=== PATIENT | female | born 1945 | race Caucasian/White ===

== ENCOUNTER 2016-09-13 20:28 | Emergency (ER) | payer MEDICARE, MEDICAID ==
--- NOTE | 2016-09-13 21:03 | ER Document Report ---
ED Medical Screen (RME) - General Chief Complaint: Laceration Stated Complaint: LEFT LEG INJURY Time seen by provider: 20:55 Mode of Arrival: Wheelchair Information source: Patient Notes: This 71-year-old female presents to ED for small scratch to the left lower leg puppy scratched her last night. Pitting edema to bilateral lower extremities much worse on the left. The small scratch is draining serous fluid. Right leg calf measurement 48 cm left calf measurement is 54. Brother in law states that she is always short of breath and usually on oxygen liters nasal cannula. Denies COPD. O2 sat 85 I have greeted and performed a rapid initial assessment of this patient. A comprehensive ED assessment and evaluation of the patient, analysis of test results and completion of medical decision making process will be conducted by an additional ED providers. TRAVEL OUTSIDE OF THE [place] IN LAST 30 DAYS: No - Related Data Allergies/Adverse Reactions: codeine [Codeine] Allergy (Verified 11/18/15 23:21) demeclocycline HCl [From Declomycin] Allergy (Verified 12/23/15 09:58) oxaprozin [From Daypro] Allergy (Verified 12/23/15 09:58) Past Medical History - Past Medical History Cardiac Medical History: Reports: Hx Hypercholesterolemia, Hx Hypertension Denies: Hx Coronary Artery Disease, Hx Heart Attack Pulmonary Medical History: Reports: Hx Asthma, Hx COPD, Hx Pneumonia Denies: Hx Bronchitis Neurological Medical History: Denies: Hx Cerebrovascular Accident, Hx Seizures Musculoskeltal Medical History: Reports Hx Arthritis - Immunizations Hx Diphtheria, Pertussis, Tetanus Vaccination: Yes
--- NOTE | 2016-09-13 21:37 | ER Document Report ---
ED Wound - General Mode of Arrival: Wheelchair Information source: Patient TRAVEL OUTSIDE OF THE [place] IN LAST 30 DAYS: No - HPI Patient complains to provider of: Laceration Capillary refill: < 3 seconds Sensations intact: Yes Distal pulses present: Yes <PEYTON MCNAIR - Last Filed: 09/13/16 21:42> <JIN MADSEN - Last Filed: 09/14/16 02:03> <SHARON ELLIS - Last Filed: 09/14/16 06:12> - General Chief Complaint: Edema Stated Complaint: LEFT LEG INJURY Notes: Patient is a 71-year-old female that presents to the emergency department today with complaints of a wound to her left carpenter. Patient states her dog scratched her left carpenter yesterday. Patient complains of this wound draining a large amount of clear fluid since yesterday. Patient has extensive bilateral edema to her lower extremities. Patient is not on any fluid pills. Family at bedside states this extensive edema has been an issue for several years (PEYTON MCNAIR) This 71-year-old female patient comes emergency room for a deep scratch to her left lower leg which is weeping fluid all day. She got a new puppy which scratched her left lower leg yesterday. She has been oozing clear fluid from the scratch since then. She has chronic edema to her lower extremities. Today there is some erythema to the lateral aspect of the left leg near the deep scratch. Family reports the patient can't take Lasix because it makes her urinate too much. They're quite resistant to her getting diuretics unless she is admitted to the hospital. (JIN MADSEN) - Related Data Allergies/Adverse Reactions: codeine [Codeine] Allergy (Verified 11/18/15 23:21) demeclocycline HCl [From Declomycin] Allergy (Verified 12/23/15 09:58) oxaprozin [From Daypro] Allergy (Verified 12/23/15 09:58) Past Medical History - General Information source: Patient - Social History Smoking Status: Former Smoker Cigarette use (# per day): No Frequency of alcohol use: None Drug Abuse: None Lives with: Family Family History: Reviewed & Not Pertinent Patient has suicidal ideation: No Patient has homicidal ideation: No - Past Medical History Cardiac Medical History: Reports: Hx Hypercholesterolemia, Hx Hypertension Pulmonary Medical History: Reports: Hx Asthma, Hx COPD, Hx Pneumonia Musculoskeltal Medical History: Reports Hx Arthritis Surgical Hx: Negative - Immunizations Hx Diphtheria, Pertussis, Tetanus Vaccination: Yes Hx Pneumococcal Vaccination: 08/22/14 <PEYTON MCNAIR - Last Filed: 09/13/16 21:42> Review of Systems - Review of Systems Skin: See HPI, Other - wound to left carpenter draining clear fluid -: Yes All other systems reviewed and negative <PEYTON MCNAIR - Last Filed: 09/13/16 21:42> Physical Exam - General General appearance: Appears well, Alert In distress: None - HEENT Head: Normocephalic, Atraumatic Eyes: Normal - Respiratory Respiratory status: No respiratory distress Chest status: Nontender Breath sounds: Normal - Cardiovascular Rhythm: Regular Heart sounds: Normal auscultation Murmur: No - Abdominal Inspection: Obese - morbidly Tenderness: Nontender - Extremities General upper extremity: Normal inspection, Nontender. No: Edema, Normal ROM General lower extremity: Edema - Extensive edema bilaterally, L>R - Neurological Neuro grossly intact: Yes Cognition: Normal Orientation: AAOx4 Speech: Normal - Psychological Associated symptoms: Normal affect, Normal mood <PEYTON MCNAIR - Last Filed: 09/13/16 21:42> <JIN MADSEN - Last Filed: 09/14/16 02:03> <SHARON ELLIS - Last Filed: 09/14/16 06:12> - Vital signs Vitals: Resp Pulse Ox 24 H 98 09/13/16 22:34 09/13/16 22:34 (SHARON ELLIS) - Skin Notes: 1.5 cm laceration into subcutaneous tissue on left carpenter draining clear fluid, skin lateral to this is shiny and erythematous (PEYTON MCNAIR) Course <PEYTON MCNAIR - Last Filed: 09/13/16 21:42> - Laboratory Result Diagrams: 09/13/16 22:32 09/13/16 22:32 - EKG Interpretation by Co EKG shows normal: Sinus rhythm, [place], Intervals, QRS Complexes, ST-T Waves Rate: Normal - 70 Rhythm: NSR Voltage: Consistant with LVH - Transfer of Care Care transferred to following provider: Dr. Ellis <JIN MADSEN - Last Filed: 09/14/16 02:03> - Laboratory Result Diagrams: 09/13/16 22:32 09/13/16 22:32 <SHARON ELLIS - Last Filed: 09/14/16 06:12> - Re-evaluation Re-evalutation: 09/13/16 23:51 The family and patient are agreeable to receiving Lasix and a Calderon catheter and staying the night in the emergency room to diurese prior to going home. This is being done because I believe the amount of edema and skin tension puts her at risk of the wound infection getting worse. (JIN MADSEN) 09/14/16 06:10 Dr. Madsen signed out the patient to me because I'm the nighttime your doctor. The plan was the patient said the Calderon catheter removed in the morning and to be discharged home with Lasix that should start taking every morning as well as antibiotic. Patient says she does feel much improved since receiving the Lasix. She is urinated 2 L overnight. She looks well. She has no difficulty breathing on exam. Her oxygen saturation is 96% on 2 liters. Her left lower extremity just has very faint redness. I did have a nurse come in and she says that the leg looks improved to her as well. I feel the patient is safe to continue with the plan to be discharged home. We will remove the calderon catheter and discharge her home as previous planned by Dr. Madsen. Patient encouraged return to ER immediately if she has any redness or increased swelling to the leg, or she feels unwell in anyway. Patient agrees and will be discharged home. Dictation of this chart was performed using voice recognition software; therefore, there may be some unintended grammatical errors. (SHARON ELLIS) - Vital Signs Vital signs: Temp Pulse Resp BP Pulse Ox 24 H 91 L 09/14/16 01:00 09/14/16 01:00 (SHARON ELLIS) - Laboratory Laboratory results interpreted by me: 09/13/16 09/13/16 09/13/16 22:32 22:32 22:32 RBC 3.54 L Hgb 10.4 L Hct 33.3 L MCHC 31.4 L RDW 15.3 H Seg Neutrophils % 82.7 H Lymphocytes % 6.3 L Absolute Lymphocytes 0.4 L BUN 24 H Est GFR ( Amer) 59 L Est GFR (Non-Af Amer) 49 L Glucose 128 H Alkaline Phosphatase 143 H Creatine Kinase 161 H NT-Pro-B Natriuret Pep 1260 H Albumin 3.4 L Urine Nitrite 09/13/16 23:20 RBC Hgb Hct MCHC RDW Seg Neutrophils % Lymphocytes % Absolute Lymphocytes BUN Est GFR ( Amer) Est GFR (Non-Af Amer) Glucose Alkaline Phosphatase Creatine Kinase NT-Pro-B Natriuret Pep Albumin Urine Nitrite POSITIVE H (JIN MADSEN) (SHARON ELLIS) - Transfer of Care Notes: 09/14/16 02:03 Patient will be allowed to remain here until the morning. Family should be called to pick her up first thing in the morning. The Calderon catheter should be removed. She has prescriptions for Lasix to take in the morning and antibiotics to take twice daily. Instructions and management should be modified if anything untoward or unexpected develops between now and when it is time for her family to pick her up in the morning. (JIN MADSEN) Discharge <PEYTON MCNAIR - Last Filed: 09/13/16 21:42> <IJN MADSEN - Last Filed: 09/14/16 02:03> <SHARON ELLIS - Last Filed: 09/14/16 06:12> - Discharge Clinical Impression: Peripheral edema Lower leg laceration with complication Qualifiers: Encounter type: initial encounter Laterality: left Qualified Code(s): S81.812A - Laceration without foreign body, left lower leg, initial encounter Condition: Stable Disposition: HOME, SELF-CARE Additional Instructions: Elevate your legs all the time. Keep the wound clean and dressed with absorbent gauze pads. Take the Lasix in the morning after you get up. The diuretic effect should last up to 6 hours. Take the antibiotics as prescribed. Follow-up with your doctor this week for recheck and further management of your edema and skin wound. RETURN TO THE EMERGENCY ROOM IF ANY NEW OR WORSENING SYMPTOMS. Prescriptions: Lasix 10mg 1 tab PO QAM #5 Amox Tr/Potassium Clavulanate [Augmentin 875-125 mg Tablet] 1 tab PO BID #20 tablet Referrals: [Primary Care Provider] - Follow up in 3-5 days Therese Attestation: 09/14/16 02:05 I personally performed the services described in the documentation, reviewed and edited the documentation which was dictated to the scribe in my presence, and it accurately records my words and actions. (JIN MADSEN) Scribe Documentation - Scribe Written by Therese:: Therese Sanches, 09/13/16 2151 acting as scribe for :: Yuri <PEYTON MCNAIR - Last Filed: 09/13/16 21:42>
[2016-09-13] MEDS ORDERED: AMOXICILLIN TR/POT CLAVULANATE 500-125 MG TAB PO ONE (22:01)
[2016-09-13] MEDS ORDERED: AMOXICILLIN TRIHYDRATE 500 MG CAPSULE PO ONE (22:01)
[2016-09-13 22:41] LABS: ABSOLUTE BASOPHILS # (AUTO) 0.1 10^3/uL (0.0-0.2); ABSOLUTE EOSINOPHILS # (AUTO) 0.1 10^3/uL (0.0-0.6); ABSOLUTE LYMPHOCYTES (AUTO) 0.4 10^3/uL (0.5-4.7); ABSOLUTE MONOCYTES (AUTO) 0.5 10^3/uL (0.1-1.4); ABSOLUTE NEUT (AUTO) 5.3 10^3/uL (1.7-8.2); BASOPHILS % (AUTO) 1.1 % (0-2); EOSINOPHILS % (AUTO) 2.2 % (0-6); HEMATOCRIT 33.3 % (36.0-47.0); HEMOGLOBIN 10.4 g/dL (12.0-15.5); HGB HCT DIFFERENCE -2.1; LYMPHOCYTES % (AUTO) 6.3 % (13-45); MEAN CORPUSCULAR HEMOGLOBIN 29.5 pg (27.0-33.4); MEAN CORPUSCULAR HGB CONC 31.4 g/dL (32.0-36.0); MEAN CORPUSCULAR VOLUME 94 fl (80-97); MONOCYTES % (AUTO) 7.7 % (3-13); RED BLOOD COUNT 3.54 10^6/uL (3.72-5.28); RED CELL DISTRIBUTION WIDTH 15.3 % (11.5-14.0); SEGMENTED NEUTROPHILS % (AUTO) 82.7 % (42-78); WHITE BLOOD COUNT 6.4 10^3/uL (4.0-10.5)
[2016-09-13 23:02] LABS: ALANINE AMINOTRANSFERASE 20 U/L (9-52); ALBUMIN 3.4 g/dL (3.5-5.0); ALKALINE PHOSPHATASE 143 U/L (38-126); ANION GAP 8 (5-19); ASPARTATE AMINO TRANSFERASE 21 U/L (14-36); BILIRUBIN,TOTAL 0.6 mg/dL (0.2-1.3); BLOOD UREA NITROGEN 24 mg/dL (7-20); CALCIUM 9.1 mg/dL (8.4-10.2); CARBON DIOXIDE 30 mmol/L (22-30); CHLORIDE 104 mmol/L (98-107); CREATINE KINASE 161 U/L (30-135); GLUCOSE 128 mg/dL (75-110); LIPASE 87.4 U/L (23-300); POTASSIUM 4.7 mmol/L (3.6-5.0); TOTAL PROTEIN 6.6 g/dL (6.3-8.2)
[2016-09-13 23:18] LABS: CREATINE KINASE MB 0.84 ng/mL (<4.55); TROPONIN I 0.032 ng/mL
[2016-09-13 23:38] LABS: APPEARANCE,URINE SLIGHTLY-CLOUDY; BILIRUBIN,URINE NEGATIVE (NEGATIVE); GLUCOSE, URINE NEGATIVE (NEGATIVE); KETONES,URINE NEGATIVE (NEGATIVE); LEUKOCYTE ESTERASE,URINE NEGATIVE (NEGATIVE); NITRITE,URINE POSITIVE (NEGATIVE); PROTEIN,URINE NEGATIVE (NEGATIVE); URINE SPECIFIC GRAVITY 1.015; UROBILINOGEN,URINE NEGATIVE mg/dL (<2.0)
[2016-09-13] MEDS ORDERED: FUROSEMIDE INJ/PF 20 MG/2 ML SDV IV ONE (23:50)
--- NOTE | 2016-09-13 23:56 | EKG REPORT ---
SEVERITY:- ABNORMAL ECG - SINUS RHYTHM PROBABLE LEFT VENTRICULAR HYPERTROPHY : Confirmed by: Tasneem Martinez 13-Sep-2016 23:55:04
[2016-09-14 06:15] VITALS: BP 101/54
== END 2016-09-14 06:30 | disposition home or self-care (01) ==
LOC: ER 20:28
DX: S81.812A Laceration without foreign body, left lower leg, initial encounter (principal); R60.9 Edema, unspecified; E66.01 Morbid (severe) obesity due to excess calories; W54.1XXA Struck by dog, initial encounter; Y92.009 Unspecified place in unspecified non-institutional (private) residence as the place of occurrence of the external cause; E78.00 Pure hypercholesterolemia, unspecified; I10 Essential (primary) hypertension; J44.9 Chronic obstructive pulmonary disease, unspecified; J45.909 Unspecified asthma, uncomplicated; Z87.891 Personal history of nicotine dependence; Z88.6 Allergy status to analgesic agent
CPT/HCPCS: 93005; 99284; 51702; 96374; 36415; 82553; 82550; 83690; 85025; 80053; 81001; 84484; 83880; 71020; 93010; A9270 ×2; J1940

== ENCOUNTER → 2016-10-29 | Outpatient (CLI) | payer MEDICARE, MEDICAID ==
--- NOTE | 2016-10-29 19:18 | XCELERA REPORT ---
[address] [address] Transthoracic Echocardiogram Report Name: ASHLEY COTTRELL Age: 71 yrs Gender: Female : 1945 Patient Status: Outpatient Patient Location: Study Date: 10/29/2016 01:06 PM Height: 60 in Weight: 296 lb BSA: 2.2 m2 Procedure: A complete two-dimensional transthoracic echocardiogram was performed (2D, M-mode, spectral and color flow Doppler). The study was technically difficult with many images being suboptimal in quality. Reason For Study: EDEMA Ordering Physician: KATERYNA CHAWLA Performed By: Ariel Cazares Interpretation Summary Left ventricular systolic function is low normal. There is borderline concentric left ventricular hypertrophy. Doppler measurements suggest pseudonormalized left ventricular relaxation, which is associated with grade II/IV or mild to moderate diastolic dysfunction The left ventricle is grossly normal size. Not all wall segments were well visualized. Wall motion cannot be accurately commented on, but no definite regional wall motion abnormalities noted. The right ventricle appears to be hypertrophied The right ventricle is moderately dilated. The right ventricular systolic function is moderately reduced. The left atrium is mildly dilated. The right atrium is mild to moderately dilated. There is no mitral valve stenosis. There is a trace to mild amount of mitral regurgitation There is no aortic valve stenosis No aortic regurgitation is present. There is a trace to mild amount of tricuspid regurgitation There is servere pulmonary hypertension by echo Best estimated right ventricular systolic pressure is elevated at >60mmHg (80-90mmHg). The aortic root is not well visualized. The inferior vena cava appeared dilated and decreased < 50% with respiration (RAP 15-20 mmHg) There is no pericardial effusion. MMode/2D Measurements \T\ Calculations RVDd: 2.5 cm LVIDd: 5.7 cm FS: 26.9 % Ao root diam: 2.9 cm IVSd: 1.0 cm LVIDs: 4.2 cm EDV(Teich): 162.2 ml LVPWd: 0.96 cm ESV(Teich): 78.1 ml Ao root area: 6.5 cm2 EF(Teich): 51.9 % LA dimension: 4.1 cm Doppler Measurements \T\ Calculations MV E max mariajose: MV P1/2t max mariajose: Ao V2 max: LV V1 max P.9 cm/sec 89.3 cm/sec 171.3 cm/sec 3.8 mmHg MV A max mariajose: MV P1/2t: 60.5 msec Ao max PG: LV V1 max: 94.8 cm/sec 11.7 mmHg 97.1 cm/sec MV E/A: 0.91 MVA(P1/2t): 3.6 cm2 MV dec slope: 432.6 cm/sec2 MV dec time: 0.20 sec PA V2 max: PI end-d mariajose: TR max mariajose: RAP systole: 111.8 cm/sec 154.7 cm/sec 443.6 cm/sec 10.0 mmHg PA max PG: TR max P.0 mmHg 78.7 mmHg RVSP(TR): 88.7 mmHg Left Ventricle The left ventricle is grossly normal size. There is borderline concentric left ventricular hypertrophy. Left ventricular systolic function is low normal. Doppler measurements suggest pseudonormalized left ventricular relaxation, which is associated with grade II/IV or mild to moderate diastolic dysfunction. Not all wall segments were well visualized. Wall motion cannot be accurately commented on, but no definite regional wall motion abnormalities noted. Right Ventricle The right ventricle is moderately dilated. The right ventricle appears to be hypertrophied. The right ventricular systolic function is moderately reduced. Atria The right atrium is mild to moderately dilated. The left atrium is mildly dilated. Interarterial septum not well visualized and not well dopplered. Cannot comment on ASD/PFO presence. Mitral Valve The mitral valve is grossly normal. There is no mitral valve stenosis. There is a trace to mild amount of mitral regurgitation. Aortic Valve The aortic valve is grossly normal. There is no aortic valve stenosis. No aortic regurgitation is present. Tricuspid Valve The tricuspid valve is not well visualized secondary to technical limitations. There is no tricuspid stenosis. There is a trace to mild amount of tricuspid regurgitation. There is servere pulmonary hypertension by echo. Best estimated right ventricular systolic pressure is elevated at >60mmHg. Pulmonic Valve The pulmonic valve is not well visualized. Great Vessels The aortic root is not well visualized. The inferior vena cava appeared dilated and decreased < 50% with respiration (RAP 15-20 mmHg). Effusions There is no pericardial effusion. : KATERYNA CHAWLA > Tasneem Martinez
== END ==
LOC: SP 12:26
PROVIDERS: ATTEND Physician Assistant
DX: R60.9 Edema, unspecified (principal)
CPT/HCPCS: 93306

== ENCOUNTER 2016-12-08 15:53 | Inpatient (IN) | payer MEDICARE, MEDICAID ==
[2016-12-08] MEDS ORDERED: HYDRALAZINE HCL INJ/PF 20 MG/1 ML SDV IV PRN (17:54)
[2016-12-08] MEDS ORDERED: ONDANSETRON HCL INJ/PF 4 MG/2 ML SDV IV PRN (17:55)
[2016-12-08] MEDS ORDERED: ALBUTEROL SULFATE 0.083% NEB 2.5 MG/3 ML AMPUL NEB PRN (17:59)
--- NOTE | 2016-12-08 18:11 | PDOC H&P ---
History of Present Illness Admission Date/PCP: 12/08/16 15:53 YARELIS MARTINEZ Patient complains of: Shortness of breath History of Present Illness: ASHLEY COTTRELL is a 71 year old female with past medical history of diastolic heart failure, severe pulmonary hypertension, morbid obesity, oxygen dependent COPD, systemic hypertension is sent to the hospital for direct admission from cardiology (Dr. Martinez) office where she was noted to have shortness of breath, hypoxia with O2 sat in the mid 80s on supplemental oxygen and peripheral edema. She denies chest pain. He states that her symptoms have been worsening over the past several weeks as she is noted increasing swelling in her legs and increasing shortness of breath. She has also started to notice discomfort and redness in left leg in particular. Medications listed below have not been verified at time of this documentation. Past Medical History Cardiac Medical History: Reports: Congestive Heart Failure - 2/4 LVDD, normal EF , Hyperlipidema, Hypertension, Other - Severe pulmonary hypertension Denies: Coronary Artery Disease, Myocardial Infarction Pulmonary Medical History: Reports: Asthma, Chronic Obstructive Pulmonary Disease (COPD) - Home oxygen dependent 3.5 L nasal cannula, Pneumonia Denies: Bronchitis Neurological Medical History: Denies: Seizures Endocrine Medical History: Denies: Diabetes Mellitus Type 1, Diabetes Mellitus Type 2 Musculoskeltal Medical History: Reports: Arthritis Hematology: Denies: Anemia Past Surgical History Past Surgical History: Reports: Cholecystectomy, Gastric Bypass Surgery, Hysterectomy, Other - Reduction mammoplasty Social History Information Source: Patient Lives with: Family Smoking Status: Former Smoker Frequency of Alcohol Use: None Hx Recreational Drug Use: No Hx Prescription Drug Abuse: No - Advance Directive Resuscitation Status: Full Code Surrogate healthcare decision maker:: Sister-Yessenia Condon, secondary brother- Paulo Condon Family History Family History: CAD, DM Parental Family History Reviewed: Yes Children Family History Reviewed: Yes Sibling(s) Family History Reviewed.: Yes Medication/Allergy Home Medications: Docusate Sodium [Colace 100 mg Capsule] 100 mg PO BID PRN #60 capsule 12/23/15 Oxycodone HCl/Acetaminophen [Percocet 5-325 mg Tablet] 1 tab PO QID #20 tablet 12/23/15 Albuterol Sulfate [Ventolin Hfa] 1 - 2 puff IH Q4 PRN 01/15/16 Tiotropium [place] [Spiriva Handihaler 18 mcg/dose (30 Dose)] 1 cap IH DAILY Amox Tr/Potassium Clavulanate [Augmentin 875-125 mg Tablet] 1 tab PO BID #20 tablet 09/14/16 Lasix 10mg 1 tab PO QAM #5 09/14/16 Allergies/Adverse Reactions: codeine [Codeine] Allergy (Verified 11/18/15 23:21) demeclocycline HCl [From Declomycin] Allergy (Verified 12/23/15 09:58) oxaprozin [From Daypro] Allergy (Verified 12/23/15 09:58) Review of Systems Constitutional: ABSENT: chills, fever(s), headache(s), weight gain, weight loss Eyes: ABSENT: visual disturbances Ears: ABSENT: hearing changes Cardiovascular: PRESENT: dyspnea on exertion, edema. ABSENT: chest pain, orthropnea, palpitations Respiratory: PRESENT: dyspnea. ABSENT: cough, hemoptysis Gastrointestinal: ABSENT: abdominal pain, constipation, diarrhea, hematemesis, hematochezia, nausea, vomiting Genitourinary: ABSENT: dysuria, hematuria Musculoskeletal: ABSENT: joint swelling Integumentary: PRESENT: erythema - Left leg. ABSENT: rash, wounds Neurological: ABSENT: abnormal gait, abnormal speech, confusion, dizziness, focal weakness, syncope Psychiatric: ABSENT: anxiety, depression, homidical ideation, suicidal ideation Endocrine: ABSENT: cold intolerance, heat intolerance, polydipsia, polyuria Hematologic/Lymphatic: ABSENT: easy bleeding, easy bruising Physical Exam Vital Signs: PHYSICAL EXAM: GENERAL: Appears well, no acute distress, morbidly obese HEENT: Normocephalic, no scleral icterus, conjunctiva clear, EOEM intact, PERRLA , moist mucous membranes NECK: trachea midline, no thyromegally RESPIRATORY: Clear to auscultation, no wheezes/rhonchi CARDIAC: Regular rate and rhythm, no murmur/flory/rub ABDOMEN: Soft, no distension, no tenderness, no guarding, normal bowel sounds, negative Tristan sign RECTAL: deferred : deferred EXTREMITIES: Pitting edema in bilateral lower extremities MUSCULOSKELETAL: No joint swelling or deformity VASCULAR: normal peripheral pulses NEUROLOGIC: Alert, oriented to person/place/time, normal speech, cranial nerves grossly intact, 5/5 strength in all extremities, tactile sensation intact in all extremities SKIN: Erythema and left lower extremity distal to the knee with several small blistering areas PSYCHIATRIC: Normal mood, normal affect Assessment & Plan - Diagnosis (1) Acute on chronic respiratory failure with hypoxemia Is this a current diagnosis for this admission?: YesPlan: Continue oxygen supplementation to maintain O2 sat greater than 95%. Patient is home oxygen dependent at baseline. Baseline oxygen requirement 3.5 L nasal cannula. (2) Acute diastolic CHF (congestive heart failure) Is this a current diagnosis for this admission?: YesPlan: Admit to [facility] bed. Telemetry monitoring. Check chest x-ray, proBNP, basic metabolic panel, TSH. Start Lasix 40 mg IV every 12 hours. Monitor intake and output. 1500 mL fluid restriction cardiac diet. Patient education for CHF. Consult Dr. Martinez of cardiology. Verify home medications and start patient on evidence-based beta jamaal if she has not already taking this medication. (3) Moderate to severe pulmonary hypertension Is this a current diagnosis for this admission?: YesPlan: Continue oxygen supplementation. Verify home medications. Treat acutely decompensated CHF. (4) COPD (chronic obstructive pulmonary disease) Is this a current diagnosis for this admission?: YesPlan: Albuterol nebulizer treatments. Verify home medications and resume. (5) Hypertension Is this a current diagnosis for this admission?: YesPlan: Verify home medications and resume. When necessary IV hydralazine for now. (6) Morbid obesity Is this a current diagnosis for this admission?: Yes (7) Ambulatory dysfunction Is this a current diagnosis for this admission?: YesPlan: Physical therapy evaluation. (8) Left leg cellulitis Is this a current diagnosis for this admission?: YesPlan: Start IV Ancef. Check blood cultures. Check left lower extremity Doppler. - Time Time Spent: Greater than 70 Minutes - Inpatient Certification Based on my medical assessment, after consideration of the patient's comorbidities, presenting symptoms, or acuity I expect that the services needed warrant INPATIENT care.: Yes I certify that my determination is in accordance with my understanding of Medicare's requirements for reasonable and necessary INPATIENT services [42 CFR 412.3e].: Yes Medical Necessity: Need Close Monitoring Due to Risk of Patient Decompensation, Need for IV Antibiotics
[2016-12-08 18:55] LABS: ABSOLUTE EOSINOPHILS # (AUTO) 0.2 10^3/uL (0.0-0.6); ABSOLUTE LYMPHOCYTES (AUTO) 0.9 10^3/uL (0.5-4.7); ABSOLUTE MONOCYTES (AUTO) 0.4 10^3/uL (0.1-1.4); ABSOLUTE NEUT (AUTO) 3.2 10^3/uL (1.7-8.2); EOSINOPHILS % (AUTO) 4.4 % (0-6); HEMATOCRIT 30.4 % (36.0-47.0); HEMOGLOBIN 9.4 g/dL (12.0-15.5); HGB HCT DIFFERENCE -2.2; LYMPHOCYTES % (AUTO) 18.3 % (13-45); MEAN CORPUSCULAR HEMOGLOBIN 27.5 pg (27.0-33.4); MEAN CORPUSCULAR VOLUME 89 fl (80-97); MONOCYTES % (AUTO) 7.6 % (3-13); RED BLOOD COUNT 3.43 10^6/uL (3.72-5.28); RED CELL DISTRIBUTION WIDTH 17.2 % (11.5-14.0); SEGMENTED NEUTROPHILS % (AUTO) 68.7 % (42-78); WHITE BLOOD COUNT 4.7 10^3/uL (4.0-10.5)
[2016-12-08] MEDS ORDERED: CEFAZOLIN 1 GM/D5W RTU 1 GM/50 ML RTUPB IV ONE (19:00)
[2016-12-08 19:13] LABS: ANION GAP 11 (5-19); BLOOD UREA NITROGEN 29 mg/dL (7-20); CALCIUM 9.1 mg/dL (8.4-10.2); CARBON DIOXIDE 33 mmol/L (22-30); CHLORIDE 106 mmol/L (98-107); CREATININE RESULT 0.97 mg/dL (0.52-1.25); GLUCOSE 96 mg/dL (75-110); POTASSIUM 4.5 mmol/L (3.6-5.0); SODIUM 149.7 mmol/L (137-145)
[2016-12-08] MEDS: FUROSEMIDE INJ/PF 40 MG/4 ML SDV IV SCH (19:44)
[2016-12-08 21:41] LABS: ALANINE AMINOTRANSFERASE 21 U/L (9-52); ALBUMIN 3.1 g/dL (3.5-5.0); ALKALINE PHOSPHATASE 140 U/L (38-126); ANION GAP 12 (5-19); ASPARTATE AMINO TRANSFERASE 17 U/L (14-36); BILIRUBIN,DIRECT 0.4 mg/dL (0.0-0.4); BILIRUBIN,TOTAL 0.7 mg/dL (0.2-1.3); BLOOD UREA NITROGEN 28 mg/dL (7-20); CALCIUM 8.7 mg/dL (8.4-10.2); CARBON DIOXIDE 31 mmol/L (22-30); CHLORIDE 105 mmol/L (98-107); CHOLESTEROL 126.98 mg/dL (0-200); Direct HDL 50 mg/dL (>40); GLUCOSE 129 mg/dL (75-110); POTASSIUM 4.2 mmol/L (3.6-5.0); SODIUM 148.1 mmol/L (137-145); TRIGLYCERIDES 48 mg/dL (<150)
[2016-12-08 21:52] LABS: DIRECT LDL 65 mg/dL (<100)
[2016-12-08] MEDS: HEPARIN SOD (PORCINE) 5,000 UNIT/ML 1 ML SYRINGE SUBCUT SCH (21:56)
[2016-12-08] MEDS: CEFAZOLIN 1 GM/D5W RTU 1 GM/50 ML RTUPB IV SCH (23:36)
[2016-12-09 05:08] LABS: ABSOLUTE BASOPHILS # (AUTO) 0.1 10^3/uL (0.0-0.2); ABSOLUTE EOSINOPHILS # (AUTO) 0.3 10^3/uL (0.0-0.6); ABSOLUTE LYMPHOCYTES (AUTO) 0.6 10^3/uL (0.5-4.7); ABSOLUTE MONOCYTES (AUTO) 0.5 10^3/uL (0.1-1.4); ABSOLUTE NEUT (AUTO) 3.5 10^3/uL (1.7-8.2); BASOPHILS % (AUTO) 1.3 % (0-2); EOSINOPHILS % (AUTO) 6.1 % (0-6); HEMATOCRIT 27.7 % (36.0-47.0); HEMOGLOBIN 8.8 g/dL (12.0-15.5); HGB HCT DIFFERENCE -1.3; LYMPHOCYTES % (AUTO) 12.8 % (13-45); MEAN CORPUSCULAR HEMOGLOBIN 27.9 pg (27.0-33.4); MEAN CORPUSCULAR HGB CONC 31.7 g/dL (32.0-36.0); MEAN CORPUSCULAR VOLUME 88 fl (80-97); MONOCYTES % (AUTO) 9.3 % (3-13); RED BLOOD COUNT 3.15 10^6/uL (3.72-5.28); SEGMENTED NEUTROPHILS % (AUTO) 70.5 % (42-78)
[2016-12-09] MEDS: CEFAZOLIN 1 GM/D5W RTU 1 GM/50 ML RTUPB IV SCH ×4 (05:15→23:56)
[2016-12-09] MEDS: HEPARIN SOD (PORCINE) 5,000 UNIT/ML 1 ML SYRINGE SUBCUT SCH ×3 (05:15→21:40)
[2016-12-09] MEDS: FUROSEMIDE INJ/PF 40 MG/4 ML SDV IV SCH ×2 (05:15→17:30)
[2016-12-09 05:20] LABS: ANION GAP 10 (5-19); BLOOD UREA NITROGEN 30 mg/dL (7-20); CALCIUM 8.7 mg/dL (8.4-10.2); CARBON DIOXIDE 31 mmol/L (22-30); CHLORIDE 106 mmol/L (98-107); CREATININE RESULT 0.99 mg/dL (0.52-1.25); GLUCOSE 132 mg/dL (75-110); MAGNESIUM 1.9 mg/dL (1.6-2.3); POTASSIUM 4.3 mmol/L (3.6-5.0); SODIUM 146.9 mmol/L (137-145)
[2016-12-09 05:39] LABS: FREE T3 2.63 pg/mL (2.77-5.27)
[2016-12-09 05:48] LABS: THYROID STIMULATING HORMONE 1.63 uIU/mL (0.47-4.68)
--- NOTE | 2016-12-09 07:37 | EKG REPORT ---
SEVERITY:- ABNORMAL ECG - SINUS RHYTHM PROBABLE LEFT VENTRICULAR HYPERTROPHY : Confirmed by: Leana Napoles MD 09-Dec-2016 07:37:14
[2016-12-09] MEDS: ASPIRIN 81 MG TABLET, ENT COATED PO SCH (07:57)
[2016-12-09] MEDS: OXYBUTYNIN CHLORIDE 5 MG TABLET PO SCH ×2 (09:13→21:41)
[2016-12-09] MEDS: CITALOPRAM HYDROBROMIDE 20 MG TABLET PO SCH (09:13)
[2016-12-09] MEDS: CARVEDILOL 3.125 MG TABLET PO SCH ×2 (09:14→21:41)
[2016-12-09] MEDS: BENAZEPRIL HCL 10 MG TABLET PO SCH (09:14)
--- NOTE | 2016-12-09 09:15 | PDOC PROGRESS REPORT ---
Physical Exam Vital Signs: Temp Pulse Resp BP Pulse Ox 97.8 F 76 22 H 126/69 H 92 12/09/16 07:29 12/09/16 07:29 12/09/16 07:29 12/09/16 07:29 12/09/16 07:29 Intake & Output 12/08/16 12/09/16 12/10/16 06:59 06:59 06:59 Intake Total 368 Balance 368 Weight 139.2 kg Results Laboratory Results: 12/09/16 04:50 12/09/16 04:50 12/08/16 12/08/16 12/08/16 18:45 18:45 18:45 WBC 4.7 RBC 3.43 L Hgb 9.4 L Hct 30.4 L MCV 89 MCH 27.5 MCHC 31.0 L RDW 17.2 H Plt Count 215 Seg Neutrophils % 68.7 Lymphocytes % 18.3 Monocytes % 7.6 Eosinophils % 4.4 Basophils % 1.0 Absolute Neutrophils 3.2 Absolute Lymphocytes 0.9 Absolute Monocytes 0.4 Absolute Eosinophils 0.2 Absolute Basophils 0.0 Sodium 149.7 H Potassium 4.5 Chloride 106 Carbon Dioxide 33 H Anion Gap 11 BUN 29 H Creatinine 0.97 Est GFR ( Amer) > 60 Est GFR (Non-Af Amer) 56 L Glucose 96 Calcium 9.1 Magnesium Total Bilirubin AST ALT Alkaline Phosphatase Total Protein Albumin Triglycerides Cholesterol LDL Cholesterol Direct VLDL Cholesterol HDL Cholesterol TSH 2.26 Free T4 Free T3 pg/mL 12/08/16 12/09/16 12/09/16 21:10 04:50 04:50 WBC 5.0 RBC 3.15 L Hgb 8.8 L Hct 27.7 L MCV 88 MCH 27.9 MCHC 31.7 L RDW 17.0 H Plt Count 229 Seg Neutrophils % 70.5 Lymphocytes % 12.8 L Monocytes % 9.3 Eosinophils % 6.1 H Basophils % 1.3 Absolute Neutrophils 3.5 Absolute Lymphocytes 0.6 Absolute Monocytes 0.5 Absolute Eosinophils 0.3 Absolute Basophils 0.1 Sodium 148.1 H 146.9 H Potassium 4.2 4.3 Chloride 105 106 Carbon Dioxide 31 H 31 H Anion Gap 12 10 BUN 28 H 30 H Creatinine 1.00 0.99 Est GFR ( Amer) > 60 > 60 Est GFR (Non-Af Amer) 55 L 55 L Glucose 129 H 132 H Calcium 8.7 8.7 Magnesium 1.9 Total Bilirubin 0.7 AST 17 ALT 21 Alkaline Phosphatase 140 H Total Protein 6.0 L Albumin 3.1 L Triglycerides 48 Cholesterol 126.98 LDL Cholesterol Direct 65 VLDL Cholesterol 10.0 HDL Cholesterol 50 TSH Free T4 Free T3 pg/mL 12/09/16 04:50 WBC RBC Hgb Hct MCV MCH MCHC RDW Plt Count Seg Neutrophils % Lymphocytes % Monocytes % Eosinophils % Basophils % Absolute Neutrophils Absolute Lymphocytes Absolute Monocytes Absolute Eosinophils Absolute Basophils Sodium Potassium Chloride Carbon Dioxide Anion Gap BUN Creatinine Est GFR ( Amer) Est GFR (Non-Af Amer) Glucose Calcium Magnesium Total Bilirubin AST ALT Alkaline Phosphatase Total Protein Albumin Triglycerides Cholesterol LDL Cholesterol Direct VLDL Cholesterol HDL Cholesterol TSH 1.63 Free T4 1.12 Free T3 pg/mL 2.63 L 12/08/16 18:45 NT-Pro-B Natriuret Pep 1830 H Impressions: Chest X-Ray 12/08/16 17:58 IMPRESSION: Cardiomegaly. Linear atelectasis. Mild vascular prominence. Assessment & Plan - Diagnosis (1) Acute on chronic respiratory failure with hypoxemia Is this a current diagnosis for this admission?: YesPlan: Continue oxygen supplementation to maintain O2 sat greater than 95%. Patient is home oxygen dependent at baseline. Baseline oxygen requirement 3.5 L nasal cannula. (2) Acute diastolic CHF (congestive heart failure) Is this a current diagnosis for this admission?: YesPlan: Continue Lasix 40 mg IV every 12 hours. Monitor intake and output. 1500 mL fluid restriction cardiac diet. Patient education for CHF. Consulted Dr. Martinez of cardiology. Continue benazepril. Add Coreg 3.125 mg twice daily. (3) Moderate to severe pulmonary hypertension Is this a current diagnosis for this admission?: YesPlan: Continue oxygen supplementation. Treat acutely decompensated CHF. CHF, COPD, morbid obesity all contributing. (4) COPD (chronic obstructive pulmonary disease) Is this a current diagnosis for this admission?: YesPlan: Albuterol nebulizer treatments when necessary. Resume outpatient Singulair and Advair. (5) Hypertension Is this a current diagnosis for this admission?: YesPlan: Resume benazepril. Start Coreg. When necessary IV hydralazine for now. (6) Morbid obesity Is this a current diagnosis for this admission?: Yes (7) Ambulatory dysfunction Is this a current diagnosis for this admission?: YesPlan: Physical therapy evaluation. (8) Left leg cellulitis Is this a current diagnosis for this admission?: YesPlan: Continue IV Ancef. Check blood cultures. Check left lower extremity Doppler. (9) Anemia Is this a current diagnosis for this admission?: YesPlan: Check iron, B-12, folic acid level. Monitor H&H for stability. - Time Time Spent with patient: 35 or more minutes
[2016-12-09] MEDS ORDERED: LANSOPRAZOLE 15 MG TAB.RAP.DR PO ONE (10:00)
--- NOTE | 2016-12-09 11:08 | XCELERA REPORT ---
[address] [address] Lower Extremity Venous Evaluation Name: ASHLEY COTTRELL Age: 71 yrs Gender: Female : 1945 Patient Status: Inpatient Patient Location: [id number] Study Date: 12/09/2016 09:11 AM Procedure: Color flow and duplex imaging bilaterally of the veins of the lower extremities as well as the Common Femoral veins. Reason For Study: edema, left lower extremity redness/pain Ordering Physician: MARIS PICKARD Performed By: Ariel Cazares Right Sided Venous Evaluation Normal vessel filling wall to wall, compression and augmentation as well as Colour flow down to the infrageniculate veins. Left Sided Venous Evaluation Normal vessel filling wall to wall, compression and augmentation as well as Colour flow down to the infrageniculate veins. Interpretation Summary No duplex evidence of DVT or obstruction in the bilateral lower extremities. : MARIS PICKARD [place]
--- NOTE | 2016-12-09 11:54 | PDOC PROGRESS REPORT ---
Subjective Progress Note for:: 12/09/16 Subjective:: Patient was admitted directly from my office yesterday. She was noted to be in CHF, severely hypoxemic with O2 sat at around 85%, with increasing pedal edema and shortness of breath. Today, Patient seems to be doing better with gradual improvement. Pt is denying any chest arm or neck discomfort. Patient denying any PND, orthopnea. Patient denied any sustained palpitations, dizziness, syncope, near syncope. Patient denying any fever chills. Patient denying any other significant discomfort. Patient has noted improvement in her pedal edema and also shortness of breath. She is currently has a Santiago catheter. Patient is maintaining sinus rhythm. Review of systems: Rest review of systems negative. Medications: Medications have been reviewed. Physical Exam Vital Signs: Temp Pulse Resp BP Pulse Ox 97.8 F 76 22 H 126/69 H 92 12/09/16 07:29 12/09/16 07:29 12/09/16 07:29 12/09/16 07:29 12/09/16 07:29 Intake & Output 12/08/16 12/09/16 12/10/16 06:59 06:59 06:59 Intake Total 368 Balance 368 Weight 139.2 kg Exam: GENERAL: well-nourished and in no acute distress. Alert and oriented x3 HEAD: Atraumatic, normocephalic. EYES: Pupils equal round and reactive to light, extraocular movements intact, sclera anicteric, conjunctiva are normal. ENT: TMs normal, nares patent, oropharynx clear without exudates. Moist mucous membranes. No oral ulcerations or bleeding gums noted NECK: supple without lymphadenopathy. Trachea is central. No cervical or axillary lymphadenopathy noted. Carotids are 2+, JVD 10 CENTIMETERS LUNGS: Respiration seems nonlabored, no significant accessory muscle action noted. Breath sounds clear to auscultation bilaterally and equal noted. No wheezes rales or rhonchi noted. No significant dullness noted on percussion. CHEST: Palpation of the chest wall shows no significant chest wall tenderness. No other significant abnormalities noted. HEART: [place] [employer], No PSH, 1/6 SONDRA aortic area, 1/6 mccray systolic murmur mitral area, no rubs, no gallops. ABDOMEN: Soft, no significant tenderness appreciated, normoactive bowel sounds. No guarding, no rebound. No rigidity noted . No masses appreciated. EXTREMITIES: Pedal pulses are 1-2+, no calf tenderness noted. No clubbing or cyanosis.2-3 + pedal edema noted NEUROLOGICAL: Focused neurological exam showed no significant neurologic deficit. Normal speech, no focal weakness appreciated. PSYCH: Normal mood, normal affect. Judgment and insight within normal limits. SKIN: No significant ecchymosis, rash, minor ulceration noted left foot dorsum aspect. MUSCULOSKELETAL EXAM: No significant joint swelling noted. Results Laboratory Results: 12/09/16 04:50 12/09/16 04:50 12/08/16 12/08/16 12/08/16 18:45 18:45 18:45 WBC 4.7 RBC 3.43 L Hgb 9.4 L Hct 30.4 L MCV 89 MCH 27.5 MCHC 31.0 L RDW 17.2 H Plt Count 215 Seg Neutrophils % 68.7 Lymphocytes % 18.3 Monocytes % 7.6 Eosinophils % 4.4 Basophils % 1.0 Absolute Neutrophils 3.2 Absolute Lymphocytes 0.9 Absolute Monocytes 0.4 Absolute Eosinophils 0.2 Absolute Basophils 0.0 Retic Count (auto) Absolute Retic Sodium 149.7 H Potassium 4.5 Chloride 106 Carbon Dioxide 33 H Anion Gap 11 BUN 29 H Creatinine 0.97 Est GFR ( Amer) > 60 Est GFR (Non-Af Amer) 56 L Glucose 96 Calcium 9.1 Magnesium Total Bilirubin AST ALT Alkaline Phosphatase Total Protein Albumin Triglycerides Cholesterol LDL Cholesterol Direct VLDL Cholesterol HDL Cholesterol TSH 2.26 Free T4 Free T3 pg/mL 12/08/16 12/09/16 12/09/16 21:10 04:50 04:50 WBC 5.0 RBC 3.15 L Hgb 8.8 L Hct 27.7 L MCV 88 MCH 27.9 MCHC 31.7 L RDW 17.0 H Plt Count 229 Seg Neutrophils % 70.5 Lymphocytes % 12.8 L Monocytes % 9.3 Eosinophils % 6.1 H Basophils % 1.3 Absolute Neutrophils 3.5 Absolute Lymphocytes 0.6 Absolute Monocytes 0.5 Absolute Eosinophils 0.3 Absolute Basophils 0.1 Retic Count (auto) Absolute Retic Sodium 148.1 H 146.9 H Potassium 4.2 4.3 Chloride 105 106 Carbon Dioxide 31 H 31 H Anion Gap 12 10 BUN 28 H 30 H Creatinine 1.00 0.99 Est GFR ( Amer) > 60 > 60 Est GFR (Non-Af Amer) 55 L 55 L Glucose 129 H 132 H Calcium 8.7 8.7 Magnesium 1.9 Total Bilirubin 0.7 AST 17 ALT 21 Alkaline Phosphatase 140 H Total Protein 6.0 L Albumin 3.1 L Triglycerides 48 Cholesterol 126.98 LDL Cholesterol Direct 65 VLDL Cholesterol 10.0 HDL Cholesterol 50 TSH Free T4 Free T3 pg/mL 12/09/16 12/09/16 04:50 04:50 WBC RBC Hgb Hct MCV MCH MCHC RDW Plt Count Seg Neutrophils % Lymphocytes % Monocytes % Eosinophils % Basophils % Absolute Neutrophils Absolute Lymphocytes Absolute Monocytes Absolute Eosinophils Absolute Basophils Retic Count (auto) 2.12 Absolute Retic 0.068 Sodium Potassium Chloride Carbon Dioxide Anion Gap BUN Creatinine Est GFR ( Amer) Est GFR (Non-Af Amer) Glucose Calcium Magnesium Total Bilirubin AST ALT Alkaline Phosphatase Total Protein Albumin Triglycerides Cholesterol LDL Cholesterol Direct VLDL Cholesterol HDL Cholesterol TSH 1.63 Free T4 1.12 Free T3 pg/mL 2.63 L 12/08/16 18:45 NT-Pro-B Natriuret Pep 1830 H EKG Comments: Sinus rhythm, possible LVH, no acute ST-T wave changes noted. Impressions: Chest X-Ray 12/08/16 17:58 IMPRESSION: Cardiomegaly. Linear atelectasis. Mild vascular prominence. Assessment & Plan - Diagnosis (1) Acute diastolic CHF (congestive heart failure) Is this a current diagnosis for this admission?: Yes (2) Acute on chronic respiratory failure with hypoxemia Is this a current diagnosis for this admission?: Yes (3) Ambulatory dysfunction Is this a current diagnosis for this admission?: Yes (4) Anemia Qualifiers: Anemia type: iron deficiency Iron deficiency anemia type: inadequate dietary iron intake Qualified Code(s): D50.8 - Other iron deficiency anemias Is this a current diagnosis for this admission?: Yes (5) COPD (chronic obstructive pulmonary disease) Qualifiers: Emphysema type: unspecified Is this a current diagnosis for this admission?: Yes (6) Hypertension Qualifiers: Hypertension type: essential hypertension Qualified Code(s): I10 - Essential (primary) hypertension Is this a current diagnosis for this admission?: Yes (7) Morbid obesity Qualifiers: Obesity type: unspecified obesity type Qualified Code(s): E66.01 - Morbid (severe) obesity due to excess calories Is this a current diagnosis for this admission?: Yes - Notes Notes: CHF: Most likely acute on chronic. Continue IV diuretics and other supportive care. Patient to have nutritional consult for low sodium diet and salt and fluid restriction. Acute on chronic respiratory failure with hypoxemia: Patient was noted to have low O2 sat yesterday at 85%. Will obtain a arterial blood gas. Ambulatory dysfunction: Patient will benefit from physical therapy. Anemia: Lab work has been obtained to evaluate this. COPD: Continue bronchodilator and other supportive care. Hypertension: Blood pressure under reasonable control. Morbid obesity: Patient has been advised to lose weight. Sleep apnea syndrome: Patient claims to have been tested for sleep apnea and is awaiting CPAP machine. - Time Time with patient: Greater than 35 minutes - CODE STATUS was discussed, patient remains full code. Surrogate decision-maker patient's sister. Multiple medical problems were addressed.More than 50% of the time spent coordinating care, discussing management plans with involved caregivers. Management plans discussed with involved personnels. Medical decision making was of moderate to high complexity, patient's has multiple severe comorbidities. Medications reviewed and adjusted accordingly: Yes
[2016-12-09] MEDS ORDERED: SPIRONOLACTONE 25 MG TABLET PO ONE (12:15)
[2016-12-09] MEDS: FLUTICASONE/SALMETEROL DISKUS 250-50 MCG/DOSE IH SCH ×2 (13:56→21:43)
[2016-12-09 15:02] LABS: ARTERIAL BLOOD BASE EXCESS 5.4 mmol/L; ARTERIAL BLOOD O2 SATURATION 91.4 % (94-98)
[2016-12-09] MEDS: MONTELUKAST SODIUM 10 MG TABLET PO SCH (21:40)
[2016-12-10] MEDS: CEFAZOLIN 1 GM/D5W RTU 1 GM/50 ML RTUPB IV SCH ×3 (05:50→18:00)
[2016-12-10] MEDS: LANSOPRAZOLE 15 MG TAB.RAP.DR PO SCH (05:51)
[2016-12-10] MEDS: FUROSEMIDE INJ/PF 40 MG/4 ML SDV IV SCH ×2 (05:52→17:45)
[2016-12-10] MEDS: HEPARIN SOD (PORCINE) 5,000 UNIT/ML 1 ML SYRINGE SUBCUT SCH ×3 (06:35→22:15)
[2016-12-10 07:29] LABS: ABSOLUTE EOSINOPHILS # (AUTO) 0.3 10^3/uL (0.0-0.6); ABSOLUTE LYMPHOCYTES (AUTO) 0.9 10^3/uL (0.5-4.7); ABSOLUTE MONOCYTES (AUTO) 0.4 10^3/uL (0.1-1.4); EOSINOPHILS % (AUTO) 5.8 % (0-6); HEMATOCRIT 28.6 % (36.0-47.0); HEMOGLOBIN 9.1 g/dL (12.0-15.5); HGB HCT DIFFERENCE -1.3; LYMPHOCYTES % (AUTO) 18.9 % (13-45); MEAN CORPUSCULAR HEMOGLOBIN 27.6 pg (27.0-33.4); MEAN CORPUSCULAR HGB CONC 31.8 g/dL (32.0-36.0); MEAN CORPUSCULAR VOLUME 87 fl (80-97); MONOCYTES % (AUTO) 8.7 % (3-13); RED CELL DISTRIBUTION WIDTH 16.6 % (11.5-14.0); SEGMENTED NEUTROPHILS % (AUTO) 65.6 % (42-78); WHITE BLOOD COUNT 4.6 10^3/uL (4.0-10.5)
[2016-12-10 07:51] LABS: ANION GAP 8 (5-19); BLOOD UREA NITROGEN 29 mg/dL (7-20); CALCIUM 7.9 mg/dL (8.4-10.2); CARBON DIOXIDE 37 mmol/L (22-30); CHLORIDE 99 mmol/L (98-107); CREATININE RESULT 1.07 mg/dL (0.52-1.25); GLUCOSE 100 mg/dL (75-110); POTASSIUM 4.2 mmol/L (3.6-5.0); SODIUM 144.1 mmol/L (137-145)
[2016-12-10] MEDS: CARVEDILOL 3.125 MG TABLET PO SCH ×2 (08:55→22:15)
[2016-12-10] MEDS: CITALOPRAM HYDROBROMIDE 20 MG TABLET PO SCH (08:55)
[2016-12-10] MEDS: ASPIRIN 81 MG TABLET, ENT COATED PO SCH (08:55)
[2016-12-10] MEDS: IRON POLYSACCHARIDES COMPLEX 150 MG CAPSULE PO SCH (08:57)
[2016-12-10] MEDS: OXYBUTYNIN CHLORIDE 5 MG TABLET PO SCH ×2 (08:57→22:15)
[2016-12-10] MEDS: FLUTICASONE/SALMETEROL DISKUS 250-50 MCG/DOSE IH SCH ×2 (08:59→22:16)
[2016-12-10] MEDS: BENAZEPRIL HCL 10 MG TABLET PO SCH (09:01)
[2016-12-10] MEDS: SPIRONOLACTONE 25 MG TABLET PO SCH (09:07)
--- NOTE | 2016-12-10 15:34 | PDOC PROGRESS REPORT ---
Subjective Progress Note for:: 12/10/16 Subjective:: Patient seen on morning rounds. She is presently resting comfortably in bed. She denies any chest pain, shortness of breath, or dyspnea. She denies any nausea, vomiting, abdominal pain. She states her breathing does feel improved from that she came in. She has been diuresing well. She states she did walk with physical therapy yesterday. She denies any arthralgias or significant myalgias at present time. I discussed physical therapy's recommendation for her to go to rehabilitation. She is agreeable for short-term. Physical Exam Vital Signs: Temp Pulse Resp BP Pulse Ox 98.6 F 66 16 115/33 L 94 12/10/16 12:10 12/10/16 15:17 12/10/16 15:17 12/10/16 12:10 12/10/16 15:17 Intake & Output 12/09/16 12/10/16 12/11/16 06:59 06:59 06:59 Intake Total 368 1450 240 Output Total 4050 2400 Balance 368 -2600 -2160 Weight 139.2 kg 136.5 kg General appearance: PRESENT: no acute distress, morbidly obese, well-developed, well-nourished Head exam: PRESENT: atraumatic, normocephalic Eye exam: PRESENT: conjunctiva pink, EOMI, PERRLA. ABSENT: scleral icterus Ear exam: PRESENT: normal external ear exam Mouth exam: PRESENT: moist, tongue midline Neck exam: ABSENT: carotid bruit, JVD, lymphadenopathy, thyromegaly Respiratory exam: PRESENT: clear to auscultation dena. ABSENT: rales, rhonchi, wheezes Cardiovascular exam: PRESENT: RRR. ABSENT: diastolic murmur, rubs, systolic murmur Pulses: PRESENT: normal dorsalis pedis pul Vascular exam: PRESENT: normal capillary refill GI/Abdominal exam: PRESENT: normal bowel sounds, soft. ABSENT: distended, guarding, mass, organolmegaly, rebound, tenderness Rectal exam: PRESENT: deferred Extremities exam: PRESENT: full ROM. ABSENT: calf tenderness, clubbing, pedal edema Neurological exam: PRESENT: alert, awake, oriented to person, oriented to place , oriented to time, oriented to situation, CN II-XII grossly intact. ABSENT: motor sensory deficit Psychiatric exam: PRESENT: appropriate affect, normal mood. ABSENT: homicidal ideation, suicidal ideation Skin exam: PRESENT: dry, intact, warm. ABSENT: cyanosis, rash Results Laboratory Results: 12/10/16 06:20 12/10/16 06:20 12/09/16 12/10/16 12/10/16 04:50 06:20 06:20 WBC 4.6 RBC 3.30 L Hgb 9.1 L Hct 28.6 L MCV 87 MCH 27.6 MCHC 31.8 L RDW 16.6 H Plt Count 180 Seg Neutrophils % 65.6 Lymphocytes % 18.9 Monocytes % 8.7 Eosinophils % 5.8 Basophils % 1.0 Absolute Neutrophils 3.0 Absolute Lymphocytes 0.9 Absolute Monocytes 0.4 Absolute Eosinophils 0.3 Absolute Basophils 0.0 Sodium 144.1 Potassium 4.2 Chloride 99 Carbon Dioxide 37 H Anion Gap 8 BUN 29 H Creatinine 1.07 Est GFR ( Amer) > 60 Est GFR (Non-Af Amer) 50 L Glucose 100 Calcium 7.9 L Transferrin 214 12/08/16 18:45 NT-Pro-B Natriuret Pep 1830 H Impressions: Chest X-Ray 12/08/16 17:58 IMPRESSION: Cardiomegaly. Linear atelectasis. Mild vascular prominence. Assessment & Plan - Diagnosis (1) Acute on chronic respiratory failure with hypoxemia Is this a current diagnosis for this admission?: YesPlan: Improving with diuresis. (2) Acute diastolic CHF (congestive heart failure) Is this a current diagnosis for this admission?: YesPlan: Continue diuresis, blood pressure is improved. (3) COPD (chronic obstructive pulmonary disease) Qualifiers: Emphysema type: unspecified Is this a current diagnosis for this admission?: YesPlan: Continue nebulizers and inhalers. (4) Left leg cellulitis Is this a current diagnosis for this admission?: YesPlan: Erythema is almost resolved, leukocytosis improved with antibiotics. (5) Hypertension Qualifiers: Hypertension type: essential hypertension Qualified Code(s): I10 - Essential (primary) hypertension Is this a current diagnosis for this admission?: YesPlan: Presently normotensive on current medications. (6) Moderate to severe pulmonary hypertension Is this a current diagnosis for this admission?: YesPlan: Cardiology is following most likely partially due to obstructive sleep apnea (7) Ambulatory dysfunction Is this a current diagnosis for this admission?: YesPlan: Physical therapy has been consulted. Discussed patient's need to increase activity with her and nurse (8) Anemia Qualifiers: Anemia type: iron deficiency Is this a current diagnosis for this admission?: YesPlan: Presently stable. - Time Time Spent with patient: 25-34 minutes Critical Time spent with patient: 15-24 minutes Medications reviewed and adjusted accordingly: Yes Anticipated discharge: Acute Rehab
--- NOTE | 2016-12-10 20:17 | PDOC PROGRESS REPORT ---
Subjective Progress Note for:: 12/10/16 Subjective:: Patient was admitted directly from my office. She was noted to be in CHF, severely hypoxemic with O2 sat at around 85%, with increasing pedal edema and shortness of breath. Today, Patient seems to be doing better with gradual improvement. Pt is denying any chest arm or neck discomfort. Patient denying any PND, orthopnea. Patient denied any sustained palpitations, dizziness, syncope, near syncope. Patient denying any fever chills. Patient denying any other significant discomfort. Today she is feeling significantly better. She has a Santiago catheter with good urine output. Her pedal edema and dyspnea has improved. Patient is maintaining sinus rhythm. Review of systems: Rest review of systems negative. Medications: Medications have been reviewed. Physical Exam Vital Signs: Temp Pulse Resp BP Pulse Ox 98.3 F 63 23 H 123/58 L 95 12/10/16 16:42 12/10/16 16:42 12/10/16 16:42 12/10/16 16:42 12/10/16 16:42 Intake & Output 12/09/16 12/10/16 12/11/16 06:59 06:59 06:59 Intake Total 368 1450 810 Output Total 4050 3200 Balance 368 -2600 -2390 Weight 139.2 kg 136.5 kg Exam: GENERAL: well-nourished and in no acute distress. Alert and oriented x3 HEAD: Atraumatic, normocephalic. EYES: Pupils equal round and reactive to light, extraocular movements intact, sclera anicteric, conjunctiva are normal. ENT: TMs normal, nares patent, oropharynx clear without exudates. Moist mucous membranes. No oral ulcerations or bleeding gums noted NECK: supple without lymphadenopathy. Trachea is central. No cervical or axillary lymphadenopathy noted. Carotids are 2+, JVD 10 CM LUNGS: Respiration seems nonlabored, no significant accessory muscle action noted. Breath sounds clear to auscultation bilaterally and equal noted. No wheezes rales or rhonchi noted. No significant dullness noted on percussion. CHEST: Palpation of the chest wall shows no significant chest wall tenderness. No other significant abnormalities noted. 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 ABDOMEN: Soft, no significant tenderness appreciated, normoactive bowel sounds. No guarding, no rebound. No rigidity noted . No masses appreciated. EXTREMITIES: Pedal pulses are 1-2+, no calf tenderness noted. No clubbing or cyanosis.2-3+ + pedal edema noted NEUROLOGICAL: Focused neurological exam showed no significant neurologic deficit. Normal speech, no focal weakness appreciated. PSYCH: Normal mood, normal affect. Judgment and insight within normal limits. SKIN: No significant ecchymosis, rash, a very superficial open wound is noted on the left foot dorsum. MUSCULOSKELETAL EXAM: No significant joint swelling noted. Results Laboratory Results: 12/10/16 06:20 12/10/16 06:20 12/09/16 12/10/16 12/10/16 04:50 06:20 06:20 WBC 4.6 RBC 3.30 L Hgb 9.1 L Hct 28.6 L MCV 87 MCH 27.6 MCHC 31.8 L RDW 16.6 H Plt Count 180 Seg Neutrophils % 65.6 Lymphocytes % 18.9 Monocytes % 8.7 Eosinophils % 5.8 Basophils % 1.0 Absolute Neutrophils 3.0 Absolute Lymphocytes 0.9 Absolute Monocytes 0.4 Absolute Eosinophils 0.3 Absolute Basophils 0.0 Sodium 144.1 Potassium 4.2 Chloride 99 Carbon Dioxide 37 H Anion Gap 8 BUN 29 H Creatinine 1.07 Est GFR ( Amer) > 60 Est GFR (Non-Af Amer) 50 L Glucose 100 Calcium 7.9 L Transferrin 214 12/08/16 18:45 NT-Pro-B Natriuret Pep 1830 H Impressions: Chest X-Ray 12/08/16 17:58 IMPRESSION: Cardiomegaly. Linear atelectasis. Mild vascular prominence. Assessment & Plan - Diagnosis (1) Acute diastolic CHF (congestive heart failure) Is this a current diagnosis for this admission?: Yes (2) Acute on chronic respiratory failure with hypoxemia Is this a current diagnosis for this admission?: Yes (3) Ambulatory dysfunction Is this a current diagnosis for this admission?: Yes (4) Anemia Qualifiers: Anemia type: iron deficiency Iron deficiency anemia type: inadequate dietary iron intake Qualified Code(s): D50.8 - Other iron deficiency anemias Is this a current diagnosis for this admission?: Yes (5) COPD (chronic obstructive pulmonary disease) Qualifiers: Emphysema type: unspecified Is this a current diagnosis for this admission?: Yes (6) Hypertension Qualifiers: Hypertension type: essential hypertension Qualified Code(s): I10 - Essential (primary) hypertension Is this a current diagnosis for this admission?: Yes (7) Morbid obesity Qualifiers: Obesity type: unspecified obesity type Qualified Code(s): E66.01 - Morbid (severe) obesity due to excess calories Is this a current diagnosis for this admission?: Yes - Notes Notes: CHF: Most likely acute on chronic. Continue IV diuretics and other supportive care. Patient to have nutritional consult for low sodium diet and salt and fluid restriction. Patient was placed on intermittent pneumatic compression which she claims she tolerated well. Acute on chronic respiratory failure with hypoxemia: Patient was noted to have low O2 sat yesterday at 85%. Arterial blood gases shows hypoxemic and hypercarbic chronic respiratory failure with acute exacerbation. Ambulatory dysfunction: Patient will benefit from physical therapy. This is being arranged. Patient been considered for short-term rehabilitation. Anemia: Lab work has been obtained to evaluate this. Serum iron has come back low. Patient has gastric bypass surgery therefore will need intravenous or parenteral iron therapy. Will consult hematology. COPD: Continue bronchodilator and other supportive care. Hypertension: Blood pressure under reasonable control. Morbid obesity: Patient has been advised to lose weight. Sleep apnea syndrome: Patient claims to have been tested for sleep apnea and is awaiting CPAP machine. Will start bilevel therapy while she is at the hospital. - Time Time with patient: Greater than 35 minutes - CODE STATUS was discussed, patient remains full code. Surrogate decision-maker unchanged. Multiple medical problems were addressed.More than 50% of the time spent coordinating care, discussing management plans with involved caregivers. Management plans discussed with involved personnels. Medical decision making was of moderate to high complexity, patient's has multiple severe comorbidities. Medications reviewed and adjusted accordingly: Yes
[2016-12-10] MEDS: MONTELUKAST SODIUM 10 MG TABLET PO SCH (22:15)
[2016-12-11] MEDS: CEFAZOLIN 1 GM/D5W RTU 1 GM/50 ML RTUPB IV SCH ×5 (00:40→23:21)
[2016-12-11] MEDS: LANSOPRAZOLE 15 MG TAB.RAP.DR PO SCH (05:12)
[2016-12-11] MEDS: FUROSEMIDE INJ/PF 40 MG/4 ML SDV IV SCH (05:16)
[2016-12-11] MEDS: HEPARIN SOD (PORCINE) 5,000 UNIT/ML 1 ML SYRINGE SUBCUT SCH ×3 (05:16→22:23)
[2016-12-11 08:37] LABS: BLOOD UREA NITROGEN 27 mg/dL (7-20); CALCIUM 8.1 mg/dL (8.4-10.2); CHLORIDE 92 mmol/L (98-107); CREATININE RESULT 0.97 mg/dL (0.52-1.25); GLUCOSE 125 mg/dL (75-110); MAGNESIUM 1.7 mg/dL (1.6-2.3); POTASSIUM 4.1 mmol/L (3.6-5.0); SODIUM 143.1 mmol/L (137-145)
[2016-12-11] MEDS ORDERED: HYDROXYZINE HCL 10 MG TABLET PO PRN (08:48)
[2016-12-11 08:52] LABS: ANION GAP 8 (5-19)
[2016-12-11 08:53] LABS: CARBON DIOXIDE 43 mmol/L (22-30)
--- NOTE | 2016-12-11 09:03 | PDOC PROGRESS REPORT ---
Subjective Progress Note for:: 12/11/16 Subjective:: Patient seen on morning rounds. She is presently resting comfortably in bed. She denies any chest pain, shortness of breath, or dyspnea. She denies any nausea, vomiting, abdominal pain. She states her breathing does feel improved from that she came in. She has been diuresing well. She states she did not get out of bed yesterday. She states her back is itchy from sweat She denies any arthralgias or significant myalgias at present time. I discussed physical therapy's recommendation for her to go to rehabilitation. She is agreeable for short-term rehab. Physical Exam Vital Signs: Temp Pulse Resp BP Pulse Ox 98.0 F 58 L 16 126/59 H 94 12/11/16 08:14 12/11/16 08:14 12/11/16 08:14 12/11/16 08:14 12/11/16 08:14 Intake & Output 12/10/16 12/11/16 12/12/16 06:59 06:59 06:59 Intake Total 1450 970 Output Total 4050 7600 Balance -2600 -6630 Weight 136.5 kg 136.6 kg General appearance: PRESENT: no acute distress, morbidly obese, well-developed, well-nourished Head exam: PRESENT: atraumatic, normocephalic Eye exam: PRESENT: conjunctiva pink, EOMI, PERRLA. ABSENT: scleral icterus Ear exam: PRESENT: normal external ear exam Mouth exam: PRESENT: moist, tongue midline Neck exam: ABSENT: carotid bruit, JVD, lymphadenopathy, thyromegaly Respiratory exam: PRESENT: crackles, symmetrical, unlabored. ABSENT: rales, rhonchi, wheezes Cardiovascular exam: PRESENT: RRR. ABSENT: diastolic murmur, rubs, systolic murmur Pulses: PRESENT: normal dorsalis pedis pul Vascular exam: PRESENT: normal capillary refill GI/Abdominal exam: PRESENT: normal bowel sounds, soft Rectal exam: PRESENT: deferred Gentrourinary exam: PRESENT: other - 2 cm area if erthyema on dorsum of left foot, left lower extremity redness improved Extremities exam: PRESENT: full ROM Musculoskeletal exam: PRESENT: ambulatory, full ROM, tenderness Neurological exam: PRESENT: alert, awake, oriented to person, oriented to place , oriented to time, oriented to situation, CN II-XII grossly intact. ABSENT: motor sensory deficit Psychiatric exam: PRESENT: appropriate affect, normal mood. ABSENT: homicidal ideation, suicidal ideation Skin exam: PRESENT: erythema - dorsum of left foot, resolving on anterior left lower leg Results Laboratory Results: 12/10/16 06:20 12/11/16 08:08 12/09/16 12/11/16 12/11/16 04:50 04:24 08:08 Sodium Cancelled 143.1 Potassium Cancelled 4.1 Chloride Cancelled 92 L Carbon Dioxide Cancelled 43 H* Anion Gap Cancelled 8 BUN Cancelled 27 H Creatinine Cancelled 0.97 Est GFR ( Amer) Cancelled > 60 Est GFR (Non-Af Amer) Cancelled 56 L Glucose Cancelled 125 H Calcium Cancelled 8.1 L Magnesium Cancelled 1.7 Transferrin 214 12/08/16 18:45 NT-Pro-B Natriuret Pep 1830 H Impressions: Chest X-Ray 12/08/16 17:58 IMPRESSION: Cardiomegaly. Linear atelectasis. Mild vascular prominence. Assessment & Plan - Diagnosis (1) Acute on chronic respiratory failure with hypoxemia Is this a current diagnosis for this admission?: YesPlan: Improving with diuresis.. Will decrease lasix to daily. (2) Acute diastolic CHF (congestive heart failure) Is this a current diagnosis for this admission?: YesPlan: Continue diuresis, blood pressure is improved. (3) COPD (chronic obstructive pulmonary disease) Qualifiers: Emphysema type: unspecified Is this a current diagnosis for this admission?: YesPlan: Continue nebulizers and inhalers. (4) Left leg cellulitis Is this a current diagnosis for this admission?: YesPlan: Erythema is almost resolved, leukocytosis improved with antibiotics. (5) Hypertension Qualifiers: Hypertension type: essential hypertension Qualified Code(s): I10 - Essential (primary) hypertension Is this a current diagnosis for this admission?: YesPlan: Presently normotensive on current medications. (6) Moderate to severe pulmonary hypertension Is this a current diagnosis for this admission?: YesPlan: Cardiology is following most likely partially due to obstructive sleep apnea (7) Ambulatory dysfunction Is this a current diagnosis for this admission?: YesPlan: Physical therapy has been consulted. Discussed patient's need to increase activity with her and nurse (8) Anemia Qualifiers: Anemia type: iron deficiency Is this a current diagnosis for this admission?: YesPlan: Presently stable. (9) Morbid (severe) obesity due to excess calories Is this a current diagnosis for this admission?: YesPlan: Increase activity, calorie reduction - Time Time Spent with patient: 25-34 minutes Critical Time spent with patient: 15-24 minutes Medications reviewed and adjusted accordingly: Yes Anticipated discharge: Acute Rehab
[2016-12-11] MEDS: IRON POLYSACCHARIDES COMPLEX 150 MG CAPSULE PO SCH (09:50)
[2016-12-11] MEDS: OXYBUTYNIN CHLORIDE 5 MG TABLET PO SCH ×2 (09:50→22:23)
[2016-12-11] MEDS: BENAZEPRIL HCL 10 MG TABLET PO SCH (09:50)
[2016-12-11] MEDS: CITALOPRAM HYDROBROMIDE 20 MG TABLET PO SCH (09:51)
[2016-12-11] MEDS: ASPIRIN 81 MG TABLET, ENT COATED PO SCH (09:51)
[2016-12-11] MEDS: SPIRONOLACTONE 25 MG TABLET PO SCH (09:51)
[2016-12-11] MEDS: CARVEDILOL 3.125 MG TABLET PO SCH ×2 (09:51→22:23)
[2016-12-11] MEDS ORDERED: FUROSEMIDE INJ/PF 40 MG/4 ML SDV IV SCH (10:00)
[2016-12-11] MEDS: FLUTICASONE/SALMETEROL DISKUS 250-50 MCG/DOSE IH SCH ×2 (10:48→22:23)
[2016-12-11] MEDS: MUPIROCIN CALCIUM 2% CREAM 15 GM TP SCH ×2 (10:48→17:11)
--- NOTE | 2016-12-11 11:22 | PDOC CONSULTATION ---
Consultation Consult Date: 12/11/16 Attending physician:: BUCK MURGUIA Consult reason:: Asked by cardiology to see patient with gastric bypass with iron deficiency anemia and B12 deficiency anemia History of Present Illness Admission Date/PCP: 12/08/16 17:56 YARELIS MARTINEZ Patient complains of: Fatigue, shortness of breath History of Present Illness: 71-year-old female with multiple medical problems, who is here with CHF exacerbation, also with known history of gastric bypass with hemoglobin in the 8 -9 range recently. She recently had iron studies, this indicated iron saturation unable to be calculated, and ferritin of 24, B12 was in the low 200 range. She is here with shortness of breath, fatigue, weakness is on and off BiPAP recently, and is being diuresed aggressively by cardiology. Past Medical History Cardiac Medical History: Reports: Congestive Heart Failure - 2/4 LVDD, normal EF , Hyperlipidema, Hypertension, Other - Severe pulmonary hypertension Denies: Coronary Artery Disease, Myocardial Infarction Pulmonary Medical History: Reports: Asthma, Chronic Obstructive Pulmonary Disease (COPD) - Home oxygen dependent 3.5 L nasal cannula, Pneumonia Denies: Bronchitis Neurological Medical History: Denies: Seizures Endocrine Medical History: Denies: Diabetes Mellitus Type 1, Diabetes Mellitus Type 2 Musculoskeltal Medical History: Reports: Arthritis Hematology: Reports: Anemia - 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 Past Surgical History Past Surgical History: Reports: Cholecystectomy, Gastric Bypass Surgery, Hysterectomy, Other - Reduction mammoplasty Social History Lives with: Family Smoking Status: Never Smoker Frequency of Alcohol Use: None Hx Recreational Drug Use: No Hx Prescription Drug Abuse: No - Advance Directive Resuscitation Status: Full Code Family History Family History: CAD, DM Parental Family History Reviewed: Yes Children Family History Reviewed: Yes Sibling(s) Family History Reviewed.: Yes Medication/Allergy Home Medications: Albuterol Sulfate [Ventolin 0.083% Neb 2.5 mg/3 mL Ampul] 2.5 mg NEB RTQ6HP PRN 12/08/16 Albuterol Sulfate [Ventolin HFA MDI 18 GM] 2 puff IH Q6HP PRN 12/08/16 Benazepril HCl [Lotensin 10 mg Tablet] 10 mg PO DAILY 12/08/16 Citalopram Hydrobromide [Celexa 20 mg Tablet] 20 mg PO DAILY 12/08/16 Fluticasone/Salmeterol [Advair 250-50 Diskus 28 dose] 1 puff IH Q12 12/08/16 Furosemide [Lasix] 20 mg PO DAILY 12/08/16 Montelukast Sodium [Singulair 10 mg Tablet] 10 mg PO DAILY 12/08/16 Omeprazole 20 mg PO DAILY 12/08/16 Oxybutynin Chloride [Ditropan 5 mg Tablet] 5 mg PO Q12 12/08/16 Allergies/Adverse Reactions: codeine [Codeine] Allergy (Verified 11/18/15 23:21) demeclocycline HCl [From Declomycin] Allergy (Verified 12/23/15 09:58) oxaprozin [From Daypro] Allergy (Verified 12/23/15 09:58) Review of Systems Constitutional: PRESENT: fatigue, weakness Cardiovascular: PRESENT: dyspnea on exertion, edema, orthropnea Respiratory: PRESENT: dyspnea Gastrointestinal: ABSENT: abdominal pain, constipation, diarrhea, hematemesis, hematochezia, nausea, vomiting Integumentary: ABSENT: rash, wounds Neurological: ABSENT: abnormal gait, abnormal speech, confusion, dizziness, focal weakness, syncope Endocrine: ABSENT: cold intolerance, heat intolerance, polydipsia, polyuria Physical Exam Vital Signs: Temp Pulse Resp BP Pulse Ox 98.0 F 58 L 16 126/59 H 94 12/11/16 08:14 12/11/16 08:14 12/11/16 08:14 12/11/16 08:14 12/11/16 08:14 Intake & Output 12/10/16 12/11/16 12/12/16 06:59 06:59 06:59 Intake Total 1450 970 Output Total 4050 7600 Balance -2600 -0728 Weight 136.5 kg 136.6 kg General appearance: PRESENT: no acute distress, well-developed, well-nourished Head exam: PRESENT: atraumatic, normocephalic Eye exam: PRESENT: conjunctiva pink, EOMI, PERRLA. ABSENT: scleral icterus Ear exam: PRESENT: normal external ear exam Mouth exam: PRESENT: moist, tongue midline Neck exam: ABSENT: carotid bruit, JVD, lymphadenopathy, thyromegaly Respiratory exam: PRESENT: clear to auscultation dena. ABSENT: rales, rhonchi, wheezes Cardiovascular exam: PRESENT: RRR. ABSENT: diastolic murmur, rubs, systolic murmur Pulses: PRESENT: normal dorsalis pedis pul Vascular exam: PRESENT: normal capillary refill GI/Abdominal exam: PRESENT: normal bowel sounds, soft. ABSENT: distended, guarding, mass, organolmegaly, rebound, tenderness Rectal exam: PRESENT: deferred Extremities exam: PRESENT: full ROM. ABSENT: calf tenderness, clubbing, pedal edema Neurological exam: PRESENT: alert, awake, oriented to person, oriented to place , oriented to time, oriented to situation, CN II-XII grossly intact. ABSENT: motor sensory deficit Psychiatric exam: PRESENT: appropriate affect, normal mood. ABSENT: homicidal ideation, suicidal ideation Skin exam: PRESENT: dry, intact, warm. ABSENT: cyanosis, rash Results Laboratory Results: 12/10/16 06:20 12/11/16 08:08 12/11/16 12/11/16 04:24 08:08 Sodium Cancelled 143.1 Potassium Cancelled 4.1 Chloride Cancelled 92 L Carbon Dioxide Cancelled 43 H* Anion Gap Cancelled 8 BUN Cancelled 27 H Creatinine Cancelled 0.97 Est GFR ( Amer) Cancelled > 60 Est GFR (Non-Af Amer) Cancelled 56 L Glucose Cancelled 125 H Calcium Cancelled 8.1 L Magnesium Cancelled 1.7 12/08/16 18:45 NT-Pro-B Natriuret Pep 1830 H Impressions: Chest X-Ray 12/08/16 17:58 IMPRESSION: Cardiomegaly. Linear atelectasis. Mild vascular prominence. Assessment & Plan - Diagnosis (1) Anemia Qualifiers: Anemia type: iron deficiency Iron deficiency anemia type: inadequate dietary iron intake Qualified Code(s): D50.8 - Other iron deficiency anemias Is this a current diagnosis for this admission?: YesPlan: Iron deficiency anemia secondary to poor oral absorption, B12 deficiency anemias well, severe anemia, we will plan on giving IV iron today as well as IM B12 supplementation. We will also set her up as an outpatient for continued follow-up and close monitoring of her iron and B12 levels treatment accordingly there. - Time Time Spent: 50 to 70 Minutes Critical Time spent with patient: 25-34 minutes
--- NOTE | 2016-12-11 12:09 | PDOC PROGRESS REPORT ---
Subjective Progress Note for:: 12/11/16 Subjective:: Patient seems to be doing better with gradual improvement. Pt is denying any chest arm or neck discomfort. Patient denying any PND, orthopnea. Patient denied any sustained palpitations, dizziness, syncope, near syncope. Patient denying any fever chills. Patient denying any other significant discomfort. Today she is feeling significantly better. She has a Santiago catheter with good urine output. Her pedal edema and dyspnea has improved. Patient is maintaining sinus rhythm. Review of systems: Rest review of systems negative. Medications: Medications have been reviewed. Physical Exam Vital Signs: Temp Pulse Resp BP Pulse Ox 98.0 F 58 L 16 126/59 H 94 12/11/16 08:14 12/11/16 08:14 12/11/16 08:14 12/11/16 08:14 12/11/16 08:14 Intake & Output 12/10/16 12/11/16 12/12/16 06:59 06:59 06:59 Intake Total 1450 970 Output Total 4050 7600 Balance -2600 -6630 Weight 136.5 kg 136.6 kg Exam: GENERAL: well-nourished and in no acute distress. Alert and oriented x3 HEAD: Atraumatic, normocephalic. EYES: Pupils equal round and reactive to light, extraocular movements intact, sclera anicteric, conjunctiva are normal. ENT: TMs normal, nares patent, oropharynx clear without exudates. Moist mucous membranes. No oral ulcerations or bleeding gums noted NECK: supple without lymphadenopathy. Trachea is central. No cervical or axillary lymphadenopathy noted. Carotids are 2+, JVD WNL LUNGS: Respiration seems nonlabored, no significant accessory muscle action noted. Breath sounds clear to auscultation bilaterally and equal noted. No wheezes rales or rhonchi noted. No significant dullness noted on percussion. CHEST: Palpation of the chest wall shows no significant chest wall tenderness. No other significant abnormalities noted. HEART: [place] SUBSORTER, No PSH, 1/6 SONDRA aortic area, 1/6 mccray systolic murmur mitral area, no rubs, no gallops. ABDOMEN: Soft, no significant tenderness appreciated, normoactive bowel sounds. No guarding, no rebound. No rigidity noted . No masses appreciated. EXTREMITIES: Pedal pulses are 1-2+, no calf tenderness noted. No clubbing or cyanosis.1+ pedal edema noted NEUROLOGICAL: Focused neurological exam showed no significant neurologic deficit. Normal speech, no focal weakness appreciated. PSYCH: Normal mood, normal affect. Judgment and insight within normal limits. SKIN: No significant ecchymosis, rash, superficial ulceration noted left foot dorsum but no signs of pruritus noted. MUSCULOSKELETAL EXAM: No significant joint swelling noted. Results Laboratory Results: 12/10/16 06:20 12/11/16 08:08 12/11/16 12/11/16 04:24 08:08 Sodium Cancelled 143.1 Potassium Cancelled 4.1 Chloride Cancelled 92 L Carbon Dioxide Cancelled 43 H* Anion Gap Cancelled 8 BUN Cancelled 27 H Creatinine Cancelled 0.97 Est GFR ( Amer) Cancelled > 60 Est GFR (Non-Af Amer) Cancelled 56 L Glucose Cancelled 125 H Calcium Cancelled 8.1 L Magnesium Cancelled 1.7 12/08/16 18:45 NT-Pro-B Natriuret Pep 1830 H Impressions: Chest X-Ray 12/08/16 17:58 IMPRESSION: Cardiomegaly. Linear atelectasis. Mild vascular prominence. Assessment & Plan - Diagnosis (1) Acute diastolic CHF (congestive heart failure) Is this a current diagnosis for this admission?: Yes (2) Acute on chronic respiratory failure with hypoxemia Is this a current diagnosis for this admission?: Yes (3) Ambulatory dysfunction Is this a current diagnosis for this admission?: Yes (4) Anemia Qualifiers: Anemia type: iron deficiency Iron deficiency anemia type: inadequate dietary iron intake Qualified Code(s): D50.8 - Other iron deficiency anemias Is this a current diagnosis for this admission?: Yes (5) COPD (chronic obstructive pulmonary disease) Qualifiers: Emphysema type: unspecified Is this a current diagnosis for this admission?: Yes (6) Hypertension Qualifiers: Hypertension type: essential hypertension Qualified Code(s): I10 - Essential (primary) hypertension Is this a current diagnosis for this admission?: Yes (7) Morbid obesity Qualifiers: Obesity type: unspecified obesity type Qualified Code(s): E66.01 - Morbid (severe) obesity due to excess calories Is this a current diagnosis for this admission?: Yes - Notes Notes: CHF: Most likely acute on chronic. Patient pedal edema has improved. Patient being placed on oral Demadex 20 mg by mouth daily. Patient to have nutritional consult for low sodium diet and salt and fluid restriction. Patient was placed on intermittent pneumatic compression which she claims she tolerated well. Acute on chronic respiratory failure with hypoxemia: Possibly related to CHF and obesity hypoventilation syndrome. Arterial blood gases shows hypoxemic and hypercarbic chronic respiratory failure with acute exacerbation. Continue to monitor oxygen saturations. Ambulatory dysfunction: Patient will benefit from physical therapy. This is being arranged. Patient been considered for short-term rehabilitation. Anemia: Lab work has been obtained to evaluate this. Serum iron has come back low. Patient has gastric bypass surgery therefore will need intravenous or parenteral iron therapy. Will consult hematology. COPD: Continue bronchodilator and other supportive care. Hypertension: Blood pressure under reasonable control. Morbid obesity: Patient has been advised to lose weight. Sleep apnea syndrome: Patient claims to have been tested for sleep apnea. Will start bilevel therapy while she is at the hospital. - Time Time with patient: Greater than 35 minutes - CODE STATUS was discussed, patient remains full code. Surrogate decision-maker patient's sister by the name of Yessenia Condon. Multiple medical problems were addressed.More than 50% of the time spent coordinating care, discussing management plans with involved caregivers. Management plans discussed with involved personnels. Medical decision making was of moderate complexity, patient's has multiple severe comorbidities. Medications reviewed and adjusted accordingly: Yes
[2016-12-11] MEDS ORDERED: FERUMOXYTOL (NON-ESRD) 510 MG/NS 100 ML IV ONE ×2 (14:00)
[2016-12-11] MEDS: CYANOCOBALAMIN (VITAMIN B-12) INJ 1000 MCG/1 ML VIAL IM SCH (14:17)
[2016-12-11] MEDS: TORSEMIDE 20 MG TABLET PO SCH (14:18)
[2016-12-11] MEDS: MONTELUKAST SODIUM 10 MG TABLET PO SCH (22:23)
[2016-12-12] MEDS: HEPARIN SOD (PORCINE) 5,000 UNIT/ML 1 ML SYRINGE SUBCUT SCH ×3 (05:41→21:50)
[2016-12-12] MEDS: LANSOPRAZOLE 15 MG TAB.RAP.DR PO SCH (05:41)
[2016-12-12] MEDS: CEFAZOLIN 1 GM/D5W RTU 1 GM/50 ML RTUPB IV SCH ×4 (05:41→23:28)
--- NOTE | 2016-12-12 08:48 | PDOC PROGRESS REPORT ---
Subjective Progress Note for:: 12/12/16 Subjective:: Patient seen on morning rounds. She is presently resting comfortably in bed. She denies any chest pain, shortness of breath, or dyspnea. She denies any nausea, vomiting, abdominal pain. She states her breathing does feel improved from that she came in. She has been diuresing well. She states she did not get out of bed yesterday. She denies any arthralgias or significant myalgias at present time. I discussed physical therapy's recommendation for her to go to rehabilitation. She is agreeable for short-term rehab. Physical Exam Vital Signs: Temp Pulse Resp BP Pulse Ox 97.5 F 64 18 111/53 L 99 12/12/16 07:56 12/12/16 07:56 12/12/16 07:56 12/12/16 07:56 12/12/16 07:56 Intake & Output 12/11/16 12/12/16 12/13/16 06:59 06:59 06:59 Intake Total 970 1459 Output Total 7600 0075 Balance -6630 -6536 Weight 136.6 kg 134.7 kg General appearance: PRESENT: no acute distress, morbidly obese, well-developed, well-nourished Head exam: PRESENT: atraumatic, normocephalic Eye exam: PRESENT: conjunctiva pink, EOMI, PERRLA. ABSENT: scleral icterus Ear exam: PRESENT: normal external ear exam Mouth exam: PRESENT: moist, tongue midline Neck exam: ABSENT: carotid bruit, JVD, lymphadenopathy, thyromegaly Respiratory exam: PRESENT: crackles - bibasilar Cardiovascular exam: PRESENT: RRR. ABSENT: diastolic murmur, rubs, systolic murmur Pulses: PRESENT: normal dorsalis pedis pul Vascular exam: PRESENT: normal capillary refill GI/Abdominal exam: PRESENT: normal bowel sounds, soft, tenderness Rectal exam: PRESENT: deferred Extremities exam: PRESENT: full ROM, pedal edema Musculoskeletal exam: PRESENT: ambulatory, full ROM Neurological exam: PRESENT: alert, awake, oriented to person, oriented to place , oriented to time, oriented to situation, CN II-XII grossly intact. ABSENT: motor sensory deficit Psychiatric exam: PRESENT: appropriate affect, normal mood. ABSENT: homicidal ideation, suicidal ideation Skin exam: PRESENT: dry, warm, other - 3 cm wound dorsum of left foot improving , no longer erythemic, cellulitis resolved Results Laboratory Results: 12/10/16 06:20 12/11/16 08:08 12/11/16 08:08 Sodium 143.1 Potassium 4.1 Chloride 92 L Carbon Dioxide 43 H* Anion Gap 8 BUN 27 H Creatinine 0.97 Est GFR ( Amer) > 60 Est GFR (Non-Af Amer) 56 L Glucose 125 H Calcium 8.1 L Magnesium 1.7 12/08/16 18:45 NT-Pro-B Natriuret Pep 1830 H Impressions: Chest X-Ray 12/08/16 17:58 IMPRESSION: Cardiomegaly. Linear atelectasis. Mild vascular prominence. Assessment & Plan - Diagnosis (1) Acute on chronic respiratory failure with hypoxemia Is this a current diagnosis for this admission?: YesPlan: Improving with diuresis.. Will decrease lasix to daily. (2) Acute diastolic CHF (congestive heart failure) Is this a current diagnosis for this admission?: YesPlan: Continue diuresis, blood pressure is improved. (3) COPD (chronic obstructive pulmonary disease) Qualifiers: Emphysema type: unspecified Is this a current diagnosis for this admission?: YesPlan: Continue nebulizers and inhalers. (4) Left leg cellulitis Is this a current diagnosis for this admission?: YesPlan: Erythema is almost resolved, leukocytosis improved with antibiotics. Will d/c IV antibiotics (5) Hypertension Qualifiers: Hypertension type: essential hypertension Qualified Code(s): I10 - Essential (primary) hypertension Is this a current diagnosis for this admission?: YesPlan: Presently normotensive on current medications. (6) Moderate to severe pulmonary hypertension Is this a current diagnosis for this admission?: YesPlan: Cardiology is following most likely partially due to obstructive sleep apnea (7) Ambulatory dysfunction Is this a current diagnosis for this admission?: YesPlan: Physical therapy has been consulted. Discussed patient's need to increase activity with her and nurse (8) Anemia Qualifiers: Anemia type: iron deficiency Iron deficiency anemia type: inadequate dietary iron intake Qualified Code(s): D50.8 - Other iron deficiency anemias Is this a current diagnosis for this admission?: YesPlan: Presently stable. (9) Morbid (severe) obesity due to excess calories Is this a current diagnosis for this admission?: YesPlan: Increase activity, calorie reduction - Time Time Spent with patient: 25-34 minutes Critical Time spent with patient: 15-24 minutes Medications reviewed and adjusted accordingly: Yes Anticipated discharge: Acute Rehab Within: when bed available
[2016-12-12] MEDS: FLUTICASONE/SALMETEROL DISKUS 250-50 MCG/DOSE IH SCH ×2 (10:36→21:51)
[2016-12-12] MEDS: MUPIROCIN CALCIUM 2% CREAM 15 GM TP SCH ×2 (10:36→14:18)
[2016-12-12] MEDS: SPIRONOLACTONE 25 MG TABLET PO SCH (10:37)
[2016-12-12] MEDS: IRON POLYSACCHARIDES COMPLEX 150 MG CAPSULE PO SCH (10:37)
[2016-12-12] MEDS: OXYBUTYNIN CHLORIDE 5 MG TABLET PO SCH ×2 (10:37→21:51)
[2016-12-12] MEDS: CITALOPRAM HYDROBROMIDE 20 MG TABLET PO SCH (10:37)
[2016-12-12] MEDS: CARVEDILOL 3.125 MG TABLET PO SCH ×2 (10:37→21:51)
[2016-12-12] MEDS: ASPIRIN 81 MG TABLET, ENT COATED PO SCH (10:37)
[2016-12-12] MEDS: BENAZEPRIL HCL 10 MG TABLET PO SCH (10:38)
--- NOTE | 2016-12-12 10:43 | PDOC PROGRESS REPORT ---
Subjective Progress Note for:: 12/12/16 Subjective:: Patient feeling much better today, received iron transfusion and B12 shot today and did well with that Physical Exam Vital Signs: Temp Pulse Resp BP Pulse Ox 97.5 F 64 18 111/53 L 99 12/12/16 07:56 12/12/16 07:56 12/12/16 07:56 12/12/16 07:56 12/12/16 07:56 Intake & Output 12/11/16 12/12/16 12/13/16 06:59 06:59 06:59 Intake Total 970 1459 Output Total 7600 0548 Balance -8669 -5333 Weight 136.6 kg 134.7 kg General appearance: PRESENT: no acute distress, well-developed, well-nourished Head exam: PRESENT: atraumatic, normocephalic Eye exam: PRESENT: conjunctiva pink, EOMI, PERRLA. ABSENT: scleral icterus Ear exam: PRESENT: normal external ear exam Mouth exam: PRESENT: moist, tongue midline Neck exam: ABSENT: carotid bruit, JVD, lymphadenopathy, thyromegaly Respiratory exam: PRESENT: clear to auscultation dena. ABSENT: rales, rhonchi, wheezes Cardiovascular exam: PRESENT: RRR. ABSENT: diastolic murmur, rubs, systolic murmur Pulses: PRESENT: normal dorsalis pedis pul Vascular exam: PRESENT: normal capillary refill GI/Abdominal exam: PRESENT: normal bowel sounds, soft. ABSENT: distended, guarding, mass, organolmegaly, rebound, tenderness Rectal exam: PRESENT: deferred Extremities exam: PRESENT: full ROM. ABSENT: calf tenderness, clubbing, pedal edema Neurological exam: PRESENT: alert, awake, oriented to person, oriented to place , oriented to time, oriented to situation, CN II-XII grossly intact. ABSENT: motor sensory deficit Psychiatric exam: PRESENT: appropriate affect, normal mood. ABSENT: homicidal ideation, suicidal ideation Skin exam: PRESENT: dry, intact, warm. ABSENT: cyanosis, rash Results Laboratory Results: 12/10/16 06:20 12/11/16 08:08 12/08/16 18:45 NT-Pro-B Natriuret Pep 1830 H Impressions: Chest X-Ray 12/08/16 17:58 IMPRESSION: Cardiomegaly. Linear atelectasis. Mild vascular prominence. Assessment & Plan - Diagnosis (1) Anemia Qualifiers: Anemia type: iron deficiency Iron deficiency anemia type: inadequate dietary iron intake Qualified Code(s): D50.8 - Other iron deficiency anemias Is this a current diagnosis for this admission?: YesPlan: Multifactorial with iron and B12 deficiency secondary to gastric bypass, we will go ahead and give another IV iron infusion tomorrow, she will then not require further infusions. We will see her then in 2 months time for recheck of iron levels. - Time Time Spent with patient: 25-34 minutes Critical Time spent with patient: 25-34 minutes
--- NOTE | 2016-12-12 12:52 | PDOC PROGRESS REPORT ---
Subjective Progress Note for:: 12/12/16 Subjective:: Patient doing much better. She is resting comfortably in bedside chair. Patient is very happy with her progress. She also saw Dr. Cuello and had received iron infusion yesterday. She is going to get another iron infusion. She has a Santiago catheter with good urine output. Her pedal edema and dyspnea has improved. Patient is being considered for placement in a rehabilitation/ retirement setting. She has no other specific complaints. Patient is maintaining sinus rhythm. Review of systems: Rest review of systems negative. Medications: Medications have been reviewed. Physical Exam Vital Signs: Temp Pulse Resp BP Pulse Ox 97.5 F 64 18 111/53 L 99 12/12/16 07:56 12/12/16 07:56 12/12/16 07:56 12/12/16 07:56 12/12/16 07:56 Intake & Output 12/11/16 12/12/16 12/13/16 06:59 06:59 06:59 Intake Total 970 1459 Output Total 7600 3975 Balance -6630 -2516 Weight 136.6 kg 134.7 kg Exam: GENERAL: well-nourished and in no acute distress. Alert and oriented x3 HEAD: Atraumatic, normocephalic. EYES: Pupils equal round and reactive to light, extraocular movements intact, sclera anicteric, conjunctiva are normal. ENT: TMs normal, nares patent, oropharynx clear without exudates. Moist mucous membranes. No oral ulcerations or bleeding gums noted NECK: supple without lymphadenopathy. Trachea is central. No cervical or axillary lymphadenopathy noted. Carotids are 2+, JVD WNL LUNGS: Respiration seems nonlabored, no significant accessory muscle action noted. Breath sounds clear to auscultation bilaterally and equal noted. No wheezes rales or rhonchi noted. No significant dullness noted on percussion. CHEST: Palpation of the chest wall shows no significant chest wall tenderness. No other significant abnormalities noted. 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 ABDOMEN: Soft, no significant tenderness appreciated, normoactive bowel sounds. No guarding, no rebound. No rigidity noted . No masses appreciated. EXTREMITIES: Pedal pulses are 1-2+, no calf tenderness noted. No clubbing or cyanosis.2+ + pedal edema noted NEUROLOGICAL: Focused neurological exam showed no significant neurologic deficit. Normal speech, no focal weakness appreciated. PSYCH: Normal mood, normal affect. Judgment and insight within normal limits. SKIN: No significant ecchymosis, rash, small healing ulcer noted dorsum of the left foot but no signs of infection or signs of pruritus noted. MUSCULOSKELETAL EXAM: No significant joint swelling noted. Results Laboratory Results: 12/10/16 06:20 12/11/16 08:08 12/08/16 18:45 NT-Pro-B Natriuret Pep 1830 H Impressions: Chest X-Ray 12/08/16 17:58 IMPRESSION: Cardiomegaly. Linear atelectasis. Mild vascular prominence. Assessment & Plan - Diagnosis (1) Acute diastolic CHF (congestive heart failure) Is this a current diagnosis for this admission?: Yes (2) Acute on chronic respiratory failure with hypoxemia Is this a current diagnosis for this admission?: Yes (3) Ambulatory dysfunction Is this a current diagnosis for this admission?: Yes (4) Anemia Qualifiers: Anemia type: iron deficiency Iron deficiency anemia type: inadequate dietary iron intake Qualified Code(s): D50.8 - Other iron deficiency anemias Is this a current diagnosis for this admission?: Yes (5) COPD (chronic obstructive pulmonary disease) Qualifiers: Emphysema type: unspecified Is this a current diagnosis for this admission?: Yes (6) Hypertension Qualifiers: Hypertension type: essential hypertension Qualified Code(s): I10 - Essential (primary) hypertension Is this a current diagnosis for this admission?: Yes (7) Morbid obesity Qualifiers: Obesity type: unspecified obesity type Qualified Code(s): E66.01 - Morbid (severe) obesity due to excess calories Is this a current diagnosis for this admission?: Yes - Notes Notes: Congestive heart failure: Diastolic acute on chronic. Will check a BNP level, chest x-ray and a chemistry panel to monitor progress. This will be predischarge assessment. The patient looks compensated today clinically but still has some pedal edema which could be partly lymphedema, partly venous insufficiency as well. Patient was placed on Demadex yesterday. Will assess response.. Acute on chronic respiratory failure with hypoxemia: Patient on nightly bilevel therapy. Patient also on some supplemental oxygen. Ambulatory dysfunction: Patient is working with physical therapy. A rehabilitation/retirement referral is being considered. 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 Patient being followed by business management analyst and has received iron infusion. COPD: Currently stable. Continue current regimen. Hypertension: Currently stable. Blood pressure under reasonable control. Continue with current regimen. Morbid obesity: Patient status post gastric bypass surgery in the past but has still gained weight. Will consider weight loss therapy as an outpatient. Patient encouraged to report any further problems. Overall she is showing gradual but definite improvement. - Time Time with patient: 15-25 minutes - CODE STATUS was discussed, patient remains full code. Surrogate decision-maker unchanged. Multiple medical problems were addressed.More than 50% of the time spent coordinating care, discussing management plans with involved caregivers. Management plans discussed with involved personnels. Medical decision making was of moderate to high complexity , patient's has multiple severe comorbidities. Medications reviewed and adjusted accordingly: Yes
[2016-12-12] MEDS: CYANOCOBALAMIN (VITAMIN B-12) INJ 1000 MCG/1 ML VIAL IM SCH (14:15)
[2016-12-12] MEDS: TORSEMIDE 20 MG TABLET PO SCH (14:17)
[2016-12-12] MEDS: MONTELUKAST SODIUM 10 MG TABLET PO SCH (21:50)
[2016-12-13] MEDS: CEFAZOLIN 1 GM/D5W RTU 1 GM/50 ML RTUPB IV SCH (05:14)
[2016-12-13] MEDS: LANSOPRAZOLE 15 MG TAB.RAP.DR PO SCH (05:14)
[2016-12-13] MEDS: HEPARIN SOD (PORCINE) 5,000 UNIT/ML 1 ML SYRINGE SUBCUT SCH ×3 (05:15→22:55)
[2016-12-13 05:25] LABS: BLOOD UREA NITROGEN 37 mg/dL (7-20); CALCIUM 8.3 mg/dL (8.4-10.2); CHLORIDE 90 mmol/L (98-107); CREATININE RESULT 1.09 mg/dL (0.52-1.25); GLUCOSE 105 mg/dL (75-110); POTASSIUM 4.2 mmol/L (3.6-5.0); SODIUM 140.1 mmol/L (137-145)
[2016-12-13 05:40] LABS: ANION GAP 8 (5-19)
[2016-12-13 05:48] LABS: CARBON DIOXIDE 42 mmol/L (22-30)
[2016-12-13] MEDS ORDERED: FERUMOXYTOL (NON-ESRD) 510 MG/NS 100 ML IV ONE ×2 (10:00)
[2016-12-13] MEDS: MUPIROCIN CALCIUM 2% CREAM 15 GM TP SCH ×2 (10:11→17:17)
[2016-12-13] MEDS: ASPIRIN 81 MG TABLET, ENT COATED PO SCH (10:12)
[2016-12-13] MEDS: IRON POLYSACCHARIDES COMPLEX 150 MG CAPSULE PO SCH (10:12)
[2016-12-13] MEDS: SPIRONOLACTONE 25 MG TABLET PO SCH (10:12)
[2016-12-13] MEDS: FLUTICASONE/SALMETEROL DISKUS 250-50 MCG/DOSE IH SCH ×2 (10:12→22:55)
[2016-12-13] MEDS: OXYBUTYNIN CHLORIDE 5 MG TABLET PO SCH ×2 (10:13→22:54)
[2016-12-13] MEDS: CARVEDILOL 3.125 MG TABLET PO SCH ×2 (10:13→22:55)
[2016-12-13] MEDS: CITALOPRAM HYDROBROMIDE 20 MG TABLET PO SCH (10:13)
[2016-12-13] MEDS: BENAZEPRIL HCL 10 MG TABLET PO SCH (10:14)
--- NOTE | 2016-12-13 10:42 | EKG REPORT ---
SEVERITY:- ABNORMAL ECG - SINUS RHYTHM ATRIAL PREMATURE COMPLEX NONSPECIFIC INTRAVENTRICULAR CONDUCTION DELAY PROBABLE LEFT VENTRICULAR HYPERTROPHY : Confirmed by: Tasneem Martinez 13-Dec-2016 10:41:00
[2016-12-13] MEDS: TORSEMIDE 20 MG TABLET PO SCH (13:03)
[2016-12-13] MEDS: CYANOCOBALAMIN (VITAMIN B-12) INJ 1000 MCG/1 ML VIAL IM SCH (13:03)
--- NOTE | 2016-12-13 15:16 | PDOC PROGRESS REPORT ---
Subjective Progress Note for:: 12/13/16 Subjective:: Patient seen on morning rounds. She is presently resting comfortably in bed. She denies any chest pain, shortness of breath, or dyspnea. She denies any nausea, vomiting, abdominal pain. She states her breathing does feel improved from that she came in. She has been diuresing well. She states she did not get out of bed yesterday. She denies any arthralgias or significant myalgias at present time. I discussed physical therapy's recommendation for her to go to rehabilitation. She would prefer now to go home with home physical therapy and nursing care. She lives with her sister. Physical Exam Vital Signs: Temp Pulse Resp BP Pulse Ox 97.9 F 57 L 23 H 112/45 L 96 12/13/16 11:37 12/13/16 11:37 12/13/16 11:37 12/13/16 11:37 12/13/16 11:37 Intake & Output 12/12/16 12/13/16 12/14/16 06:59 06:59 06:59 Intake Total 1459 1810 240 Output Total 3975 2500 700 Balance -2516 -690 -460 Weight 134.7 kg 136.9 kg General appearance: PRESENT: no acute distress, morbidly obese, well-developed, well-nourished Head exam: PRESENT: atraumatic, normocephalic Eye exam: PRESENT: conjunctiva pink, EOMI, PERRLA. ABSENT: scleral icterus Ear exam: PRESENT: normal external ear exam Mouth exam: PRESENT: moist, tongue midline Neck exam: ABSENT: carotid bruit, JVD, lymphadenopathy, thyromegaly Respiratory exam: PRESENT: clear to auscultation dena. ABSENT: rales, rhonchi, wheezes Cardiovascular exam: PRESENT: RRR. ABSENT: diastolic murmur, rubs, systolic murmur Pulses: PRESENT: normal dorsalis pedis pul Vascular exam: PRESENT: normal capillary refill GI/Abdominal exam: PRESENT: normal bowel sounds, soft. ABSENT: distended, guarding, mass, organolmegaly, rebound, tenderness Rectal exam: PRESENT: deferred Extremities exam: PRESENT: full ROM. ABSENT: calf tenderness, clubbing, pedal edema Musculoskeletal exam: PRESENT: ambulatory, full ROM, normal inspection Neurological exam: PRESENT: alert, awake, oriented to person, oriented to place , oriented to time, oriented to situation, CN II-XII grossly intact. ABSENT: motor sensory deficit Psychiatric exam: PRESENT: appropriate affect, normal mood. ABSENT: homicidal ideation, suicidal ideation Skin exam: PRESENT: abrasion - left foot that is healing, dry, intact, warm. ABSENT: cyanosis, rash Results Laboratory Results: 12/10/16 06:20 12/13/16 04:15 12/13/16 04:15 Sodium 140.1 Potassium 4.2 Chloride 90 L Carbon Dioxide 42 H* Anion Gap 8 BUN 37 H Creatinine 1.09 Est GFR ( Amer) > 60 Est GFR (Non-Af Amer) 49 L Glucose 105 Calcium 8.3 L 12/08/16 18:45 NT-Pro-B Natriuret Pep 1830 H Impressions: Chest X-Ray 12/12/16 12:54 IMPRESSION: CARDIAC ENLARGEMENT. MILD VASCULAR CONGESTION. Assessment & Plan - Diagnosis (1) Acute on chronic respiratory failure with hypoxemia Is this a current diagnosis for this admission?: YesPlan: Improving with diuresis.. Will decrease lasix to daily. (2) Acute diastolic CHF (congestive heart failure) Is this a current diagnosis for this admission?: YesPlan: Continue diuresis, blood pressure is improved. (3) COPD (chronic obstructive pulmonary disease) Qualifiers: Emphysema type: unspecified Is this a current diagnosis for this admission?: YesPlan: Continue nebulizers and inhalers. (4) Left leg cellulitis Is this a current diagnosis for this admission?: YesPlan: Erythema is almost resolved, leukocytosis improved with antibiotics. Will d/c IV antibiotics (5) Hypertension Qualifiers: Hypertension type: essential hypertension Qualified Code(s): I10 - Essential (primary) hypertension Is this a current diagnosis for this admission?: Yes (6) Moderate to severe pulmonary hypertension Is this a current diagnosis for this admission?: YesPlan: Cardiology is following most likely partially due to obstructive sleep apnea (7) Ambulatory dysfunction Is this a current diagnosis for this admission?: YesPlan: Physical therapy has been consulted. Discussed patient's need to increase activity with her and nurse. Will need home physical therapy (8) Anemia Qualifiers: Anemia type: iron deficiency Iron deficiency anemia type: inadequate dietary iron intake Qualified Code(s): D50.8 - Other iron deficiency anemias Is this a current diagnosis for this admission?: YesPlan: Presently stable. (9) Morbid (severe) obesity due to excess calories Is this a current diagnosis for this admission?: YesPlan: Increase activity, calorie reduction - Time Time Spent with patient: 25-34 minutes Critical Time spent with patient: 15-24 minutes Anticipated discharge: Home with Homehealth Within: within 24 hours
--- NOTE | 2016-12-13 20:15 | PDOC PROGRESS REPORT ---
Subjective Progress Note for:: 12/13/16 Subjective:: Patient was seen in the morning Patient doing much better. She is resting comfortably in bedside chair. Patient is very happy with her progress. She also saw Dr. Cuello and had received iron infusion yesterday. She has a Santiago catheter with good urine output. Patient wishes to continue with Santiago catheter for the time being. Her pedal edema and dyspnea has improved. Patient is being considered for placement in a rehabilitation/senior care setting. She has no other specific complaints. Patient is maintaining sinus rhythm. Review of systems: Rest review of systems negative. Medications: Medications have been reviewed. Patient did have a chest x-ray which was reviewed. It showed cardiomegaly but clear lung borrego. It was a portable and somewhat limited. Patient also had a 12-lead EKG shows sinus rhythm, no acute ST-T wave changes. Patient lab work was reviewed. BNP level was not performed and was ordered for tomorrow morning. Physical Exam Vital Signs: Temp Pulse Resp BP Pulse Ox 98.3 F 69 18 120/62 93 12/13/16 19:28 12/13/16 19:28 12/13/16 19:28 12/13/16 19:28 12/13/16 19:28 Intake & Output 12/12/16 12/13/16 12/14/16 06:59 06:59 06:59 Intake Total 1459 1810 830 Output Total 3975 2500 1100 Balance -2516 -690 -270 Weight 134.7 kg 136.9 kg Exam: GENERAL: well-nourished and in no acute distress. Alert and oriented x3 HEAD: Atraumatic, normocephalic. EYES: Pupils equal round and reactive to light, extraocular movements intact, sclera anicteric, conjunctiva are normal. ENT: TMs normal, nares patent, oropharynx clear without exudates. Moist mucous membranes. No oral ulcerations or bleeding gums noted NECK: supple without lymphadenopathy. Trachea is central. No cervical or axillary lymphadenopathy noted. Carotids are 2+, JVD WNL LUNGS: Respiration seems nonlabored, no significant accessory muscle action noted. Breath sounds clear to auscultation bilaterally and equal noted. No wheezes rales or rhonchi noted. No significant dullness noted on percussion. CHEST: Palpation of the chest wall shows no significant chest wall tenderness. No other significant abnormalities noted. 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 ABDOMEN: Soft, no significant tenderness appreciated, normoactive bowel sounds. No guarding, no rebound. No rigidity noted . No masses appreciated. EXTREMITIES: Pedal pulses are 1-2+, no calf tenderness noted. No clubbing or cyanosis.2 + pedal edema noted. Superficial ulceration noted dorsum of left foot. NEUROLOGICAL: Focused neurological exam showed no significant neurologic deficit. Normal speech, no focal weakness appreciated. PSYCH: Normal mood, normal affect. Judgment and insight within normal limits. SKIN: No significant ecchymosis, rash, ulcerations or signs of pruritus noted. MUSCULOSKELETAL EXAM: No significant joint swelling noted. Results Laboratory Results: 12/10/16 06:20 12/13/16 04:15 12/13/16 04:15 Sodium 140.1 Potassium 4.2 Chloride 90 L Carbon Dioxide 42 H* Anion Gap 8 BUN 37 H Creatinine 1.09 Est GFR ( Amer) > 60 Est GFR (Non-Af Amer) 49 L Glucose 105 Calcium 8.3 L 12/08/16 18:45 Blood Blood Culture - Final NO GROWTH IN 5 DAYS 12/08/16 18:45 NT-Pro-B Natriuret Pep 1830 H Impressions: Chest X-Ray 12/12/16 12:54 IMPRESSION: CARDIAC ENLARGEMENT. MILD VASCULAR CONGESTION. Assessment & Plan - Diagnosis (1) Acute diastolic CHF (congestive heart failure) Is this a current diagnosis for this admission?: Yes (2) Acute on chronic respiratory failure with hypoxemia Is this a current diagnosis for this admission?: Yes (3) Ambulatory dysfunction Is this a current diagnosis for this admission?: Yes (4) Anemia Qualifiers: Anemia type: iron deficiency Iron deficiency anemia type: inadequate dietary iron intake Qualified Code(s): D50.8 - Other iron deficiency anemias Is this a current diagnosis for this admission?: Yes (5) COPD (chronic obstructive pulmonary disease) Qualifiers: Emphysema type: unspecified Is this a current diagnosis for this admission?: Yes (6) Hypertension Qualifiers: Hypertension type: essential hypertension Qualified Code(s): I10 - Essential (primary) hypertension Is this a current diagnosis for this admission?: Yes (7) Morbid obesity Qualifiers: Obesity type: unspecified obesity type Qualified Code(s): E66.01 - Morbid (severe) obesity due to excess calories Is this a current diagnosis for this admission?: Yes - Notes Notes: Acute diastolic heart failure with contribution from right heart failure: Patient seems compensated clinically. We'll check a BNP level. Continue current dose of diuretic therapy. Acute on chronic respiratory failure with hypoxemia: This is related to obesity hypoventilation syndrome, COPD and CHF. Patient will benefit from oxygen supplementation. Ambulatory dysfunction: Ration claims that she did walk with physical therapy yesterday. Patient encouraged in further ambulation. COPD: Stable. Hypertension: Blood pressure is stable. Obesity: Patient has been encouraged in weight loss. - Time Time with patient: 15-25 minutes - CODE STATUS was discussed, patient remains full code. Surrogate decision-maker unchanged. Multiple medical problems were addressed.More than 50% of the time spent coordinating care, discussing management plans with involved caregivers. Management plans discussed with involved personnels. Medical decision making was of moderate to high complexity , patient's has multiple severe comorbidities. Medications reviewed and adjusted accordingly: Yes
[2016-12-13] MEDS: MONTELUKAST SODIUM 10 MG TABLET PO SCH (22:54)
[2016-12-14] MEDS: LANSOPRAZOLE 15 MG TAB.RAP.DR PO SCH (06:02)
[2016-12-14] MEDS: HEPARIN SOD (PORCINE) 5,000 UNIT/ML 1 ML SYRINGE SUBCUT SCH (06:02)
[2016-12-14] MEDS: MUPIROCIN CALCIUM 2% CREAM 15 GM TP SCH (10:07)
[2016-12-14] MEDS: FLUTICASONE/SALMETEROL DISKUS 250-50 MCG/DOSE IH SCH (10:07)
[2016-12-14] MEDS: IRON POLYSACCHARIDES COMPLEX 150 MG CAPSULE PO SCH (10:07)
[2016-12-14] MEDS: SPIRONOLACTONE 25 MG TABLET PO SCH (10:07)
[2016-12-14] MEDS: CARVEDILOL 3.125 MG TABLET PO SCH (10:08)
[2016-12-14] MEDS: CITALOPRAM HYDROBROMIDE 20 MG TABLET PO SCH (10:08)
[2016-12-14] MEDS: BENAZEPRIL HCL 10 MG TABLET PO SCH (10:08)
[2016-12-14] MEDS: ASPIRIN 81 MG TABLET, ENT COATED PO SCH (10:08)
[2016-12-14] MEDS: OXYBUTYNIN CHLORIDE 5 MG TABLET PO SCH (10:09)
[2016-12-14 11:30] VITALS: BP 120/41
--- NOTE | 2016-12-14 16:14 | PDOC DISCHARGE SUMMARY ---
General - Admit/Disc Date/PCP Admission Date/Primary Care Provider: 12/08/16 17:56 YARELIS MARTINEZ Discharge Date: 12/14/16 - Discharge Diagnosis (1) Acute on chronic respiratory failure with hypoxemia Is this a current diagnosis for this admission?: YesSummary: Continue current medications patient will follow-up with Dr. Martinez (2) Acute diastolic CHF (congestive heart failure) Is this a current diagnosis for this admission?: Yes (3) COPD (chronic obstructive pulmonary disease) Is this a current diagnosis for this admission?: Yes (4) Left leg cellulitis Is this a current diagnosis for this admission?: YesSummary: Resolved (5) Hypertension Is this a current diagnosis for this admission?: YesSummary: Continue current medications she is normotensive. (6) Moderate to severe pulmonary hypertension Is this a current diagnosis for this admission?: Yes (7) Ambulatory dysfunction Is this a current diagnosis for this admission?: YesSummary: Patient is increased activity with PT she will need home physical therapy as well. (8) Anemia Is this a current diagnosis for this admission?: Yes (9) Morbid (severe) obesity due to excess calories Is this a current diagnosis for this admission?: Yes - Additional Information Resuscitation Status: Full Code Discharge Diet: Cardiac Discharge Activity: Activity As Tolerated, Balance Activity w/Rest, Weigh Daily Home Medications: Albuterol Sulfate [Ventolin 0.083% Neb 2.5 mg/3 mL Ampul] 2.5 mg NEB RTQ6HP PRN 12/08/16 Albuterol Sulfate [Ventolin HFA MDI 18 GM] 2 puff IH Q6HP PRN 12/08/16 Benazepril HCl [Lotensin 10 mg Tablet] 10 mg PO DAILY 12/08/16 Citalopram Hydrobromide [Celexa 20 mg Tablet] 20 mg PO DAILY 12/08/16 Fluticasone/Salmeterol [Advair 250-50 Diskus 28 dose] 1 puff IH Q12 12/08/16 Montelukast Sodium [Singulair 10 mg Tablet] 10 mg PO DAILY 12/08/16 Omeprazole 20 mg PO DAILY 12/08/16 Oxybutynin Chloride [Ditropan 5 mg Tablet] 5 mg PO Q12 12/08/16 Aspirin [Ecotrin 81 mg EC Tablet] 81 mg PO DAILY tabec 12/14/16 Carvedilol [Coreg 3.125 mg Tablet] 3.125 mg PO Q12 #60 tablet 12/14/16 Hydroxyzine HCl [Atarax 10 mg Tablet] 10 mg PO Q6HP PRN tablet 12/14/16 Mupirocin Calcium [Bactroban 2% Cream 15 gm] 1 applic TP BID tube 12/14/16 Spironolactone [Aldactone 25 mg Tablet] 25 mg PO DAILY #30 tablet 12/14/16 Torsemide [Demadex 20 mg Tablet] 20 mg PO DAILY@1300 #30 tablet 12/14/16 History of Present Illness Patient complains of: Shortness of breath and lower extremity swelling and redness History of Present Illness: ASHLEY COTTRELL is a 71 year old female with past medical history of diastolic heart failure, severe pulmonary hypertension, morbid obesity, oxygen dependent COPD, systemic hypertension is sent to the hospital for direct admission from cardiology (Dr. Martinez) office where she was noted to have shortness of breath, hypoxia with O2 sat in the mid 80s on supplemental oxygen and peripheral edema. She denies chest pain. He states that her symptoms have been worsening over the past several weeks as she is noted increasing swelling in her legs and increasing shortness of breath. She has also started to notice discomfort and redness in left leg in particular. Hospital Course Hospital Course: Patient was admitted to the hospitalist service on [facility] for acute on chronic diastolic heart failure. [employer] Professional was consult to assist in her failure management. She underwent transthoracic echocardiogram which showed grade 2 over 4 diastolic dysfunction and moderate to severe pulmonary hypertension, with our RVSP of 45 mmHg. She was diuresed. Dr. Stafford, saw the patient in consult for cardiology. She was given IV Rocephin for her left lower extremity cellulitis. This resolved over the next 3 days. Antibiotics were stopped. She increased her activity with physical therapy. Initially they recommended acute inpatient rehabilitation, however patient was able to progress. She will have home physical therapy and home health nursing. Patient presently lives with her sister and [id number]. Physical Exam Vital Signs: Temp Pulse Resp BP Pulse Ox 98.0 F 58 L 16 120/41 L 96 12/14/16 10:33 12/14/16 10:33 12/14/16 10:33 12/14/16 10:33 12/14/16 10:33 Intake & Output 12/13/16 12/14/16 12/15/16 06:59 06:59 06:59 Intake Total 1810 1388 Output Total 2500 1800 Balance -690 -412 Weight 136.9 kg 132.6 kg General appearance: PRESENT: no acute distress, morbidly obese, well-developed, well-nourished Head exam: PRESENT: atraumatic, normocephalic Eye exam: PRESENT: conjunctiva pink, EOMI, PERRLA. ABSENT: scleral icterus Ear exam: PRESENT: normal external ear exam Mouth exam: PRESENT: moist, tongue midline Neck exam: ABSENT: carotid bruit, JVD, lymphadenopathy, thyromegaly Respiratory exam: PRESENT: clear to auscultation dena, symmetrical, unlabored. ABSENT: rales, rhonchi, wheezes Cardiovascular exam: PRESENT: RRR. ABSENT: diastolic murmur, rubs, systolic murmur Pulses: PRESENT: normal carotid pulses, normal radial pulses Vascular exam: PRESENT: normal capillary refill GI/Abdominal exam: PRESENT: normal bowel sounds, soft. ABSENT: distended, guarding, mass, organolmegaly, rebound, tenderness Rectal exam: PRESENT: deferred Extremities exam: PRESENT: full ROM. ABSENT: calf tenderness, clubbing, pedal edema Neurological exam: PRESENT: alert, awake, oriented to person, oriented to place , oriented to time, oriented to situation, CN II-XII grossly intact. ABSENT: motor sensory deficit Psychiatric exam: PRESENT: appropriate affect, normal mood. ABSENT: homicidal ideation, suicidal ideation Skin exam: PRESENT: dry, intact, warm. ABSENT: cyanosis, rash Results Laboratory Results: 12/10/16 06:20 12/13/16 04:15 12/08/16 21:10 Blood Blood Culture - Final NO GROWTH IN 5 DAYS 12/08/16 18:45 Blood Blood Culture - Final NO GROWTH IN 5 DAYS 12/08/16 12/14/16 18:45 04:39 NT-Pro-B Natriuret Pep 1830 H 690 Impressions: Chest X-Ray 12/12/16 12:54 IMPRESSION: CARDIAC ENLARGEMENT. MILD VASCULAR CONGESTION. Qualifiers PATEINT BEING DISCHARGED WITH ANY OF THE FOLLOWING DIAGNOSIS?: Heart Failure Plan Discharge Plan: Home with sister. She will receive home health nursing and home physical therapy. Follow-up with his primary care provider is Dr. Martinez Time Spent: Less than 30 Minutes
--- NOTE | 2016-12-14 18:59 | PDOC PROGRESS REPORT ---
Subjective Progress Note for:: 12/14/16 Subjective:: Patient was seen in the morning Patient doing much better. She is resting comfortably in bedside chair. Patient is very happy with her progress. Patient is expecting to be discharged today. Cardiac evaluation during this hospitalization was reviewed. Physical Exam Vital Signs: Temp Pulse Resp BP Pulse Ox 98.0 F 58 L 16 120/41 L 96 12/14/16 10:33 12/14/16 10:33 12/14/16 10:33 12/14/16 10:33 12/14/16 10:33 Intake & Output 12/13/16 12/14/16 12/15/16 06:59 06:59 06:59 Intake Total 1810 1388 Output Total 2500 1800 Balance -690 -412 Weight 136.9 kg 132.6 kg Exam: GENERAL: well-nourished and in no acute distress. Alert and oriented x3 HEAD: Atraumatic, normocephalic. EYES: Pupils equal round and reactive to light, extraocular movements intact, sclera anicteric, conjunctiva are normal. ENT: TMs normal, nares patent, oropharynx clear without exudates. Moist mucous membranes. No oral ulcerations or bleeding gums noted NECK: supple without lymphadenopathy. Trachea is central. No cervical or axillary lymphadenopathy noted. Carotids are 2+, JVD WNL LUNGS: Respiration seems nonlabored, no significant accessory muscle action noted. Breath sounds clear to auscultation bilaterally and equal noted. No wheezes rales or rhonchi noted. No significant dullness noted on percussion. CHEST: Palpation of the chest wall shows no significant chest wall tenderness. No other significant abnormalities noted. HEART: [place] RN GYNECOLOGY, No PSH, 1/6 SONDRA aortic area, 1/6 mccray systolic murmur mitral area, no rubs, no gallops. ABDOMEN: Soft, no significant tenderness appreciated, normoactive bowel sounds. No guarding, no rebound. No rigidity noted . No masses appreciated. EXTREMITIES: Pedal pulses are 1-2+, no calf tenderness noted. No clubbing or cyanosis.1-2 + pedal edema noted NEUROLOGICAL: Focused neurological exam showed no significant neurologic deficit. Normal speech, no focal weakness appreciated. PSYCH: Normal mood, normal affect. Judgment and insight within normal limits. SKIN: No significant ecchymosis, rash, ulcerations or signs of pruritus noted. MUSCULOSKELETAL EXAM: No significant joint swelling noted. Results Laboratory Results: 12/10/16 06:20 12/13/16 04:15 12/08/16 21:10 Blood Blood Culture - Final NO GROWTH IN 5 DAYS 12/08/16 18:45 Blood Blood Culture - Final NO GROWTH IN 5 DAYS 12/08/16 12/14/16 18:45 04:39 NT-Pro-B Natriuret Pep 1830 H 690 Impressions: Chest X-Ray 12/12/16 12:54 IMPRESSION: CARDIAC ENLARGEMENT. MILD VASCULAR CONGESTION. Assessment & Plan - Diagnosis (1) Acute diastolic CHF (congestive heart failure) Is this a current diagnosis for this admission?: Yes (2) Acute on chronic respiratory failure with hypoxemia Is this a current diagnosis for this admission?: Yes (3) Ambulatory dysfunction Is this a current diagnosis for this admission?: Yes (4) Anemia Qualifiers: Anemia type: iron deficiency Iron deficiency anemia type: inadequate dietary iron intake Qualified Code(s): D50.8 - Other iron deficiency anemias Is this a current diagnosis for this admission?: Yes (5) COPD (chronic obstructive pulmonary disease) Qualifiers: Emphysema type: unspecified Is this a current diagnosis for this admission?: Yes (6) Hypertension Qualifiers: Hypertension type: essential hypertension Qualified Code(s): I10 - Essential (primary) hypertension Is this a current diagnosis for this admission?: Yes (7) Morbid obesity Qualifiers: Obesity type: unspecified obesity type Qualified Code(s): E66.01 - Morbid (severe) obesity due to excess calories Is this a current diagnosis for this admission?: Yes - Notes Notes: Acute diastolic heart failure with contribution from right heart failure: Patient seems compensated clinically. BNP level shows improvement. Patient on by mouth diuretics. We will be happy to follow patient in the office. Acute on chronic respiratory failure with hypoxemia: This is related to obesity hypoventilation syndrome, COPD and CHF. Patient will benefit from oxygen supplementation. Patient will also benefit from bilevel therapy. Ambulatory dysfunction: Patient is ambulating to the bathroom. Santiago catheter is out. Patient encouraged in further ambulation. COPD: Stable. Hypertension: Blood pressure is stable. Obesity: Patient has been encouraged in weight loss. Overall significant improvement in patient condition but patient is still debilitated. She is being discharged. - Time Time with patient: 15-25 minutes - CODE STATUS was discussed, patient remains full code. Surrogate decision-maker unchanged. Multiple medical problems were addressed.More than 50% of the time spent coordinating care, discussing management plans with involved caregivers. Management plans discussed with involved personnels. Medical decision making was of moderate complexity, patient's has multiple severe comorbidities. Medications reviewed and adjusted accordingly: Yes
== END 2016-12-14 11:30 | disposition home health service (06) | DRG 291 ==
LOC: 3W 15:53 → UNDOADMIN 15:53 → 3W 17:56
PROVIDERS: ADMIT Family Medicine; ATTEND Family Medicine
PROC: 3E0F73Z Introduction of Anti-inflammatory into Respiratory Tract, Via Natural or Artificial Opening (ICD-10-PCS; 2016-12-09)
PROC: 5A09457 Assistance with Respiratory Ventilation, 24-96 Consecutive Hours, Continuous Positive Airway Pressure (ICD-10-PCS; principal; 2016-12-10)
DX: I11.0 Hypertensive heart disease with heart failure (principal); J96.21 Acute and chronic respiratory failure with hypoxia; L03.116 Cellulitis of left lower limb; E66.2 Morbid (severe) obesity with alveolar hypoventilation; Z68.43 Body mass index [BMI] 50.0-59.9, adult; I50.33 Acute on chronic diastolic (congestive) heart failure; J44.9 Chronic obstructive pulmonary disease, unspecified; I27.2 Other secondary pulmonary hypertension; M19.90 Unspecified osteoarthritis, unspecified site; D50.9 Iron deficiency anemia, unspecified; D51.9 Vitamin B12 deficiency anemia, unspecified; E78.5 Hyperlipidemia, unspecified; Z79.899 Other long term (current) drug therapy; Z99.81 Dependence on supplemental oxygen; Z98.84 Bariatric surgery status; Z90.49 Acquired absence of other specified parts of digestive tract; Z90.710 Acquired absence of both cervix and uterus; Z83.3 Family history of diabetes mellitus; Z82.49 Family history of ischemic heart disease and other diseases of the circulatory system; Z88.6 Allergy status to analgesic agent; Z88.3 Allergy status to other anti-infective agents; Z88.8 Allergy status to other drugs, medicaments and biological substances; Z87.891 Personal history of nicotine dependence
CPT/HCPCS: 36415; 36600; 71010; 80048; 80053; 80061; 82607; 82652; 82728; 82746; 82803; 82962; 83540; 83550; 83735; 83880; 84439; 84443; 84466; 84481; 85025; 85045; 87040; 93005; 93010; 93970; 94660; G8978-GP; G8979-GP; J0690; J1644; J1940; J3420; J3490; Q0138

== ENCOUNTER → 2017-01-18 | Outpatient (CLI) | payer MEDICARE, MEDICAID ==
--- NOTE | 2017-01-18 16:27 | RADIOLOGY REPORT (SQ) ---
EXAM DESCRIPTION: CT CHEST WITHOUT COMPLETED DATE/TIME: 01/18/2017 1:40 pm REASON FOR STUDY: PULMONARY INFILTRATE R91.8 OTHER NONSPECIFIC ABNORMAL FINDING OF LUNG FIELD COMPARISON: Chest films 12/12/2016, 12/08/2016, 09/13/2016 TECHNIQUE: CT scan performed of the chest without intravenous contrast. Images reviewed with lung, soft tissue and bone windows. Reconstructed coronal and sagittal MPR images reviewed. All images st ored on PACS. All CT scanners at this facility use dose modulation, iterative reconstruction, and/or weight based d osing when appropriate to reduce radiation dose to as low as reasonably achievable (ALARA). [facility]: Dose Right [facility]: CareDose [facility]: Dose Right [facility]: Teradose 4D [facility]: [employer] RADIATION DOSE: 19.41 mGy. LIMITATIONS: Morbidly obese patient FINDINGS: LUNGS AND PLEURA: There is bandlike airspace disease in the anterior aspect of the right u pper lobe, and in the medial aspect of the right middle lobe. Similar findings are present in the le ft upper lobe and lingula. This is likely atelectasis or scarring. No pleural effusions. No pneumothorax. No alveolar infiltrates worrisome for pulmonary edema or den se pneumonia. No increased interstitial markings. HILAR AND MEDIASTINAL STRUCTURES: No identified masses or abnormal nodes. No obvious aneurysm. HEART AND VASCULAR STRUCTURES: No aneurysm. No pericardial effusion. Moderate cardiomegaly UPPER ABDOMEN: Clips right upper quadrant post cholecystectomy. Gastric stapling. THYROID AND OTHER SOFT TISSUES: No masses. No adenopathy. BONES: Diffuse thoracic spondylotic change. Advanced arthritis at both shoulders. HARDWARE: None in the chest. OTHER: No other significant findings. IMPRESSION: Bandlike airspace disease, atelectasis versus scarring, in the medial aspect of the righ t and left upper lobe. TECHNICAL DOCUMENTATION: JOB ID: [id number] Quality ID # [id number]: Final reports with documentation of one or more dose reduction techniques (e.g., Au tomated exposure control, adjustment of the mA and/or kV according to patient size, use of iterative reconstruction technique) 2010 [employer]- All Rights Reserved
== END ==
LOC: RAD 13:14
PROVIDERS: ATTEND Internal Medicine Critical Care Medicine
DX: R91.8 Other nonspecific abnormal finding of lung field (principal)
CPT/HCPCS: 71250

== ENCOUNTER 2017-03-26 10:05 | Emergency (ER) | payer MEDICARE, MEDICAID ==
--- NOTE | 2017-03-26 10:41 | ER Document Report ---
ED General - General Information source: Patient TRAVEL OUTSIDE OF THE [place] IN LAST 30 DAYS: No - HPI Associated symptoms: Other - see above <PEE PITTMAN - Last Filed: 03/26/17 10:34> <LILLIANA SERNA - Last Filed: 03/26/17 15:36> - General Chief Complaint: Leg Swelling Stated Complaint: LEFT ARM PAIN Time Seen by Provider: 03/26/17 10:18 Notes: Patient is a 72 year old female who presents to the ED with complaints of left arm pain secondary to cellulites and left leg swelling for the past 2 days. Patient also complains of worsened dyspnea with minor exertion. Patient has very limited ambulation at home and normally uses an electric wheelchair. Patient is on 2L of O2 at home. Patient was on a sleep apnea machine, it was taken away since the patient was not using it properly but states that there is a new one ordered. Patient denies any urinary symptoms that are new. Patient denies any nausea, vomiting or diarrhea. (PEE PITTMAN) - Related Data Allergies/Adverse Reactions: codeine [Codeine] Allergy (Verified 03/26/17 13:02) demeclocycline HCl [From Declomycin] Allergy (Verified 03/26/17 13:02) oxaprozin [From Daypro] Allergy (Verified 03/26/17 13:02) Home Medications: Current Home Medications Cholecalciferol (Vitamin D3) [Vitamin D3 1000 Unit Tablet] 1 tab PO DAILY [History] Naproxen Sodium 220 mg PO BID 03/26/17 [History] Triamcinolone Acetonide [Aristocort 0.1% Cream 15 gm] 1 applic TP BID 03/26/17 [ History] Past Medical History - General Information source: Patient - Social History Smoking Status: Unknown if Ever Smoked Family History: CAD, DM Patient has suicidal ideation: No Patient has homicidal ideation: No - Past Medical History Cardiac Medical History: Reports: Hx Congestive Heart Failure - 2/4 LVDD, normal EF, Hx Hypercholesterolemia, Hx Hypertension Denies: Hx Coronary Artery Disease, Hx Heart Attack Pulmonary Medical History: Reports: Hx Asthma, Hx COPD - Home oxygen dependent 3.5 L nasal cannula, Hx Pneumonia Denies: Hx Bronchitis Neurological Medical History: Denies: Hx Cerebrovascular Accident, Hx Seizures Endocrine Medical History: Denies: Hx Diabetes Mellitus Type 1, Hx Diabetes Mellitus Type 2 Renal/ Medical History: Denies: Hx Peritoneal Dialysis Musculoskeltal Medical History: Reports Hx Arthritis Past Surgical History: Reports: Hx Cholecystectomy, Hx Gastric Bypass Surgery, Hx Hysterectomy, Other - Reduction mammoplasty - Immunizations Hx Diphtheria, Pertussis, Tetanus Vaccination: Yes Hx Pneumococcal Vaccination: 08/22/14 <ZAINPEE - Last Filed: 03/26/17 10:34> Review of Systems - Review of Systems Constitutional: No symptoms reported EENT: No symptoms reported Cardiovascular: No symptoms reported Respiratory: See HPI, Short of breath Gastrointestinal: See HPI. denies: Diarrhea, Nausea, Vomiting Genitourinary: See HPI. denies: Dysuria Female Genitourinary: No symptoms reported Musculoskeletal: No symptoms reported Skin: No symptoms reported Hematologic/Lymphatic: No symptoms reported Neurological/Psychological: No symptoms reported <PEE PITTMAN - Last Filed: 03/26/17 10:34> Physical Exam - General General appearance: Appears well, Alert In distress: None - HEENT Head: Normocephalic, Atraumatic Eyes: Normal Extraocular movements intact: Yes Pupils: PERRL - Respiratory Respiratory status: No respiratory distress Breath sounds: Normal - Cardiovascular Rhythm: Regular Heart sounds: Normal auscultation Murmur: No Pulses: Normal: Radial, Posterior tibial, Dorsalis pedis - Abdominal Inspection: Obese Tenderness: Nontender - Back Back: Normal - Extremities General upper extremity: Normal ROM, Other - erythemetous, hot to touch area of cellulites on outer left upper arm and forearm, no decrepitus or necrosis, good pulses and profusion. General lower extremity: Normal ROM, Other - left calf is 2x greater in size than right calf, mild left calf tenderness in left lower extremity, good pulses and profusion.. No: Edema - no pitting edema bilaterally - Neurological Neuro grossly intact: Yes - Psychological Associated symptoms: Normal affect, Normal mood - Skin Skin Temperature: Warm Skin irregularity: other - erythemetous, hot to touch area of cellulites on outer left upper arm and forearm, no decrepitus or necrosis, good pulses and profusion. <PEE PITTMAN - Last Filed: 03/26/17 10:34> Course <PEE PITTMAN - Last Filed: 03/26/17 10:34> - Laboratory Result Diagrams: 03/26/17 10:30 03/26/17 13:53 <LILLIANA SERNA - Last Filed: 03/26/17 15:36> - Re-evaluation Re-evalutation: 03/26/17 12:14 Patient presents emergency room with mild shortness of breath and left leg swollen. Her P PCP Dr. Sweeney and she sees cardiology Dr. Martinez. She has a history of congestive heart failure and is on 20 mg of antidiuretic a day. She says she has chronic left lower extremity swelling but the left lower extremity is more swollen today than it has been in the recent past. She denies a history of DVT. She said she got increased shortness of breath today when she ambulated. Patient and family states she ambulates very little she gets up out of bed and goes to her electric wheelchair and gets out of her electric wheelchair to go to the bathroom but that is the extent of how much she ambulates on a regular basis. She has sleep apnea for which she has not used her BiPAP machine in quite some time and is on O2 2 L 24 7 [id number]. On examination they were taken the blood pressure in the forearm and it was reading 87/51. We got a large blood pressure cuff and she is morbidly obese in the manual blood pressure is 110/70 so she is not hypotensive. She is also not in any respiratory distress. Heart rate and rhythm is regular lungs are diminished no audible wheezes rales or rhonchi she is morbidly obese. She has a red hot swollen area of cellulitis on her left upper arm and left forearm. There is no open sores or lesions crepitus or necrosis good pulses and perfusion. Her left lower extremity is significantly more swollen than the right lower extremity but she has equal femoral dorsalis pedis posterior tibial pulses and perfusion with no neurological deficits. She has mild calf tenderness but no pitting edema bilaterally. 03/26/17 13:44 No chemistries are back on the patient as of 3-1/2 hours later. The nurses it was hemolyzed specimen twice and they could not get in the ER sooner calling the lab person to come get it. Patient is negative for DVT on ultrasound chest x-ray is negative for acute pathology. 03/26/17 15:15 08/05/17 15:16 (LILLIANA SERNA) - Vital Signs Vital signs: Temp Pulse Resp BP Pulse Ox 98 F 71 17 112/57 L 98 03/26/17 13:46 03/26/17 13:46 03/26/17 13:46 03/26/17 13:46 03/26/17 13:46 - Laboratory Laboratory results interpreted by me: 03/26/17 03/26/17 10:30 13:53 RBC 3.71 L Hgb 11.1 L Hct 35.1 L MCHC 31.6 L RDW 16.2 H Seg Neutrophils % 79.4 H Lymphocytes % 9.7 L Potassium 5.4 H BUN 27 H Est GFR (Non-Af Amer) 53 L Alkaline Phosphatase 171 H Total Protein 5.9 L Albumin 2.9 L Discharge <PEE PITTMAN - Last Filed: 03/26/17 10:34> <LILLIANA SERNA - Last Filed: 03/26/17 15:36> - Discharge Clinical Impression: unilateral lower extremity edema Cellulitis Qualifiers: Site of cellulitis: trunk Site of cellulitis of trunk: unspecified site Qualified Code(s): L03.319 - Cellulitis of trunk, unspecified Condition: Stable Disposition: HOME, SELF-CARE Additional Instructions: Cellulitis You have an infection of your skin and underlying soft tissues called cellulitis. This is due to bacteria, which can enter through any break in the skin, or even through an irritated hair follicle. Untreated, cellulitis will usually worsen. Antibiotics are required. Usually, warm packs or warm soaks, and elevation of the infected area are recommended. You should start getting better within 24 to 36 hours. Most infections respond quickly to the right medication. Follow-up care is important, however, to check for abscess (boil) formation, unsuspected foreign body, or resistant infection. If you develop fever, chills, or if the area of infection is becoming rapidly more swollen or painful, call the doctor at once. Prescriptions: Clindamycin HCl 300 mg PO BID #14 capsule Referrals: KATERYNA CHAWLA PA [Primary Care Provider] - (in 2-3 days return to er sooner for increasing worsening or new symptoms) Scribe Attestation: 03/26/17 15:15 I personally performed the services described in the documentation reviewed the documentation recorded by my scribe in my presence and it accurately and completely records my words and actions (LILLIANA SERNA) Scribe Documentation - Scribe Written by Dane:: dane Hemrosillo, 03/26/2017, 1048 acting as scribe for :: Guillermo <PEE PITTMAN - Last Filed: 03/26/17 10:34>
[2017-03-26 11:05] LABS: ABSOLUTE BASOPHILS # (AUTO) 0.1 10^3/uL (0.0-0.2); ABSOLUTE EOSINOPHILS # (AUTO) 0.3 10^3/uL (0.0-0.6); ABSOLUTE LYMPHOCYTES (AUTO) 0.7 10^3/uL (0.5-4.7); ABSOLUTE MONOCYTES (AUTO) 0.4 10^3/uL (0.1-1.4); ABSOLUTE NEUT (AUTO) 5.6 10^3/uL (1.7-8.2); BASOPHILS % (AUTO) 0.7 % (0-2); EOSINOPHILS % (AUTO) 4.3 % (0-6); HEMATOCRIT 35.1 % (36.0-47.0); HEMOGLOBIN 11.1 g/dL (12.0-15.5); HGB HCT DIFFERENCE -1.8; LYMPHOCYTES % (AUTO) 9.7 % (13-45); MEAN CORPUSCULAR HEMOGLOBIN 29.8 pg (27.0-33.4); MEAN CORPUSCULAR HGB CONC 31.6 g/dL (32.0-36.0); MEAN CORPUSCULAR VOLUME 95 fl (80-97); MONOCYTES % (AUTO) 5.9 % (3-13); RED BLOOD COUNT 3.71 10^6/uL (3.72-5.28); RED CELL DISTRIBUTION WIDTH 16.2 % (11.5-14.0); SEGMENTED NEUTROPHILS % (AUTO) 79.4 % (42-78)
--- NOTE | 2017-03-26 11:45 | RADIOLOGY REPORT (SQ) ---
EXAM DESCRIPTION: CHEST PA/LAT COMPLETED DATE/TIME: 03/26/2017 11:08 am REASON FOR STUDY: sob COMPARISON: CT chest 01/18/2017 Two-view chest 09/13/2016 EXAM PARAMETERS: NUMBER OF VIEWS: two views TECHNIQUE: Digital Frontal and Lateral radiographic views of the chest acquired. RADIATION DOSE: NA LIMITATIONS: Morbid obesity FINDINGS: LUNGS AND PLEURA: Bandlike atelectasis in the right upper lobe, and lingula. No fluffy alveolar infiltrates worrisome for edema or pneumonia. MEDIASTINUM AND HILAR STRUCTURES: No masses or contour abnormalities. HEART AND VASCULAR STRUCTURES: Stable moderate cardiomegaly BONES: No acute findings. HARDWARE: None in the chest. OTHER: No other significant finding. IMPRESSION: Bandlike atelectasis. TECHNICAL DOCUMENTATION: JOB ID: [id number] [employer]- All Rights Reserved
--- NOTE | 2017-03-26 13:32 | RADIOLOGY REPORT (SQ) ---
EXAM DESCRIPTION: VENOUS UNILATERAL LOWER COMPLETED DATE/TIME: 03/26/2017 1:10 pm REASON FOR STUDY: lle pain swelling COMPARISON: None. TECHNIQUE: Dynamic and static castellon scale and color images acquired of the left leg venous system. Se lected spectral images acquired with additional compression and augmentation maneuvers. The contralat eral common femoral vein and saphenofemoral junction were also imaged. Images stored on PACS. LIMITATIONS: None. FINDINGS: LEFT COMMON FEMORAL: Normal phasicity, compression and augmentation. No visualized echogenic material on g ray scale. No defects on color images. FEMORAL: Normal compression and augmentation. No visualized echogenic material on castellon scale. No defe cts on color images. POPLITEAL: Normal compression, augmentation. No visualized echogenic material on castellon scale. No defec ts on color images. CALF VESSELS: Normal compression, augmentation. No visualized echogenic material on castellon scale. No de fects on color images. GSV and SSV: Normal compression, augmentation. No visualized echogenic material on castellon scale. No def ects on color images. ANY DEEP VENOUS INSUFFICIENCY: Not evaluated. ANY EVIDENCE OF POPLITEAL CYST: No. OTHER: No other significant finding. RIGHT COMMON FEMORAL VEIN AND SAPHENOFEMORAL JUNCTION: Normal phasicity, compression and augmentation. No visualized echogenic material on castellon scale. No de fects on color images. IMPRESSION: NO EVIDENCE OF DVT OR SVT IN THE LEFT LEG. TECHNICAL DOCUMENTATION: JOB ID: [id number] [employer]- All Rights Reserved
[2017-03-26] MEDS ORDERED: CLINDAMYCIN HCL 150 MG CAPSULE PO ONE (14:35)
[2017-03-26 14:39] LABS: ALANINE AMINOTRANSFERASE 21 U/L (9-52); ALBUMIN 2.9 g/dL (3.5-5.0); ALKALINE PHOSPHATASE 171 U/L (38-126); ANION GAP 6 (5-19); ASPARTATE AMINO TRANSFERASE 15 U/L (14-36); BILIRUBIN,DIRECT 0.3 mg/dL (0.0-0.4); BILIRUBIN,TOTAL 0.4 mg/dL (0.2-1.3); BLOOD UREA NITROGEN 27 mg/dL (7-20); CALCIUM 8.7 mg/dL (8.4-10.2); CARBON DIOXIDE 30 mmol/L (22-30); CHLORIDE 104 mmol/L (98-107); CREATININE RESULT 1.02 mg/dL (0.52-1.25); GLUCOSE 101 mg/dL (75-110); POTASSIUM 5.4 mmol/L (3.6-5.0); SODIUM 139.5 mmol/L (137-145); TOTAL PROTEIN 5.9 g/dL (6.3-8.2)
[2017-03-26 14:46] LABS: CREATINE KINASE MB 0.44 ng/mL (<4.55)
[2017-03-26 14:47] LABS: TROPONIN I < 0.012 ng/mL
[2017-03-26 15:42] VITALS: BP 112/81
== END 2017-03-26 15:42 | disposition home or self-care (01) ==
LOC: ER 10:05
DX: L03.114 Cellulitis of left upper limb (principal); R60.0 Localized edema; M79.89 Other specified soft tissue disorders; M79.602 Pain in left arm; R06.00 Dyspnea, unspecified; Z79.899 Other long term (current) drug therapy
CPT/HCPCS: 99284; 36415; 82553; 85025; 80053; 84484; 93971; 71020; A9270

== ENCOUNTER 2017-07-10 12:09 | Inpatient (IN) | payer MEDICARE, MEDICAID ==
[2017-07-10] MEDS ORDERED: ALBUTEROL SULFATE 0.083% NEB 2.5 MG/3 ML AMPUL NEB ONE (12:34)
[2017-07-10] MEDS ORDERED: IPRATROPIUM/ALBUTEROL 0.5-2.5 MG/3 ML AMPUL NEB ONE (12:34)
--- NOTE | 2017-07-10 12:38 | ER Document Report ---
ED General - General Mode of Arrival: Wheelchair Information source: Patient TRAVEL OUTSIDE OF THE [place] IN LAST 30 DAYS: No - HPI Onset: Other - 2 days ago <JI CASTILLO - Last Filed: 07/10/17 18:59> <ROSS BARON - Last Filed: 07/10/17 19:11> - General Chief Complaint: Shortness Of Breath Stated Complaint: SHORTNESS OF BREATH Time Seen by Provider: 07/10/17 12:18 Notes: Patient is a 72 year old female with a history of COPD, CHF, and HTN presents to the emergency department via EMS complaining of shortness of breath and onset 2 days ago. Patient states she normally uses oxygen and recently turned her oxygen up from 2L to 4L. Patients associated symptoms include chest pain which she describes as a tightness and cough. Patient denies any fever or vomiting. Patient was given 125 mL of Solu Medrol by EMS. (JI CASTILLO) - Related Data Allergies/Adverse Reactions: codeine [Codeine] Allergy (Verified 03/26/17 13:02) demeclocycline HCl [From Declomycin] Allergy (Verified 03/26/17 13:02) oxaprozin [From Daypro] Allergy (Verified 03/26/17 13:02) Home Medications: Current Home Medications Aspirin [Aspirin EC] 81 mg PO DAILY 07/10/17 [History] Benazepril HCl [Lotensin 10 mg Tablet] 10 mg PO DAILY 07/10/17 [History] Cholecalciferol (Vitamin D3) [Vitamin D3 1000 Unit Tablet] 1,000 unit PO DAILY 07/10/17 [History] Citalopram Hydrobromide [Celexa 20 mg Tablet] 20 mg PO DAILY 07/10/17 [History] Fluticasone/Salmeterol [Advair 250-50 Diskus 28 dose] 1 puff IH Q12 07/10/17 [ History] Hydroxyzine HCl [Atarax 10 mg Tablet] 10 mg PO Q6H 07/10/17 [History] Montelukast Sodium [Singulair 10 mg Tablet] 10 mg PO QPM 07/10/17 [History] Omeprazole 20 mg PO DAILY 07/10/17 [History] Oxybutynin Chloride [Ditropan 5 mg Tablet] 5 mg PO BID 07/10/17 [History] Torsemide [Demadex 20 mg Tablet] 20 mg PO DAILY@1300 07/10/17 [History] Past Medical History - General Information source: Patient - Social History Smoking Status: Never Smoker Cigarette use (# per day): No Chew tobacco use (# tins/day): No Smoking Education Provided: No Frequency of alcohol use: None Family History: CAD, DM - Past Medical History Cardiac Medical History: Reports: Hx Congestive Heart Failure - 2/4 LVDD, normal EF, Hx Hypercholesterolemia, Hx Hypertension Pulmonary Medical History: Reports: Hx Asthma, Hx COPD - Home oxygen dependent 3.5 L nasal cannula, Hx Pneumonia Musculoskeltal Medical History: Reports Hx Arthritis Past Surgical History: Reports: Hx Cholecystectomy, Hx Gastric Bypass Surgery, Hx Hysterectomy, Other - Reduction mammoplasty - Immunizations Hx Diphtheria, Pertussis, Tetanus Vaccination: Yes Hx Pneumococcal Vaccination: 08/22/14 <JI CASTILLO - Last Filed: 07/10/17 18:59> Review of Systems - Review of Systems Constitutional: No symptoms reported EENT: No symptoms reported Cardiovascular: See HPI, Chest pain Respiratory: See HPI, Cough, Short of breath Gastrointestinal: No symptoms reported Genitourinary: No symptoms reported Female Genitourinary: No symptoms reported Musculoskeletal: No symptoms reported Skin: No symptoms reported Hematologic/Lymphatic: No symptoms reported Neurological/Psychological: No symptoms reported -: Yes All other systems reviewed and negative <JI CASTILLO - Last Filed: 07/10/17 18:59> Physical Exam <JI CASTILLO - Last Filed: 07/10/17 18:59> <ROSS BARON - Last Filed: 07/10/17 19:11> - Vital signs Vitals: Pulse Ox 86 L 07/10/17 12:16 - Notes Notes: GENERAL: Alert, interacts well. HEAD: Normocephalic, atraumatic. EYES: Pupils equal, round, and reactive to light. Extraocular movements intact. ENT: Oral mucosa moist, tongue midline. NECK: Full range of motion. Supple. Trachea midline. LUNGS: Shortness of breath, on supplemental oxygen. Expiratory wheezes. Poor air movement. 3-4 word sentences. HEART: Tachycardic. No murmurs, gallops, or rubs. ABDOMEN: Soft, non-tender. Non-distended. Bowel sounds present in all 4 quadrants. Morbidly obese. EXTREMITIES: Moves all 4 extremities spontaneously. 2+ pitting edema on RLE, 3+ pitting edema on LLE, radial and dorsalis pedis pulses 2/4 bilaterally. No cyanosis. NEUROLOGICAL: Alert and oriented x3. Normal speech. PSYCH: Normal affect, normal mood. SKIN: Warm, dry, erythema to the lateral aspect of left calf. No rashes or lesions noted. (JI CASTILLO) Course - Laboratory Result Diagrams: 07/10/17 12:30 07/10/17 12:30 <JI CASTILLO - Last Filed: 07/10/17 18:59> - Laboratory Result Diagrams: 07/10/17 12:30 07/10/17 12:30 <ROSS BARON - Last Filed: 07/10/17 19:11> - Re-evaluation Re-evalutation: 07/10/17 14:33 CBC shows anemia with hemoglobin 9.3, venous blood gas shows respiratory acidosis with a pH of 7.21, PCO2 of 89, chemistries show acute renal failure with a BUN of 41 and creatinine 1.28, mildly elevated potassium 5.3 not causing any EKG changes, cardiac enzymes negative, proBNP elevated at 5200, chest x-ray confirms vascular congestion. Clinically patient look quite short of breath so she was started on breathing treatments, Lasix and BiPAP. Patient has improved with the breathing treatments and the BiPAP, feeling somewhat more comfortable. Further examination after Santiago catheter was placed did reveal skin breakdown in her inguinal folds, this is treated with Aquaphor. Discussed the case with Dr. Mcneal from the hospitalist service who agreed to admit the patient to his service on the [facility] in admission status. (ROSS BARON) - Vital Signs Vital signs: Temp Pulse Resp BP Pulse Ox 97.7 F 68 16 133/46 H 95 07/10/17 16:30 07/10/17 16:30 07/10/17 16:30 07/10/17 16:30 07/10/17 16:30 - Laboratory Laboratory results interpreted by me: 07/10/17 07/10/17 07/10/17 12:30 12:30 12:30 RBC 3.23 L Hgb 9.3 L Hct 30.7 L MCHC 30.3 L RDW 16.6 H Seg Neutrophils % 79.7 H Lymphocytes % 11.0 L VBG pH VBG pCO2 VBG HCO3 Sodium 149.7 H Potassium 5.3 H Carbon Dioxide 36 H BUN 41 H Creatinine 1.28 H Est GFR ( Amer) 49 L Est GFR (Non-Af Amer) 41 L Glucose 124 H Direct Bilirubin 0.6 H Alkaline Phosphatase 137 H Creatine Kinase 26 L NT-Pro-B Natriuret Pep 5200 H Total Protein 6.1 L Albumin 3.1 L 07/10/17 12:30 RBC Hgb Hct MCHC RDW Seg Neutrophils % Lymphocytes % VBG pH 7.21 L VBG pCO2 89.0 H* VBG HCO3 34.8 H Sodium Potassium Carbon Dioxide BUN Creatinine Est GFR ( Amer) Est GFR (Non-Af Amer) Glucose Direct Bilirubin Alkaline Phosphatase Creatine Kinase NT-Pro-B Natriuret Pep Total Protein Albumin - EKG Interpretation by Me Additional EKG results interpreted by me: 07/10/17 14:34 EKG shows sinus rhythm at a rate of 64, left axis deviation, interventricular conduction delay, no ST segment elevations or depressions, nonspecific T-wave flattening and inversions per my interpretation. (ROSS BARON) Critical Care Note - Critical Care Note Total time excluding time spent on procedures (mins): 45 <ROSS BARON - Last Filed: 07/10/17 19:11> Discharge <JI CASTILLO - Last Filed: 07/10/17 18:59> - Discharge Admitting Provider: Hospitalist - [place] [facility] Admitted: [facility] <ROSS BARON - Last Filed: 07/10/17 19:11> - Discharge Clinical Impression: Acute diastolic CHF (congestive heart failure), Acute on chronic respiratory failure with hypoxemia, Acute respiratory acidosis Acute renal failure Qualifiers: Acute renal failure type: unspecified Qualified Code(s): N17.9 - Acute kidney failure, unspecified Condition: Serious Disposition: ADMITTED INPATIENT Scribe Attestation: 07/10/17 19:11 I personally performed the services described in the documentation, reviewed and edited the documentation which was dictated to the scribe in my presence, and it accurately records my words and actions. (ROSS BARON) Scribe Documentation - Scribe Written by Scribe:: Therese Larsen, 07/10/2017 14:00 acting as scribe for :: Callie <JI CASTILLO - Last Filed: 07/10/17 18:59>
[2017-07-10 12:55] LABS: VENOUS BLOOD BASE EXCESS 3.8 mmol/L; VENOUS BLOOD HCO3 34.8 mmol/L (20-32); VENOUS BLOOD PH 7.21 (7.30-7.42)
[2017-07-10 12:56] LABS: ABSOLUTE EOSINOPHILS # (AUTO) 0.1 10^3/uL (0.0-0.6); ABSOLUTE LYMPHOCYTES (AUTO) 0.6 10^3/uL (0.5-4.7); ABSOLUTE MONOCYTES (AUTO) 0.4 10^3/uL (0.1-1.4); ABSOLUTE NEUT (AUTO) 4.2 10^3/uL (1.7-8.2); BASOPHILS % (AUTO) 0.7 % (0-2); HEMATOCRIT 30.7 % (36.0-47.0); HEMOGLOBIN 9.3 g/dL (12.0-15.5); HGB HCT DIFFERENCE -2.8; MEAN CORPUSCULAR HEMOGLOBIN 28.8 pg (27.0-33.4); MEAN CORPUSCULAR HGB CONC 30.3 g/dL (32.0-36.0); MEAN CORPUSCULAR VOLUME 95 fl (80-97); MONOCYTES % (AUTO) 6.6 % (3-13); RED BLOOD COUNT 3.23 10^6/uL (3.72-5.28); RED CELL DISTRIBUTION WIDTH 16.6 % (11.5-14.0); SEGMENTED NEUTROPHILS % (AUTO) 79.7 % (42-78); WHITE BLOOD COUNT 5.3 10^3/uL (4.0-10.5)
[2017-07-10 13:11] LABS: ALANINE AMINOTRANSFERASE 32 U/L (9-52); ALBUMIN 3.1 g/dL (3.5-5.0); ALKALINE PHOSPHATASE 137 U/L (38-126); ANION GAP 8 (5-19); ASPARTATE AMINO TRANSFERASE 17 U/L (14-36); BILIRUBIN,DIRECT 0.6 mg/dL (0.0-0.4); BILIRUBIN,TOTAL 0.7 mg/dL (0.2-1.3); BLOOD UREA NITROGEN 41 mg/dL (7-20); CALCIUM 8.6 mg/dL (8.4-10.2); CARBON DIOXIDE 36 mmol/L (22-30); CHLORIDE 106 mmol/L (98-107); CREATINE KINASE 26 U/L (30-135); CREATININE RESULT 1.28 mg/dL (0.52-1.25); GLUCOSE 124 mg/dL (75-110); POTASSIUM 5.3 mmol/L (3.6-5.0); SODIUM 149.7 mmol/L (137-145); TOTAL PROTEIN 6.1 g/dL (6.3-8.2)
[2017-07-10 13:23] LABS: CREATINE KINASE MB 0.86 ng/mL (<4.55)
[2017-07-10 13:25] LABS: TROPONIN I < 0.012 ng/mL
--- NOTE | 2017-07-10 13:28 | RADIOLOGY REPORT (SQ) ---
EXAM DESCRIPTION: CHEST SINGLE VIEW COMPLETED DATE/TIME: 07/10/2017 1:18 pm REASON FOR STUDY: cough, SOB, hypoxia COMPARISON: 03/26/2017. NUMBER OF VIEWS: One view. TECHNIQUE: Single frontal radiographic view of the chest acquired. LIMITATIONS: None. FINDINGS: LUNGS AND PLEURA: No opacities, masses or pneumothorax. No pleural effusion. MEDIASTINUM AND HILAR STRUCTURES: No masses or contour abnormality. HEART AND VASCULATURE: Cardiac enlargement. Vascular congestion. BONES: No acute findings. HARDWARE: None in the chest. OTHER: No other significant finding. IMPRESSION: CARDIAC ENLARGEMENT. VASCULAR CONGESTION. TECHNICAL DOCUMENTATION: JOB ID: [id number] [employer]- All Rights Reserved
[2017-07-10] MEDS ORDERED: FUROSEMIDE INJ/PF 40 MG/4 ML SDV IV ONE (13:35)
[2017-07-10] MEDS ORDERED: ACETAMINOPHEN 325 MG TABLET PO PRN (15:46)
[2017-07-10] MEDS ORDERED: ALBUTEROL SULFATE 0.083% NEB 2.5 MG/3 ML AMPUL NEB PRN (15:46)
[2017-07-10] MEDS ORDERED: ONDANSETRON HCL INJ/PF 4 MG/2 ML SDV IV PRN (15:46)
[2017-07-10] MEDS ORDERED: INFLUENZA ADLT QUAD (36MOS+) 2017-18 VAC 0.5 ML SYR IM PRN (17:02)
[2017-07-10] MEDS ORDERED: AZITHROMYCIN 250 MG TABLET PO SCH (17:04)
--- NOTE | 2017-07-10 17:07 | PDOC H&P ---
History of Present Illness Admission Date/PCP: YARELIS MARTINEZ Patient complains of: Shortness of breath of several days' duration History of Present Illness: ASHLEY COTTRELL is a 72 year old female with history of COPD, chronic hypoxic respiratory failure, RYLAN, moderate to severe pulmonary hypertension, hypertension, chronic diastolic heart failure (echo of 10/2016 with low normal LVEF, great 2/4 diastolic dysfunction), morbid obesity status previous gastric bypass surgery, iron deficiency anemia, who presented from home with worsening shortness of breath of several days' duration. Apparently the patient has been having some shortness of breath associated with generalized weakness. She has had to increase her oxygen from baseline 2L/min to up to 4L/min. She admits to having a mildly productive cough. She denies chest pain. She denies nausea vomiting diarrhea, abdominal pain. She denies any focal neurologic deficit. Her sister who is in the emergency room, informs me that the patient was supposed to have a BiPAP delivered sometime next week for her obstructive sleep apnea. Next In the emergency room, the patient received several nebulizer treatment, as well as steroids, and was placed on BiPAP. At the time of my exam the patient admits to generalized weakness. Chest x-ray showed vascular congestion. BNP was elevated. Past Medical History Cardiac Medical History: Reports: Congestive Heart Failure - 2/4 LVDD, normal EF , Hyperlipidema, Hypertension Denies: Coronary Artery Disease, Myocardial Infarction Pulmonary Medical History: Reports: Asthma, Chronic Obstructive Pulmonary Disease (COPD) - Home oxygen dependent 3.5 L nasal cannula, Pneumonia Denies: Bronchitis Neurological Medical History: Denies: Seizures Endocrine Medical History: Denies: Diabetes Mellitus Type 1, Diabetes Mellitus Type 2 Musculoskeltal Medical History: Reports: Arthritis Hematology: Reports: Anemia - 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 Past Surgical History Past Surgical History: Reports: Cholecystectomy, Gastric Bypass Surgery, Hysterectomy, Other - Reduction mammoplasty Social History Information Source: Patient, Relative, Emergency Med Personnel Lives with: Family Smoking Status: Never Smoker - She was exposed to heavy secondhand smoke Frequency of Alcohol Use: None Hx Recreational Drug Use: No Hx Prescription Drug Abuse: No - Advance Directive Resuscitation Status: Full Code Family History Family History: CAD, DM Parental Family History Reviewed: Yes Children Family History Reviewed: Yes Sibling(s) Family History Reviewed.: Yes Medication/Allergy Home Medications: Aspirin [Aspirin EC] 81 mg PO DAILY 07/10/17 Benazepril HCl [Lotensin 10 mg Tablet] 10 mg PO DAILY 07/10/17 Cholecalciferol (Vitamin D3) [Vitamin D3 1000 Unit Tablet] 1,000 unit PO DAILY 07/10/17 Citalopram Hydrobromide [Celexa 20 mg Tablet] 20 mg PO DAILY 07/10/17 Fluticasone/Salmeterol [Advair 250-50 Diskus 28 dose] 1 puff IH Q12 07/10/17 Hydroxyzine HCl [Atarax 10 mg Tablet] 10 mg PO Q6H 07/10/17 Montelukast Sodium [Singulair 10 mg Tablet] 10 mg PO QPM 07/10/17 Omeprazole 20 mg PO DAILY 07/10/17 Oxybutynin Chloride [Ditropan 5 mg Tablet] 5 mg PO BID 07/10/17 Torsemide [Demadex 20 mg Tablet] 20 mg PO DAILY@1300 07/10/17 Allergies/Adverse Reactions: codeine [Codeine] Allergy (Verified 03/26/17 13:02) demeclocycline HCl [From Declomycin] Allergy (Verified 03/26/17 13:02) oxaprozin [From Daypro] Allergy (Verified 03/26/17 13:02) Review of Systems All systems: reviewed and no additional remarkable complaints except as stated Physical Exam Vital Signs: Temp Pulse Resp BP Pulse Ox 21 H 116/98 H 95 07/10/17 12:34 07/10/17 14:34 07/10/17 14:34 General appearance: PRESENT: cooperative, mild distress, obese Head exam: PRESENT: atraumatic, normocephalic Eye exam: PRESENT: conjunctiva pink, EOMI Mouth exam: PRESENT: moist, tongue midline Teeth exam: PRESENT: poor dentation Respiratory exam: PRESENT: prolonged expiratory phas, rhonchi, wheezes Cardiovascular exam: PRESENT: RRR, +S1, systolic murmur Pulses: PRESENT: normal carotid pulses, normal radial pulses, +2 pedal pulses bilateral - Chronic stasis edema, with mild erythema of the left lower extremity GI/Abdominal exam: PRESENT: normal bowel sounds, soft. ABSENT: ascites, diminished bowel sounds, distended, firm, guarding, hernia, hyperactive bowel sounds, hypoactive bowel sounds, mass, Tristan's sign, organolmegaly, rebound, rigid, tenderness, other Rectal exam: PRESENT: deferred Extremities exam: PRESENT: +1 edema Musculoskeletal exam: PRESENT: ambulatory, full ROM Neurological exam: PRESENT: awake, oriented to person, oriented to place, oriented to time, oriented to situation, CN II-XII grossly intact Psychiatric exam: PRESENT: anxious Skin exam: PRESENT: dry, warm, other - Mild erythema of the left lower extremity Results Laboratory Results: 07/10/17 12:30 07/10/17 12:30 07/10/17 07/10/17 07/10/17 12:30 12:30 12:30 WBC 5.3 RBC 3.23 L Hgb 9.3 L Hct 30.7 L MCV 95 MCH 28.8 MCHC 30.3 L RDW 16.6 H Plt Count 184 Seg Neutrophils % 79.7 H Lymphocytes % 11.0 L Monocytes % 6.6 Eosinophils % 2.0 Basophils % 0.7 Absolute Neutrophils 4.2 Absolute Lymphocytes 0.6 Absolute Monocytes 0.4 Absolute Eosinophils 0.1 Absolute Basophils 0.0 VBG pH 7.21 L VBG pCO2 89.0 H* VBG HCO3 34.8 H VBG Base Excess 3.8 Sodium 149.7 H Potassium 5.3 H Chloride 106 Carbon Dioxide 36 H Anion Gap 8 BUN 41 H Creatinine 1.28 H Est GFR ( Amer) 49 L Est GFR (Non-Af Amer) 41 L Glucose 124 H Calcium 8.6 Total Bilirubin 0.7 AST 17 ALT 32 Alkaline Phosphatase 137 H Total Protein 6.1 L Albumin 3.1 L 07/10/17 07/10/17 12:30 12:30 Creatine Kinase 26 L CK-MB (CK-2) 0.86 Troponin I < 0.012 NT-Pro-B Natriuret Pep 5200 H Impressions: Chest X-Ray 07/10/17 12:34 IMPRESSION: CARDIAC ENLARGEMENT. VASCULAR CONGESTION. Status: Image reviewed by me Assessment & Plan - Diagnosis (1) Acute on chronic respiratory failure with hypoxemia Is this a current diagnosis for this admission?: Yes Plan: Most likely multifactorial: COPD, obstructive sleep apnea, heart failure, morbid obesity. Patient's BiPAP supposed to be delivered next week. Maintain on BiPAP. Continue supplemental oxygen and wean to baseline as able (2) Acute diastolic CHF (congestive heart failure) Is this a current diagnosis for this admission?: Yes Plan: Follow serial cardiac enzymes, continue furosemide 40 mg IV twice daily (3) Acute renal failure Qualifiers: Acute renal failure type: unspecified Qualified Code(s): N17.9 - Acute kidney failure, unspecified Is this a current diagnosis for this admission?: Yes Plan: Likely due to congestive heart failure. Monitor closely with diuresis (4) COPD (chronic obstructive pulmonary disease) Qualifiers: COPD type: COPD with acute exacerbation Qualified Code(s): J44.1 - Chronic obstructive pulmonary disease with (acute) exacerbation Is this a current diagnosis for this admission?: Yes Plan: Patient was exposed heavily to secondhand smoke. Continue nebulizer treatment, oral prednisone, and oral azithromycin (5) Hypertension Is this a current diagnosis for this admission?: Yes Plan: Blood pressure is at goal. Continue current management (6) Morbid (severe) obesity due to excess calories Is this a current diagnosis for this admission?: Yes Plan: Morbid obesity due to excess caloric intake, and the patient who is status post gastric bypass surgery. Outpatient weight loss recommended (7) Hypernatremia Is this a current diagnosis for this admission?: Yes Plan: Sodium 149. We will increase free water intake while continuing IV diuretics (8) DVT prophylaxis Is this a current diagnosis for this admission?: Yes Plan: Subcutaneous Lovenox - Time Time Spent: Greater than 70 Minutes - I have reviewed the diagnosis, prognosis, plan of care was reviewed with patient and patient's sister was by bedside. I have addressed their concerns and questions. They have expressed a clear understanding of these plan of care Medications reviewed and adjusted accordingly: Yes Anticipated discharge: Home with Homehealth - Inpatient Certification Based on my medical assessment, after consideration of the patient's comorbidities, presenting symptoms, or acuity I expect that the services needed warrant INPATIENT care.: Yes Medical Necessity: Need For Continuous Telemetry Monitoring, Risk of Complication if Not Cared For in Hospital
[2017-07-10] MEDS ORDERED: PREDNISONE 20 MG TABLET PO SCH (17:15)
[2017-07-10] MEDS: IPRATROPIUM/ALBUTEROL 0.5-2.5 MG/3 ML AMPUL NEB SCH ×2 (18:02→20:17)
[2017-07-10] MEDS: PANTOT AC/MIN OIL/PET HY-PHL OINT 50 GM TOP SCH (18:32)
[2017-07-10] MEDS: MONTELUKAST SODIUM 10 MG TABLET PO SCH (18:38)
[2017-07-10] MEDS: LANSOPRAZOLE 15 MG TAB.RAP.DR PO SCH (18:38)
[2017-07-10] MEDS: FUROSEMIDE INJ/PF 40 MG/4 ML SDV IV SCH (18:39)
[2017-07-10] MEDS ORDERED: AZITHROMYCIN 250 MG TABLET PO ONE (18:45)
[2017-07-10 19:00] LABS: ARTERIAL BLOOD BASE EXCESS 9.6 mmol/L; ARTERIAL BLOOD O2 SATURATION 84.9 % (94-98)
[2017-07-10] MEDS ORDERED: PREDNISONE 20 MG TABLET PO ONE (19:00)
[2017-07-10] MEDS ORDERED: FLUTICASONE/SALMETEROL DISKUS 250-50 MCG/DOSE IH ONE (21:55)
[2017-07-10] MEDS ORDERED: DOXYCYCLINE HYCLATE 100 MG TABLET PO SCH (22:00)
[2017-07-10] MEDS: FLUTICASONE/SALMETEROL DISKUS 250-50 MCG/DOSE IH SCH (22:11)
[2017-07-11] MEDS: FUROSEMIDE INJ/PF 40 MG/4 ML SDV IV SCH (05:30)
[2017-07-11] MEDS: LANSOPRAZOLE 15 MG TAB.RAP.DR PO SCH ×2 (05:31→17:18)
[2017-07-11 07:09] LABS: HEMATOCRIT 30.8 % (36.0-47.0); HEMOGLOBIN 9.6 g/dL (12.0-15.5); MEAN CORPUSCULAR HEMOGLOBIN 28.5 pg (27.0-33.4); MEAN CORPUSCULAR VOLUME 92 fl (80-97); RED BLOOD COUNT 3.36 10^6/uL (3.72-5.28); RED CELL DISTRIBUTION WIDTH 16.1 % (11.5-14.0); WHITE BLOOD COUNT 3.7 10^3/uL (4.0-10.5)
[2017-07-11 07:25] LABS: ARTERIAL BLOOD BASE EXCESS 7.1 mmol/L; ARTERIAL BLOOD O2 SATURATION 91.1 % (94-98)
[2017-07-11 07:34] LABS: ANION GAP 8 (5-19); BLOOD UREA NITROGEN 43 mg/dL (7-20); CALCIUM 8.4 mg/dL (8.4-10.2); CARBON DIOXIDE 35 mmol/L (22-30); CHLORIDE 105 mmol/L (98-107); CREATININE RESULT 1.31 mg/dL (0.52-1.25); GLUCOSE 143 mg/dL (75-110); MAGNESIUM 2.3 mg/dL (1.6-2.3); POTASSIUM 5.8 mmol/L (3.6-5.0); SODIUM 147.5 mmol/L (137-145)
[2017-07-11 07:48] LABS: BASOPHILS % (MANUAL) 0 % (0-2); EOSINOPHILS % (MANUAL) 0 % (0-6); LYMPHOCYTES % (MANUAL) 4 % (13-45); TOTAL CELLS COUNTED 100; TROPONIN I 0.014 ng/mL
[2017-07-11 07:49] LABS: ANISOCYTOSIS 1+; HYPOCHROMASIA SLIGHT; POIKILOCYTOSIS SLIGHT; TEAR DROP CELLS SLIGHT
[2017-07-11] MEDS: IPRATROPIUM/ALBUTEROL 0.5-2.5 MG/3 ML AMPUL NEB SCH ×4 (08:55→20:39)
--- NOTE | 2017-07-11 09:10 | EKG REPORT ---
SEVERITY:- ABNORMAL ECG - SINUS RHYTHM BORDERLINE LEFT AXIS DEVIATION ABNORMAL T, CONSIDER ISCHEMIA, ANTERIOR LEADS : Confirmed by: Tasneem Martinez 11-Jul-2017 09:09:46
--- NOTE | 2017-07-11 09:10 | EKG REPORT ---
SEVERITY:- BORDERLINE ECG - SINUS RHYTHM BORDERLINE T ABNORMALITIES, ANTERIOR LEADS : Confirmed by: Tasneem Martinez 11-Jul-2017 09:09:59
[2017-07-11] MEDS ORDERED: LANSOPRAZOLE 15 MG TAB.RAP.DR PO SCH (10:00)
[2017-07-11] MEDS ORDERED: BENAZEPRIL HCL 10 MG TABLET PO SCH (10:00)
[2017-07-11] MEDS: PANTOT AC/MIN OIL/PET HY-PHL OINT 50 GM TOP SCH (10:02)
[2017-07-11] MEDS: PREDNISONE 20 MG TABLET PO SCH (10:15)
[2017-07-11] MEDS: FLUTICASONE/SALMETEROL DISKUS 250-50 MCG/DOSE IH SCH ×2 (10:15→23:08)
[2017-07-11] MEDS: CITALOPRAM HYDROBROMIDE 20 MG TABLET PO SCH (10:15)
[2017-07-11] MEDS: AZITHROMYCIN 250 MG TABLET PO SCH (10:16)
[2017-07-11] MEDS: DOCUSATE SODIUM 100 MG CAPSULE PO SCH (10:16)
[2017-07-11] MEDS: ASPIRIN 81 MG TABLET, ENT COATED PO SCH (10:16)
[2017-07-11] MEDS ORDERED: ONDANSETRON HCL INJ/PF 4 MG/2 ML SDV IV PRN (11:00)
[2017-07-11] MEDS ORDERED: ACETAMINOPHEN 325 MG TABLET PO PRN (11:00)
[2017-07-11] MEDS ORDERED: SODIUM POLYSTYRENE SULFONATE 15 GM/60 ML PO ONE (11:27)
[2017-07-11] MEDS: ENOXAPARIN SODIUM INJ 40 MG/0.4 ML DISP.SYRIN SUBCUT SCH (11:50)
[2017-07-11 12:54] LABS: HEMATOCRIT 30.4 % (36.0-47.0); HEMOGLOBIN 9.9 g/dL (12.0-15.5); HGB HCT DIFFERENCE -0.7; MEAN CORPUSCULAR HEMOGLOBIN 30.1 pg (27.0-33.4); MEAN CORPUSCULAR HGB CONC 32.8 g/dL (32.0-36.0); MEAN CORPUSCULAR VOLUME 92 fl (80-97); RED CELL DISTRIBUTION WIDTH 16.5 % (11.5-14.0); WHITE BLOOD COUNT 6.4 10^3/uL (4.0-10.5)
[2017-07-11 13:21] LABS: ANION GAP 6 (5-19); BLOOD UREA NITROGEN 44 mg/dL (7-20); CALCIUM 8.2 mg/dL (8.4-10.2); CARBON DIOXIDE 38 mmol/L (22-30); CHLORIDE 103 mmol/L (98-107); GLUCOSE 114 mg/dL (75-110); POTASSIUM 5.5 mmol/L (3.6-5.0); SODIUM 147.4 mmol/L (137-145)
--- NOTE | 2017-07-11 14:50 | PDOC PROGRESS REPORT ---
Subjective Progress Note for:: 07/11/17 Subjective:: Day 1 of hospitalization. Follow-up visit for acute on chronic respiratory failure 72-year-old female with history of COPD, chronic hypoxic respiratory failure, RYLAN, moderate to severe pulmonary hypertension, HTN, chronic diastolic CHF, morbid obesity A/P gastric bypass surgery, iron deficiency anemia. She presented from home with worsening shortness of breath of several days' duration. She had had to increase her oxygen from baseline 2 L/min to 4 L/min. Additionally she complains of mildly productive cough. She was started on several nebulizer treatment as well as steroids and was placed on BiPAP in the emergency room. Her chest x-ray showed vascular congestion. BNP was elevated. She was maintained on BiPAP overnight and reports feeling better this morning. Of note, the patient's home BiPAP was supposed to be delivered this this week Patient reports feeling better: States that shortness of breath is better. Denies chest pain. Denies nausea, vomiting, diarrhea, or any focal neurologic deficit. She remains afebrile. Physical Exam Vital Signs: Temp Pulse Resp BP Pulse Ox 98.4 F 71 21 H 110/51 L 96 07/11/17 10:55 07/11/17 10:55 07/11/17 10:55 07/11/17 10:55 07/11/17 10:55 Intake & Output 07/10/17 07/11/17 07/12/17 06:59 06:59 06:59 Intake Total 1315 Output Total 2850 Balance -1535 Weight 148.3 kg General appearance: PRESENT: cooperative, mild distress, morbidly obese Head exam: PRESENT: atraumatic, normocephalic Eye exam: PRESENT: conjunctiva pink, EOMI Respiratory exam: PRESENT: decreased breath sounds, rhonchi, symmetrical Cardiovascular exam: PRESENT: RRR, +S1, +S2 Pulses: PRESENT: +2 pedal pulses bilateral GI/Abdominal exam: PRESENT: normal bowel sounds, soft. ABSENT: ascites, diminished bowel sounds, distended, firm, guarding, hernia, hyperactive bowel sounds, hypoactive bowel sounds, mass, Tristan's sign, organolmegaly, rebound, rigid, tenderness, other Extremities exam: PRESENT: +2 edema - Chronic stasis edema, with mild erythema noted on the left Neurological exam: PRESENT: awake, oriented to person, oriented to place, oriented to time, oriented to situation, CN II-XII grossly intact Psychiatric exam: PRESENT: depressed Results Laboratory Results: 07/11/17 06:12 07/11/17 06:12 07/10/17 07/11/17 07/11/17 18:40 06:12 06:12 WBC 3.7 L RBC 3.36 L Hgb 9.6 L Hct 30.8 L MCV 92 MCH 28.5 MCHC 31.0 L RDW 16.1 H Plt Count 122 L Seg Neutrophils % Not Reportable Lymphocytes % Not Reportable Monocytes % Not Reportable Eosinophils % Not Reportable Basophils % Not Reportable Absolute Neutrophils Not Reportable Absolute Lymphocytes Not Reportable Absolute Monocytes Not Reportable Absolute Eosinophils Not Reportable Absolute Basophils Not Reportable Carbonic Acid 2.21 H HCO3/H2CO3 Ratio 17:1 ABG pH 7.33 L ABG pCO2 73.4 H* ABG pO2 55.0 L ABG HCO3 37.6 H ABG O2 Saturation 84.9 L ABG Base Excess 9.6 FiO2 5L Sodium 147.5 H Potassium 5.8 H Chloride 105 Carbon Dioxide 35 H Anion Gap 8 BUN 43 H Creatinine 1.31 H Est GFR ( Amer) 48 L Est GFR (Non-Af Amer) 40 L Glucose 143 H Calcium 8.4 Magnesium 2.3 07/11/17 06:50 WBC RBC Hgb Hct MCV MCH MCHC RDW Plt Count Seg Neutrophils % Lymphocytes % Monocytes % Eosinophils % Basophils % Absolute Neutrophils Absolute Lymphocytes Absolute Monocytes Absolute Eosinophils Absolute Basophils Carbonic Acid 2.07 H HCO3/H2CO3 Ratio 16:1 ABG pH 7.32 L ABG pCO2 68.8 H ABG pO2 67.0 L ABG HCO3 34.9 H ABG O2 Saturation 91.1 L ABG Base Excess 7.1 FiO2 35% Sodium Potassium Chloride Carbon Dioxide Anion Gap BUN Creatinine Est GFR ( Amer) Est GFR (Non-Af Amer) Glucose Calcium Magnesium 07/10/17 07/10/17 07/11/17 16:40 22:00 06:12 Troponin I < 0.012 < 0.012 0.014 NT-Pro-B Natriuret Pep 6370 H Impressions: Chest X-Ray 07/10/17 12:34 IMPRESSION: CARDIAC ENLARGEMENT. VASCULAR CONGESTION. Status: Image reviewed by me Assessment & Plan - Diagnosis (1) Acute on chronic respiratory failure with hypoxemia Is this a current diagnosis for this admission?: Yes Plan: Most likely multifactorial: COPD, obstructive sleep apnea, heart failure, morbid obesity. Patient's BiPAP supposed to be delivered next week. Maintain on BiPAP at night and prn during the day. Continue supplemental oxygen and wean to baseline as able (2) Acute diastolic CHF (congestive heart failure) Is this a current diagnosis for this admission?: Yes Plan: Chest x-ray with vascular congestion, BNP elevated. Serial cardiac enzymes negative. We will switch to furosemide 40 mg orally twice daily (3) COPD (chronic obstructive pulmonary disease) Qualifiers: COPD type: COPD with acute exacerbation Qualified Code(s): J44.1 - Chronic obstructive pulmonary disease with (acute) exacerbation Is this a current diagnosis for this admission?: Yes Plan: Patient was exposed heavily to secondhand smoke. Improving. Continue nebulizer treatment, oral prednisone, and oral azithromycin (4) Acute renal failure Qualifiers: Acute renal failure type: unspecified Qualified Code(s): N17.9 - Acute kidney failure, unspecified Is this a current diagnosis for this admission?: Yes Plan: Likely prerenal in setting of congestive heart failure. Monitor closely with diuresis (5) Hypertension Is this a current diagnosis for this admission?: Yes Plan: Blood pressure is at goal. Continue current management (home Lisinopril held) (6) Morbid (severe) obesity due to excess calories Is this a current diagnosis for this admission?: Yes Plan: Morbid obesity due to excess caloric intake, and the patient who is s/p priorgastric bypass surgery, BMI 56. Outpatient weight loss recommended (7) Hyperkalemia Is this a current diagnosis for this admission?: No Plan: K 5.7. EKG with no peaked T waves. Home lisinopril held. Will give Kayexalate later today (8) Hypernatremia Is this a current diagnosis for this admission?: Yes Plan: Sodium 147 (149). Patient instructed to increase free water intake while continuing diuretics (9) DVT prophylaxis Is this a current diagnosis for this admission?: Yes Plan: Subcutaneous Lovenox - Time Time Spent with patient: 35 or more minutes - Including time taken to review diagnosis and plan of care with patient. I have addressed her concerns and answered her questions. She has expressed clear understanding of the plan of care Anticipated discharge: Home with Homehealth - Inpatient Certification Medical Necessity: Risk of Complication if Not Cared For in Hospital - Plan Summary Plan Summary: Plan to discharge home in 1-2 days. PT/OT to evaluate and treat
[2017-07-11] MEDS ORDERED: FUROSEMIDE 40 MG TABLET PO ONE (15:30)
[2017-07-11] MEDS: MONTELUKAST SODIUM 10 MG TABLET PO SCH (17:18)
[2017-07-11 18:05] LABS: ANION GAP 9 (5-19); BLOOD UREA NITROGEN 48 mg/dL (7-20); CALCIUM 8.2 mg/dL (8.4-10.2); CARBON DIOXIDE 36 mmol/L (22-30); CHLORIDE 103 mmol/L (98-107); GLUCOSE 142 mg/dL (75-110); POTASSIUM 5.2 mmol/L (3.6-5.0); SODIUM 147.7 mmol/L (137-145)
[2017-07-11] MEDS ORDERED: DEXTROSE 5%-WATER 1000 ML 1,000 ML IV PRN (18:26)
[2017-07-11] MEDS: NYSTATIN TOPICAL POWDER 15 GM TP SCH (23:03)
[2017-07-12] MEDS: LANSOPRAZOLE 15 MG TAB.RAP.DR PO SCH ×2 (06:00→17:25)
[2017-07-12] MEDS: IPRATROPIUM/ALBUTEROL 0.5-2.5 MG/3 ML AMPUL NEB SCH ×4 (09:29→19:40)
[2017-07-12] MEDS: DOCUSATE SODIUM 100 MG CAPSULE PO SCH (09:45)
[2017-07-12] MEDS: AZITHROMYCIN 250 MG TABLET PO SCH (09:45)
[2017-07-12] MEDS: CITALOPRAM HYDROBROMIDE 20 MG TABLET PO SCH (09:46)
[2017-07-12] MEDS: ASPIRIN 81 MG TABLET, ENT COATED PO SCH (09:46)
[2017-07-12] MEDS: ENOXAPARIN SODIUM INJ 40 MG/0.4 ML DISP.SYRIN SUBCUT SCH (09:46)
[2017-07-12] MEDS: FLUTICASONE/SALMETEROL DISKUS 250-50 MCG/DOSE IH SCH ×2 (09:46→23:15)
[2017-07-12] MEDS: PREDNISONE 20 MG TABLET PO SCH (09:46)
[2017-07-12] MEDS: NYSTATIN TOPICAL POWDER 15 GM TP SCH ×2 (09:52→23:16)
[2017-07-12] MEDS ORDERED: FUROSEMIDE 40 MG TABLET PO SCH (10:00)
[2017-07-12 12:25] LABS: ANION GAP 9 (5-19); BLOOD UREA NITROGEN 48 mg/dL (7-20); CALCIUM 7.9 mg/dL (8.4-10.2); CARBON DIOXIDE 39 mmol/L (22-30); CHLORIDE 99 mmol/L (98-107); CREATININE RESULT 1.38 mg/dL (0.52-1.25); GLUCOSE 136 mg/dL (75-110); SODIUM 146.5 mmol/L (137-145)
--- NOTE | 2017-07-12 15:07 | PDOC PROGRESS REPORT ---
Subjective Progress Note for:: 07/12/17 Subjective:: Ms Abreu is a 72-year-old female with a history of COPD, chronic hypoxic and hypercapneic respiratory failure, RYLAN, moderate to severe pulmonary hypertension , HTN, chronic diastolic CHF, morbid obesity S/P gastric bypass surgery, and iron deficiency anemia. She presented from home with worsening shortness of breath of several days' duration. She had to increase her oxygen from baseline 2 L/min to 4 L/min. Additionally, she complained of a mildl productive cough. She was started on several nebulizer treatments as well as steroids, then placed on BiPAP in the emergency room. Her chest x-ray showed vascular congestion. Her BNP was elevated. She was maintained on BiPAP overnight following admission, feeling better the next morning. (Of note, the patient's home BiPAP was supposed to be delivered this this week). Within 24 hours, her shortness of breath improved. Subjective: No specific complaints. She is resting comfortably on BiPAP. Physical Exam Vital Signs: Temp Pulse Resp BP Pulse Ox 98.5 F 72 22 H 100/58 L 93 07/12/17 12:26 07/12/17 12:33 07/12/17 12:33 07/12/17 12:26 07/12/17 12:33 Intake & Output 07/11/17 07/12/17 07/13/17 06:59 06:59 06:59 Intake Total 1315 1371 358 Output Total 2850 2400 250 Balance -1535 -1029 108 Weight 148.3 kg 142 kg General appearance: PRESENT: no acute distress, morbidly obese Head exam: PRESENT: atraumatic, normocephalic Eye exam: PRESENT: conjunctiva pink, EOMI, PERRLA. ABSENT: scleral icterus Neck exam: PRESENT: full ROM Respiratory exam: PRESENT: clear to auscultation dena. ABSENT: rales, rhonchi, wheezes Cardiovascular exam: PRESENT: RRR. ABSENT: diastolic murmur, rubs, systolic murmur GI/Abdominal exam: PRESENT: normal bowel sounds, soft Neurological exam: PRESENT: alert, awake, oriented to person, oriented to place , oriented to time, oriented to situation, CN II-XII grossly intact. ABSENT: motor sensory deficit Psychiatric exam: PRESENT: appropriate affect, normal mood. ABSENT: homicidal ideation, suicidal ideation Skin exam: PRESENT: dry, intact, warm. ABSENT: cyanosis, rash Results Laboratory Results: 07/11/17 12:30 07/12/17 11:35 07/11/17 07/12/17 17:27 11:35 Sodium 147.7 H 146.5 H Potassium 5.2 H 4.0 D Chloride 103 99 Carbon Dioxide 36 H 39 H Anion Gap 9 9 BUN 48 H 48 H Creatinine 1.50 H 1.38 H Est GFR ( Amer) 41 L 45 L Est GFR (Non-Af Amer) 34 L 37 L Glucose 142 H 136 H Calcium 8.2 L 7.9 L 07/10/17 07/10/17 07/11/17 16:40 22:00 06:12 Troponin I < 0.012 < 0.012 0.014 NT-Pro-B Natriuret Pep 6370 H Impressions: Chest X-Ray 07/10/17 12:34 IMPRESSION: CARDIAC ENLARGEMENT. VASCULAR CONGESTION. Assessment & Plan - Diagnosis (1) Acute and chronic respiratory failure with hypoxia Plan: She was also hypercapneic. Her symptoms have improved with BiPAP alone. It may be adventitious to keep her here until her BiPAP machine arrives to her home. We will maintain her on BiPAP at bedtime as well as during the day as needed. In between, continue supplemental oxygen. (2) Acute diastolic CHF (congestive heart failure) Is this a current diagnosis for this admission?: Yes Plan: Resolved. Lasix was held due to prerenal azotemia. Continue to monitor renal function (3) Moderate to severe pulmonary hypertension Is this a current diagnosis for this admission?: Yes Plan: Continue oxygen (4) Morbid obesity Is this a current diagnosis for this admission?: Yes (5) Acute renal failure Qualifiers: Acute renal failure type: unspecified Qualified Code(s): N17.9 - Acute kidney failure, unspecified Is this a current diagnosis for this admission?: Yes Plan: Continue to monitor, off diuretics. (6) Hyperkalemia Is this a current diagnosis for this admission?: Yes Plan: Resolved. (7) Hypernatremia Is this a current diagnosis for this admission?: Yes Plan: Improved. (8) COPD (chronic obstructive pulmonary disease) Qualifiers: COPD type: COPD with acute exacerbation Qualified Code(s): J44.1 - Chronic obstructive pulmonary disease with (acute) exacerbation Is this a current diagnosis for this admission?: Yes Plan: Improved. Continue nebulizer treatment, prednisone, and oral azithromycin. - Time Time Spent with patient: 25-34 minutes Medications reviewed and adjusted accordingly: Yes Anticipated discharge: SNF Within: within 72 hours - Inpatient Certification Based on my medical assessment, after consideration of the patient's comorbidities, presenting symptoms, or acuity I expect that the services needed warrant INPATIENT care.: Yes I certify that my determination is in accordance with my understanding of Medicare's requirements for reasonable and necessary INPATIENT services [42 CFR 412.3e].: Yes Medical Necessity: Need for Nebulizer Therapy and Monitoring of Response
[2017-07-12] MEDS: MONTELUKAST SODIUM 10 MG TABLET PO SCH (17:25)
[2017-07-13] MEDS: LANSOPRAZOLE 15 MG TAB.RAP.DR PO SCH ×2 (06:03→17:01)
[2017-07-13] MEDS: IPRATROPIUM/ALBUTEROL 0.5-2.5 MG/3 ML AMPUL NEB SCH ×4 (07:29→20:43)
[2017-07-13] MEDS: ASPIRIN 81 MG TABLET, ENT COATED PO SCH (10:21)
[2017-07-13] MEDS: FLUTICASONE/SALMETEROL DISKUS 250-50 MCG/DOSE IH SCH ×2 (10:21→23:18)
[2017-07-13] MEDS: DOCUSATE SODIUM 100 MG CAPSULE PO SCH (10:21)
[2017-07-13] MEDS: AZITHROMYCIN 250 MG TABLET PO SCH (10:21)
[2017-07-13] MEDS: CITALOPRAM HYDROBROMIDE 20 MG TABLET PO SCH (10:21)
[2017-07-13] MEDS: PREDNISONE 20 MG TABLET PO SCH (10:21)
[2017-07-13] MEDS: ENOXAPARIN SODIUM INJ 40 MG/0.4 ML DISP.SYRIN SUBCUT SCH (10:21)
[2017-07-13] MEDS: NYSTATIN TOPICAL POWDER 15 GM TP SCH ×2 (10:22→23:20)
[2017-07-13 11:51] LABS: ANION GAP 10 (5-19); BLOOD UREA NITROGEN 50 mg/dL (7-20); CALCIUM 7.8 mg/dL (8.4-10.2); CARBON DIOXIDE 35 mmol/L (22-30); CHLORIDE 99 mmol/L (98-107); CREATININE RESULT 1.39 mg/dL (0.52-1.25); GLUCOSE 114 mg/dL (75-110); POTASSIUM 4.4 mmol/L (3.6-5.0); SODIUM 144.4 mmol/L (137-145)
--- NOTE | 2017-07-13 15:59 | PDOC PROGRESS REPORT ---
Subjective Progress Note for:: 07/13/17 Subjective:: Ms Abreu is a 72-year-old female with a history of COPD, chronic hypoxic and hypercapneic respiratory failure, RYLAN, moderate to severe pulmonary hypertension , HTN, chronic diastolic CHF, morbid obesity S/P gastric bypass surgery, and iron deficiency anemia. She presented from home with worsening shortness of breath of several days' duration. She had to increase her oxygen from baseline 2 L/min to 4 L/min. Additionally, she complained of a mildl productive cough. She was started on several nebulizer treatments as well as steroids, then placed on BiPAP in the emergency room. Her chest x-ray showed vascular congestion. Her BNP was elevated. She was maintained on BiPAP overnight following admission, and feeling better the next morning. (Of note, the patient 's home BiPAP was supposed to be delivered this this week). Within 24 hours, her shortness of breath improved. She was given furosemide for the "vascular congestion" seen on the CXR. Subjective: No specific complaints. She is resting comfortably on nasal cannula. Physical Exam Vital Signs: Temp Pulse Resp BP Pulse Ox 98.4 F 89 20 103/55 L 93 07/13/17 11:58 07/13/17 14:00 07/13/17 11:58 07/13/17 11:58 07/13/17 11:58 Intake & Output 07/12/17 07/13/17 07/14/17 06:59 06:59 06:59 Intake Total 1371 1610 476 Output Total 2400 960 300 Balance -1029 650 176 Weight 142 kg 145.9 kg General appearance: PRESENT: no acute distress, cooperative, morbidly obese Head exam: PRESENT: atraumatic, normocephalic Mouth exam: PRESENT: dry mucosa Teeth exam: PRESENT: edentulous Respiratory exam: PRESENT: clear to auscultation dena. ABSENT: rales, rhonchi, wheezes Cardiovascular exam: PRESENT: RRR. ABSENT: diastolic murmur, rubs, systolic murmur GI/Abdominal exam: PRESENT: normal bowel sounds, soft. ABSENT: distended, guarding, mass, organolmegaly, rebound, tenderness Neurological exam: PRESENT: alert, awake, oriented to person, oriented to place , oriented to time, oriented to situation, CN II-XII grossly intact. ABSENT: motor sensory deficit Psychiatric exam: PRESENT: appropriate affect, normal mood. ABSENT: homicidal ideation, suicidal ideation Results Laboratory Results: 07/11/17 12:30 07/13/17 10:53 07/13/17 10:53 Sodium 144.4 Potassium 4.4 Chloride 99 Carbon Dioxide 35 H Anion Gap 10 BUN 50 H Creatinine 1.39 H Est GFR ( Amer) 45 L Est GFR (Non-Af Amer) 37 L Glucose 114 H Calcium 7.8 L 07/10/17 07/10/17 07/11/17 16:40 22:00 06:12 Troponin I < 0.012 < 0.012 0.014 NT-Pro-B Natriuret Pep 6370 H Impressions: Chest X-Ray 07/10/17 12:34 IMPRESSION: CARDIAC ENLARGEMENT. VASCULAR CONGESTION. Assessment & Plan - Diagnosis (1) Acute and chronic respiratory failure with hypoxia Plan: She was also hypercapneic. Her symptoms have improved with BiPAP alone. It may be adventitious to keep her here until her BiPAP machine arrives to her home. We will maintain her on BiPAP at bedtime as well as during the day as needed. In between, continue supplemental oxygen.I IV furosemide ordered today. (2) Acute diastolic CHF (congestive heart failure) Is this a current diagnosis for this admission?: Yes Plan: Resolved. Lasix was held due to prerenal azotemia. However, since she is on 5 L , I will repeat the furosemide today. Continue to monitor renal function (3) Moderate to severe pulmonary hypertension Is this a current diagnosis for this admission?: Yes Plan: Continue oxygen (4) Morbid obesity Is this a current diagnosis for this admission?: Yes Plan: At this point, she requires almost complete total care. Essentially, she is bedbound. I discussed this with her daughter Yessenia. Family is making plans to move her to her other son's home once she is discharged. He and his have agreed to care for her. (5) Acute renal failure Qualifiers: Acute renal failure type: unspecified Qualified Code(s): N17.9 - Acute kidney failure, unspecified Is this a current diagnosis for this admission?: Yes Plan: Continue to monitor. (6) Hyperkalemia Is this a current diagnosis for this admission?: Yes Plan: Resolved. (7) Hypernatremia Is this a current diagnosis for this admission?: Yes Plan: Improved. (8) COPD (chronic obstructive pulmonary disease) Qualifiers: COPD type: COPD with acute exacerbation Qualified Code(s): J44.1 - Chronic obstructive pulmonary disease with (acute) exacerbation Is this a current diagnosis for this admission?: Yes Plan: Improved. Continue nebulizer treatment, prednisone, and oral azithromycin. - Time Time Spent with patient: 25-34 minutes Medications reviewed and adjusted accordingly: Yes Anticipated discharge: SNF Within: when bed available - Inpatient Certification Based on my medical assessment, after consideration of the patient's comorbidities, presenting symptoms, or acuity I expect that the services needed warrant INPATIENT care.: Yes I certify that my determination is in accordance with my understanding of Medicare's requirements for reasonable and necessary INPATIENT services [42 CFR 412.3e].: Yes Medical Necessity: Significant Comorbidiites Make Outpatient Treatment Too Risky
[2017-07-13] MEDS ORDERED: FUROSEMIDE INJ/PF 40 MG/4 ML SDV IV ONE (17:00)
[2017-07-13] MEDS: MONTELUKAST SODIUM 10 MG TABLET PO SCH (17:01)
[2017-07-14] MEDS: LANSOPRAZOLE 15 MG TAB.RAP.DR PO SCH ×2 (05:47→16:36)
[2017-07-14] MEDS: IPRATROPIUM/ALBUTEROL 0.5-2.5 MG/3 ML AMPUL NEB SCH ×4 (09:02→20:24)
[2017-07-14] MEDS: ENOXAPARIN SODIUM INJ 40 MG/0.4 ML DISP.SYRIN SUBCUT SCH (11:16)
[2017-07-14] MEDS: PREDNISONE 20 MG TABLET PO SCH (11:17)
[2017-07-14] MEDS: CITALOPRAM HYDROBROMIDE 20 MG TABLET PO SCH (11:18)
[2017-07-14] MEDS: ASPIRIN 81 MG TABLET, ENT COATED PO SCH (11:18)
[2017-07-14] MEDS: DOCUSATE SODIUM 100 MG CAPSULE PO SCH (11:18)
[2017-07-14] MEDS: FLUTICASONE/SALMETEROL DISKUS 250-50 MCG/DOSE IH SCH ×2 (11:19→22:20)
[2017-07-14] MEDS: AZITHROMYCIN 250 MG TABLET PO SCH (11:19)
[2017-07-14] MEDS: NYSTATIN TOPICAL POWDER 15 GM TP SCH ×2 (11:20→22:20)
--- NOTE | 2017-07-14 14:13 | PROGRESS NOTE E ---
Progress Note NAME: ASHLEY COTTRELL : 1945 AGE: 72Y DATE: 07/14/2017 ROOM: [facility] SUBJECTIVE: The patient is a pleasant 72-year-old female who has a past medical history of COPD, congestive heart failure , pulmonary hypertension, chronic diastolic heart failure, morbid obesity, status post gastric bypass, iron deficiency anemia. She was admitted with shortness of breath, COPD exacerbation. Started on Lasix. Doing well. OBJECTIVE: GENERAL: The patient is lying in bed, comfortable, not in distress. VITAL SIGNS: Temperature 98.3, heart rate 80, blood pressure 119/63, respiratory rate 20, saturation 98%. HEENT: Head normocephalic, atraumatic. Pupils round, reactive to light and accommodation bilaterally. Extraocular movements intact. Ears: Tympanic membranes intact bilaterally. No discharge from the ear. No discharge from the nose. NECK: Supple, no increased JVD, no thyromegaly, no lymphadenopathy. CARDIOVASCULAR: Normal S1, S2. Regular rate and rhythm. No murmur, no gallops. RESPIRATORY: Lungs clear. ABDOMEN: Soft, nontender. MUSCULOSKELETAL: No edema. NEUROLOGIC: Awake, alert. SKIN: No rash. LABORATORY DATA: White blood count 6.9, hemoglobin 9.9, hematocrit 30. Sodium 144, potassium 4.4, creatinine 1.39. ASSESSMENT: 1. ACUTE ON CHRONIC HYPOXEMIC RESPIRATORY FAILURE. 2. ACUTE DIASTOLIC CONGESTIVE HEART FAILURE. 3. MODERATE TO SEVERE PULMONARY HYPERTENSION. 4. MORBID OBESITY. 5. HYPERNATREMIA. PLAN: Continue Lasix. Continue oxygen and BiPAP at night. and we will continue Lasix 40 mg p.o. b.i.d. MEDICAL NECESSITY: She is still requiring high oxygen and needs also placement. DICTATING PHYSICIAN: YA MARTINEZ M.D. [id number] PHY#: [id number] ID: [id number] JOB#: [id number] ACCT: [id number] cc: > [facility]
[2017-07-14] MEDS: MONTELUKAST SODIUM 10 MG TABLET PO SCH (16:36)
[2017-07-15] MEDS: LANSOPRAZOLE 15 MG TAB.RAP.DR PO SCH ×2 (05:17→18:11)
[2017-07-15] MEDS: IPRATROPIUM/ALBUTEROL 0.5-2.5 MG/3 ML AMPUL NEB SCH ×4 (08:07→19:58)
[2017-07-15] MEDS ORDERED: FUROSEMIDE 40 MG TABLET PO SCH (08:45)
--- NOTE | 2017-07-15 09:28 | PROGRESS NOTE E ---
Progress Note NAME: ASHLEY COTTRELL : 1945 AGE: 72Y DATE: 07/15/2017 ROOM: 326 SUBJECTIVE: The patient is a 72-year-old female who has a past medical history of COPD, congestive heart failure, pulmonary hypertension, chronic diastolic heart failure, morbid obesity, status post chronic gastric bypass, iron deficiency anemia. She was admitted with shortness of breath and COPD exacerbation. Today I started her on Lasix as well as Zaroxolyn but she is doing much better. OBJECTIVE: GENERAL: The patient is lying in bed, comfortable. Not in distress. VITALS SIGNS: Temperature 98.5, heart rate is 133 now, blood pressure 131/82, respiratory 22, saturation 95% on 5 L. HEENT: Normocephalic, atraumatic. Pupils round and reactive to light and accommodation bilaterally. Extraocular movements intact. Ears: Tympanic membranes intact bilaterally. No discharge from the ears. No discharge from the nose. NECK: Supple. No increased JVD. No thyromegaly. No lymphadenopathy. CARDIOVASCULAR: Normal S1, S2. Regular rate and rhythm. No murmur. No gallop. RESPIRATORY: Bilateral wheezing. ABDOMEN: Soft. MUSCULOSKELETAL: No edema. NEUROLOGIC: Awake, alert. LABORATORY: White blood count 6.4, hemoglobin 9.9, hematocrit 90.3. Sodium 144, potassium 4.4, creatinine 1.3. ASSESSMENT: 1. ACUTE HYPOXIC RESPIRATORY FAILURE. 2. ACUTE COPD EXACERBATION. 3. ACUTE DIASTOLIC CONGESTIVE HEART FAILURE. 4. MODERATE TO SEVERE PULMONARY HYPERTENSION. 5. MORBID OBESITY. 6. HYPERLIPIDEMIA. PLAN: We will restart her Lasix today. Continue Lasix 40 mg p.o. b.i.d. I will add Zaroxolyn 5 mg daily. We will order EKG also. MEDICAL NECESSITY: The patient needs placement. DICTATING PHYSICIAN: YA MARTINEZ M.D. [id number] PHY#: [id number] ID: [id number] JOB#: [id number] ACCT: [id number] cc: >
[2017-07-15] MEDS ORDERED: METOLAZONE 5 MG TABLET PO SCH (10:00)
[2017-07-15] MEDS: ASPIRIN 81 MG TABLET, ENT COATED PO SCH (10:23)
[2017-07-15] MEDS: DOCUSATE SODIUM 100 MG CAPSULE PO SCH (10:23)
[2017-07-15] MEDS: PREDNISONE 20 MG TABLET PO SCH (10:23)
[2017-07-15] MEDS: FUROSEMIDE 40 MG TABLET PO SCH ×2 (10:23→18:11)
[2017-07-15] MEDS: CITALOPRAM HYDROBROMIDE 20 MG TABLET PO SCH (10:24)
[2017-07-15] MEDS: AZITHROMYCIN 250 MG TABLET PO SCH (10:24)
[2017-07-15] MEDS: ENOXAPARIN SODIUM INJ 40 MG/0.4 ML DISP.SYRIN SUBCUT SCH (10:28)
[2017-07-15] MEDS: NYSTATIN TOPICAL POWDER 15 GM TP SCH ×2 (10:33→21:43)
[2017-07-15 12:03] LABS: ABSOLUTE LYMPHOCYTES (AUTO) 0.6 10^3/uL (0.5-4.7); ABSOLUTE MONOCYTES (AUTO) 0.4 10^3/uL (0.1-1.4); ABSOLUTE NEUT (AUTO) 5.4 10^3/uL (1.7-8.2); BASOPHILS % (AUTO) 0.6 % (0-2); EOSINOPHILS % (AUTO) 0.7 % (0-6); HEMATOCRIT 33.3 % (36.0-47.0); HEMOGLOBIN 10.4 g/dL (12.0-15.5); HGB HCT DIFFERENCE -2.1; MEAN CORPUSCULAR HEMOGLOBIN 28.4 pg (27.0-33.4); MEAN CORPUSCULAR HGB CONC 31.3 g/dL (32.0-36.0); MEAN CORPUSCULAR VOLUME 91 fl (80-97); RED BLOOD COUNT 3.67 10^6/uL (3.72-5.28); RED CELL DISTRIBUTION WIDTH 16.3 % (11.5-14.0); SEGMENTED NEUTROPHILS % (AUTO) 83.7 % (42-78); WHITE BLOOD COUNT 6.4 10^3/uL (4.0-10.5)
[2017-07-15 12:15] LABS: ARTERIAL BLOOD BASE EXCESS 11.4 mmol/L; ARTERIAL BLOOD O2 SATURATION 89.5 % (94-98)
[2017-07-15 12:29] LABS: ALANINE AMINOTRANSFERASE 33 U/L (9-52); ALBUMIN 3.1 g/dL (3.5-5.0); ALKALINE PHOSPHATASE 123 U/L (38-126); ANION GAP 9 (5-19); ASPARTATE AMINO TRANSFERASE 20 U/L (14-36); BILIRUBIN,DIRECT 0.3 mg/dL (0.0-0.4); BILIRUBIN,TOTAL 0.5 mg/dL (0.2-1.3); BLOOD UREA NITROGEN 46 mg/dL (7-20); CALCIUM 8.1 mg/dL (8.4-10.2); CARBON DIOXIDE 38 mmol/L (22-30); CHLORIDE 97 mmol/L (98-107); CREATINE KINASE 23 U/L (30-135); CREATININE RESULT 1.12 mg/dL (0.52-1.25); GLUCOSE 143 mg/dL (75-110); MAGNESIUM 2.2 mg/dL (1.6-2.3); PHOSPHORUS 3.6 mg/dL (2.5-4.5); POTASSIUM 4.5 mmol/L (3.6-5.0); SODIUM 143.6 mmol/L (137-145); TOTAL PROTEIN 5.7 g/dL (6.3-8.2)
[2017-07-15 12:38] LABS: CREATINE KINASE MB 1.81 ng/mL (<4.55)
[2017-07-15 12:48] LABS: TROPONIN I 0.122 ng/mL
[2017-07-15] MEDS ORDERED: METOPROLOL TARTRATE 25 MG TABLET PO ONE (13:10)
[2017-07-15] MEDS ORDERED: ASPIRIN 325 MG TABLET PO ONE (14:00)
--- NOTE | 2017-07-15 14:39 | EKG REPORT ---
SEVERITY:- ABNORMAL ECG - ATRIAL FLUTTER WITH 2:1 AV BLOCK BORDERLINE LEFT AXIS DEVIATION : Confirmed by: Leana Napoles MD 15-Jul-2017 14:38:22
--- NOTE | 2017-07-15 14:52 | RADIOLOGY REPORT (SQ) ---
EXAM DESCRIPTION: VENOUS BILATERAL LOWER COMPLETED DATE/TIME: 07/15/2017 2:42 pm REASON FOR STUDY: RO CLOTS BILATERAL LOWER EXTREMITY COMPARISON: None. TECHNIQUE: Dynamic and static castellon scale and color images acquired of both lower extremity venous sy stems. Selected spectral images acquired with additional compression and augmentation maneuvers. Imag es stored on PACS. LIMITATIONS: None. FINDINGS: RIGHT LEG COMMON FEMORAL AND FEMORAL: Normal phasicity, compression and augmentation. No visualized echogenic m aterial on castellon scale. No defects on color images. Mid and distal femoral vein not visualized. POPLITEAL: Normal compression and augmentation. No visualized echogenic material on castellon scale. No de fects on color images. CALF VESSELS: Normal compression and augmentation. No visualized echogenic material on castellon scale. No defects on color image. GSV AND SSV: Normal compression. No visualized echogenic material on castellon scale. No defects on color images. ANY DEEP VENOUS INSUFFICIENCY: Not evaluated. ANY EVIDENCE OF POPLITEAL CYST: No. OTHER: No other significant finding. LEFT LEG COMMON FEMORAL AND FEMORAL: Normal phasicity, compression and augmentation. No visualized echogenic m aterial on castellon scale. No defects on color images. Distal femoral vein not visualized. POPLITEAL: Normal compression and augmentation. No visualized echogenic material on castellon scale. No de fects on color images. CALF VESSELS: Normal compression and augmentation. No visualized echogenic material on castellon scale. No defects on color images. GSV AND SSV: Normal compression. No visualized echogenic material on castellon scale. No defects on color images. ANY DEEP VENOUS INSUFFICIENCY: Not evaluated. ANY EVIDENCE POPLITEAL CYST: No. OTHER: No other significant finding. IMPRESSION: NO EVIDENCE DVT OR SVT IN EITHER LEG. Limited visualization of the femoral veins. TECHNICAL DOCUMENTATION: JOB ID: [id number] [employer]- All Rights Reserved
--- NOTE | 2017-07-15 15:00 | PDOC CONSULTATION ---
Consultation Consult Date: 07/15/17 Attending physician:: BERNADINE DYE Consult reason:: Abnormal troponin I History of Present Illness Admission Date/PCP: 07/10/17 14:39 YARELIS MARTINEZ Patient complains of: Shortness of breath History of Present Illness: ASHLEY COTTRELL is a 72 year old female with history of COPD, chronic hypoxic respiratory failure, RYLAN, moderate to severe pulmonary hypertension, hypertension, chronic diastolic heart failure (echo of 10/2016 with low normal LVEF, great 2/4 diastolic dysfunction), morbid obesity status previous gastric bypass surgery, iron deficiency anemia, who presented from home with worsening shortness of breath of several days' duration. Apparently the patient has been having some shortness of breath associated with generalized weakness. She has had to increase her oxygen from baseline 2L/min to up to 4L/min. She admits to having a mildly productive cough. She denies chest pain. She denies nausea vomiting diarrhea, abdominal pain. She denies any focal neurologic deficit. Her sister who is in the emergency room, informs me that the patient was supposed to have a BiPAP delivered sometime next week for her obstructive sleep apnea. In the emergency room, the patient received several nebulizer treatment, as well as steroids, and was placed on BiPAP. At the time of my exam the patient admits to generalized weakness. Chest x-ray showed vascular congestion. BNP was elevated. Past Medical History Cardiac Medical History: Reports: Congestive Heart Failure - 2/4 LVDD, normal EF , Hyperlipidema, Hypertension Denies: Coronary Artery Disease, Myocardial Infarction Pulmonary Medical History: Reports: Asthma, Chronic Obstructive Pulmonary Disease (COPD) - Home oxygen dependent 3.5 L nasal cannula, Pneumonia Denies: Bronchitis Neurological Medical History: Denies: Seizures Endocrine Medical History: Denies: Diabetes Mellitus Type 1, Diabetes Mellitus Type 2 Musculoskeltal Medical History: Reports: Arthritis Hematology: Reports: Anemia - 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 Past Surgical History Past Surgical History: Reports: Cholecystectomy, Gastric Bypass Surgery, Hysterectomy, Other - Reduction mammoplasty Social History Information Source: Patient Lives with: Family Smoking Status: Never Smoker Frequency of Alcohol Use: None Hx Recreational Drug Use: No Drugs: None Hx Prescription Drug Abuse: No - Advance Directive Resuscitation Status: Full Code Surrogate healthcare decision maker:: Patient sister is the surrogate decision-maker Family History Family History: CAD, DM Parental Family History Reviewed: Yes Children Family History Reviewed: Yes Sibling(s) Family History Reviewed.: Yes Medication/Allergy Home Medications: Aspirin [Aspirin EC] 81 mg PO DAILY 07/10/17 Benazepril HCl [Lotensin 10 mg Tablet] 10 mg PO DAILY 07/10/17 Cholecalciferol (Vitamin D3) [Vitamin D3 1000 Unit Tablet] 1,000 unit PO DAILY 07/10/17 Citalopram Hydrobromide [Celexa 20 mg Tablet] 20 mg PO DAILY 07/10/17 Fluticasone/Salmeterol [Advair 250-50 Diskus 28 dose] 1 puff IH Q12 07/10/17 Hydroxyzine HCl [Atarax 10 mg Tablet] 10 mg PO Q6H 07/10/17 Montelukast Sodium [Singulair 10 mg Tablet] 10 mg PO QPM 07/10/17 Omeprazole 20 mg PO DAILY 07/10/17 Oxybutynin Chloride [Ditropan 5 mg Tablet] 5 mg PO BID 07/10/17 Torsemide [Demadex 20 mg Tablet] 20 mg PO DAILY@1300 07/10/17 Allergies/Adverse Reactions: codeine [Codeine] Allergy (Verified 03/26/17 13:02) demeclocycline HCl [From Declomycin] Allergy (Verified 03/26/17 13:02) oxaprozin [From Daypro] Allergy (Verified 03/26/17 13:02) Review of Systems Review of Systems: Please see history of present illness and past medical history as wall. Constitutional: No fever or chills reported. Head : No recent chronic headaches, recent head injury. Eyes: No recent eye pain, diplopia, redness, discharge, acute visual changes. Ears: No recent chronic ear pain, acute hearing loss, ear discharge. Oral cavity: No recent ulcerations, bleeding, oral cavity discomfort. Neck: No recent acute neck pain reported. Hematologic: No recent easy bruising or bleeding or hematologic malignancy reported. Lymphatic: No recent lymphatic malignancy, chronic lymphadenopathy reported yet Cardiovascular system review: See history of present illness. Respiratory system review: No recent chronic cough, hemoptysis, blood clots in the lungs reported. Shortness of breath on exertion Gastrointestinal system review: Negative for any recent acute or chronic abdominal pain, hematemesis, melena, recent change in bowel habits. Genitourinary system review: No recent acute or chronic hematuria, flank pain, UTI etc. reported. Skin system review: Negative for any recent abnormal bruising, no rash, no pruritus reported. Neurologic: No prior history of strokes, mini strokes, seizure disorder. Psychologic: No history of major psychosis or major depression reported. Musculoskeletal: Minor aches and pains reported. No acute joint swelling reported. Endocrine: No recent polyuria, polydipsia, recent heat or cold intolerance. Physical Exam Vital Signs: Temp Pulse Resp BP Pulse Ox 98.5 F 130 H 20 110/68 94 07/15/17 11:21 07/15/17 12:08 07/15/17 12:08 07/15/17 11:21 07/15/17 12:08 Intake & Output 07/14/17 07/15/17 07/16/17 06:59 06:59 06:59 Intake Total 2041 1150 480 Output Total 2452 1275 400 Balance -411 -125 80 Weight 143.8 kg 145.3 kg Exam: GENERAL: well-nourished and in no acute distress. Alert and oriented x3 HEAD: Atraumatic, normocephalic. EYES: Pupils equal round and reactive to light, extraocular movements intact, sclera anicteric, conjunctiva are normal. ENT: TMs normal, nares patent, oropharynx clear without exudates. Moist mucous membranes. No oral ulcerations or bleeding gums noted NECK: supple without lymphadenopathy. Trachea is central. No cervical or axillary lymphadenopathy noted. Carotids are 2+, JVD WNL LUNGS: Respiration seems nonlabored, no significant accessory muscle action noted. Breath sounds clear to auscultation bilaterally and equal noted. No wheezes rales or rhonchi noted. No significant dullness noted on percussion. CHEST: Palpation of the chest wall shows no significant chest wall tenderness. No other significant abnormalities noted. HEART: [place] DIRECTOR OF INDIVIDUAL GIVING, No PSH, 1/6 SONDRA aortic area, 1/6 mccray systolic murmur mitral area, no rubs, no gallops. ABDOMEN: Soft, no significant tenderness appreciated, normoactive bowel sounds. No guarding, no rebound. No rigidity noted . No masses appreciated. EXTREMITIES: Pedal pulses are 1-2+, no calf tenderness noted. No clubbing or cyanosis. 1+ pedal edema noted NEUROLOGICAL: Focused neurological exam showed no significant neurologic deficit. Normal speech, no focal weakness appreciated. PSYCH: Normal mood, normal affect. Judgment and insight within normal limits. SKIN: No significant ecchymosis, rash, ulcerations or signs of pruritus noted. MUSCULOSKELETAL EXAM: No significant joint swelling noted. Results Laboratory Results: 07/15/17 11:54 07/15/17 11:54 07/15/17 07/15/17 07/15/17 11:54 11:54 12:00 WBC 6.4 RBC 3.67 L Hgb 10.4 L Hct 33.3 L MCV 91 MCH 28.4 MCHC 31.3 L RDW 16.3 H Plt Count 184 Seg Neutrophils % 83.7 H Lymphocytes % 9.0 L Monocytes % 6.0 Eosinophils % 0.7 Basophils % 0.6 Absolute Neutrophils 5.4 Absolute Lymphocytes 0.6 Absolute Monocytes 0.4 Absolute Eosinophils 0.0 Absolute Basophils 0.0 Carbonic Acid 2.19 H HCO3/H2CO3 Ratio 18:1 ABG pH 7.35 ABG pCO2 72.7 H* ABG pO2 61.7 L ABG HCO3 39.5 H ABG O2 Saturation 89.5 L ABG Base Excess 11.4 FiO2 5L Sodium 143.6 Potassium 4.5 Chloride 97 L Carbon Dioxide 38 H Anion Gap 9 BUN 46 H Creatinine 1.12 Est GFR ( Amer) 58 L Est GFR (Non-Af Amer) 48 L Glucose 143 H Calcium 8.1 L Phosphorus 3.6 Magnesium 2.2 Total Bilirubin 0.5 AST 20 ALT 33 Alkaline Phosphatase 123 Total Protein 5.7 L Albumin 3.1 L 07/10/17 07/10/17 07/11/17 16:40 22:00 06:12 Creatine Kinase CK-MB (CK-2) Troponin I < 0.012 < 0.012 0.014 NT-Pro-B Natriuret Pep 6370 H 07/15/17 07/15/17 11:54 11:54 Creatine Kinase 23 L CK-MB (CK-2) 1.81 Troponin I 0.122 NT-Pro-B Natriuret Pep EKG Comments: Multiple EKGs were reviewed. Today's EKG shows atrial fibrillation with rapid ventricular response. Impressions: Chest X-Ray 07/10/17 12:34 IMPRESSION: CARDIAC ENLARGEMENT. VASCULAR CONGESTION. Assessment & Plan - Diagnosis (1) Paroxysmal atrial fibrillation Is this a current diagnosis for this admission?: Yes (2) Acute and chronic respiratory failure with hypoxia Is this a current diagnosis for this admission?: Yes (3) Acute diastolic CHF (congestive heart failure) Is this a current diagnosis for this admission?: Yes (4) Hypertension Qualifiers: Hypertension type: unspecified Qualified Code(s): I10 - Essential (primary ) hypertension Is this a current diagnosis for this admission?: Yes (5) Moderate to severe pulmonary hypertension Is this a current diagnosis for this admission?: Yes (6) Morbid obesity Is this a current diagnosis for this admission?: Yes (7) Elevated troponin I level Is this a current diagnosis for this admission?: Yes - Notes Notes: Troponin I elevation: Most likely related to respiratory acidosis, hypercapnia and severe hypoxemia. Patient could have underlying CAD but not having any chest pain. At this point would recommend medical management. Paroxysmal atrial fibrillation: Patient noted to have paroxysmal atrial fibrillation. Patient on today's EKG clearly has atrial fibrillation. Recommend rate control and chronic anticoagulation. Patient started on Eliquis. Acute on chronic diastolic CHF: Most likely precipitated by volume overload in setting of diastolic dysfunction and also atrial fibrillation. Patient also has significant element of right-sided heart failure. Moderate to severe pulmonary hypertension: Recommend oxygen supplementation and noninvasive positive pressure ventilation. Patient could start on CPAP/BiPAP therapy while in the hospital. Morbid obesity: Patient has been advised to lose weight. COPD: Continue with current regimen. May consider pulmonary evaluation. - Time Time Spent: 50 to 70 Minutes - CODE STATUS was discussed, patient remains full code. Surrogate decision-maker patient's sister. Multiple medical problems were addressed. More than 50% of the time spent coordinating care, discussing management plans with involved caregivers. Management plans discussed with involved personnels. Medical decision making was of moderate to high complexity , patient's has multiple comorbidities. Medications reviewed and adjusted accordingly: Yes
[2017-07-15] MEDS: FLUTICASONE/SALMETEROL DISKUS 250-50 MCG/DOSE IH SCH ×2 (15:11→21:41)
--- NOTE | 2017-07-15 16:01 | RADIOLOGY REPORT (SQ) ---
EXAM DESCRIPTION: CTA CHEST COMPLETED DATE/TIME: 07/15/2017 3:34 pm REASON FOR STUDY: RO PE COMPARISON: 01/18/2017. Radiographs 07/10/2017. TECHNIQUE: CT scan of the chest performed using helical scanning technique with dynamic intravenous contrast injection. Images reviewed with lung, soft tissue and bone windows. Reconstructed coronal and sagittal MPR images reviewed. Additional 3 dimensional post-processing performed to develop Maximal Intensity Projection images (PR P). All images stored on PACS. All CT scanners at this facility use dose modulation, iterative reconstruction, and/or weight based d osing when appropriate to reduce radiation dose to as low as reasonably achievable (ALARA). [facility]: Dose Right [facility]: CareDose [facility]: Dose Right [facility]: Teradose 4D [facility]: Elevate HR CONTRAST TYPE AND DOSE: contrast/concentration: Isovue 370.00 mg/ml; Total Contrast Delivered: 85.9 ml; Total Saline Delivered: 58.9 ml Contrast bolus optimized for the pulmonary arteries. Not diagnostic for the aorta RENAL FUNCTION: Creatinine 1.1 RADIATION DOSE: CT Rad equipment meets quality standard of care and radiation dose reduction techniq ues were employed. CTDIvol: 54.6 - 93.7 mGy. DLP: 2108 mGy-cm. . LIMITATIONS: This study is moderately limited by motion artifact. FINDINGS: LUNGS AND PLEURA: Extensive consolidation and collapse throughout the right lower lobe. M ild partial collapse and consolidation left lower lobe. Fairly small bilateral pleural effusions. A reas of upper lobe subsegmental atelectasis/scar. AORTA AND GREAT VESSELS: Poor evaluation of the aorta given phase of contrast. No focal aneurysm. HEART: Cardiac enlargement. No pericardial effusion. No significant coronary artery calcifications. PULMONARY ARTERIES: Allowing for motion artifact, clear. There is certainly no evidence of central p ulmonary arterial thrombus. HILAR AND MEDIASTINAL STRUCTURES: No identified masses or abnormal nodes. HARDWARE: None in the chest. UPPER ABDOMEN: No significant findings. Limited exam. THYROID AND OTHER SOFT TISSUES: No masses. No adenopathy. BONES: No acute or significant finding. 3D MIPS: Confirm above findings. OTHER: No other significant finding. IMPRESSION: 1. Limited by motion. 2. Extensive lung findings to include consolidation and collapse throughout the right lower lobe, lesser changes in the left lower lobe. Associated bilateral small e ffusions. 3. No pulmonary embolus detected. COMMENT: Quality ID # [id number]: Final reports with documentation of one or more dose reduction techniques (e.g., Automated exposure control, adjustment of the mA and/or kV according to patient size, use of iterative reconstruction technique) TECHNICAL DOCUMENTATION: JOB ID: [id number] [employer]- All Rights Reserved
[2017-07-15] MEDS: MONTELUKAST SODIUM 10 MG TABLET PO SCH (18:10)
[2017-07-15] MEDS: APIXABAN 2.5 MG TABLET PO SCH (18:11)
[2017-07-15 18:19] LABS: CREATINE KINASE MB 1.69 ng/mL (<4.55)
[2017-07-15 18:25] LABS: TROPONIN I 0.124 ng/mL
[2017-07-15] MEDS: METOPROLOL TARTRATE 25 MG TABLET PO SCH (21:40)
[2017-07-15 23:56] LABS: CREATINE KINASE MB 1.72 ng/mL (<4.55); TROPONIN I 0.115 ng/mL
[2017-07-16 05:23] LABS: ABSOLUTE LYMPHOCYTES (AUTO) 0.8 10^3/uL (0.5-4.7); ABSOLUTE MONOCYTES (AUTO) 0.5 10^3/uL (0.1-1.4); ABSOLUTE NEUT (AUTO) 4.5 10^3/uL (1.7-8.2); BASOPHILS % (AUTO) 0.3 % (0-2); EOSINOPHILS % (AUTO) 0.4 % (0-6); HEMATOCRIT 32.4 % (36.0-47.0); HEMOGLOBIN 10.4 g/dL (12.0-15.5); HGB HCT DIFFERENCE -1.2; LYMPHOCYTES % (AUTO) 13.3 % (13-45); MEAN CORPUSCULAR HEMOGLOBIN 28.8 pg (27.0-33.4); MEAN CORPUSCULAR HGB CONC 32.2 g/dL (32.0-36.0); MEAN CORPUSCULAR VOLUME 89 fl (80-97); MONOCYTES % (AUTO) 8.4 % (3-13); RED BLOOD COUNT 3.62 10^6/uL (3.72-5.28); SEGMENTED NEUTROPHILS % (AUTO) 77.6 % (42-78); WHITE BLOOD COUNT 5.8 10^3/uL (4.0-10.5)
[2017-07-16 05:48] LABS: ALANINE AMINOTRANSFERASE 31 U/L (9-52); ALBUMIN 3.1 g/dL (3.5-5.0); ALKALINE PHOSPHATASE 104 U/L (38-126); ASPARTATE AMINO TRANSFERASE 23 U/L (14-36); BILIRUBIN,DIRECT 0.5 mg/dL (0.0-0.4); BILIRUBIN,TOTAL 0.6 mg/dL (0.2-1.3); BLOOD UREA NITROGEN 53 mg/dL (7-20); CALCIUM 8.2 mg/dL (8.4-10.2); CHLORIDE 93 mmol/L (98-107); CREATININE RESULT 1.16 mg/dL (0.52-1.25); GLUCOSE 109 mg/dL (75-110); SODIUM 139.7 mmol/L (137-145)
[2017-07-16 05:55] LABS: ANION GAP 7 (5-19)
[2017-07-16] MEDS: LANSOPRAZOLE 15 MG TAB.RAP.DR PO SCH ×2 (06:00→17:46)
[2017-07-16 06:22] LABS: CARBON DIOXIDE 40 mmol/L (22-30)
[2017-07-16] MEDS: IPRATROPIUM/ALBUTEROL 0.5-2.5 MG/3 ML AMPUL NEB SCH ×4 (08:14→19:42)
[2017-07-16] MEDS ORDERED: PREDNISONE 20 MG TABLET PO SCH (08:44)
--- NOTE | 2017-07-16 09:13 | PROGRESS NOTE E ---
Progress Note NAME: ASHLEY COTTRELL : 1945 AGE: 72Y DATE: 07/16/2017 ROOM: 326 SUBJECTIVE: The patient is a pleasant 72-year-old female, who had past medical history of COPD, congestive heart failure, pulmonary hypertension, coronary diastolic heart failure, morbid obesity, status post gastric bypass surgery, iron deficiency anemia. She was admitted with shortness of breath, COPD exacerbation. Doing better today. She had a CT scan of the chest yesterday to rule out PE. It was negative. Doppler ultrasound was normal and she was evaluated by Cardiology, started on metoprolol yesterday and her heart rate is better controlled today. OBJECTIVE: GENERAL: The patient is lying in bed, comfortable, not in distress. VITAL SIGNS: Temperature 98.7, heart rate 46, blood pressure 113/66. HEENT: Normocephalic, atraumatic. Pupils round, reactive to light and accommodation bilaterally. Extraocular movements intact. Ears: Tympanic membranes intact bilaterally. No discharge from the ears. No discharge from the nose. NECK: Supple. No JVD. No thyromegaly. No lymphadenopathy. CARDIOVASCULAR: Normal S1, S2. Irregularly irregular rate and rhythm. RESPIRATORY: Bilateral crackles, no wheezing. ABDOMEN: Soft, nontender. MUSCULOSKELETAL: Edema +1. LABORATORY DATA: White blood count 5.8, hemoglobin 10.4, hematocrit 32. Sodium 139, potassium 5.0, chloride 93, C02 40. CTA with no PE. Doppler ultrasound normal. ASSESSMENT: 1. ACUTE HYPOXIC RESPIRATORY FAILURE. 2. ACUTE CHRONIC OBSTRUCTIVE PULMONARY DISEASE EXACERBATION. 3. ACUTE DIASTOLIC CONGESTIVE HEART FAILURE. 4. MODERATE TO SEVERE PULMONARY HYPERTENSION. 5. MORBID OBESITY. 6. HYPERLIPIDEMIA. 7. ATRIAL FIBRILLATION. PLAN: 1. We will decrease the Zaroxolyn dose today to 2.5 daily. 2. The patient is tachy-mari. Her heart rate drops to 40s. We will monitor very closely. She is small dose beta jamaal, metoprolol 12.5 mg twice a started for atrial fibrillation yesterday. Echo result is pending. 4. Continue prednisone 40 mg daily. We will start taper. MEDICAL NECESSITY: The patient needs placement. DICTATING PHYSICIAN: YA MARTINEZ M.D. [id number] PHY#: [id number] ID: [id number] JOB#: [id number] ACCT: [id number] cc: > FAUSTINO
[2017-07-16 09:45] LABS: ARTERIAL BLOOD BASE EXCESS 13.7 mmol/L; ARTERIAL BLOOD O2 SATURATION 88.6 % (94-98)
[2017-07-16] MEDS ORDERED: ASPIRIN 325 MG TABLET PO SCH (10:00)
[2017-07-16] MEDS: FLUTICASONE/SALMETEROL DISKUS 250-50 MCG/DOSE IH SCH ×2 (10:52→22:13)
[2017-07-16] MEDS: APIXABAN 2.5 MG TABLET PO SCH ×2 (10:52→17:45)
[2017-07-16] MEDS: METOPROLOL TARTRATE 25 MG TABLET PO SCH ×2 (10:52→22:13)
[2017-07-16] MEDS: PREDNISONE 10 MG TABLET PO SCH (10:54)
[2017-07-16] MEDS: DOCUSATE SODIUM 100 MG CAPSULE PO SCH (10:54)
[2017-07-16] MEDS: FUROSEMIDE 40 MG TABLET PO SCH ×2 (10:55→17:46)
[2017-07-16] MEDS: AZITHROMYCIN 250 MG TABLET PO SCH (10:55)
[2017-07-16] MEDS: METOLAZONE 5 MG TABLET PO SCH (10:56)
[2017-07-16] MEDS: CITALOPRAM HYDROBROMIDE 20 MG TABLET PO SCH (10:56)
[2017-07-16] MEDS: ASPIRIN 81 MG TABLET, ENT COATED PO SCH (10:56)
[2017-07-16] MEDS: NYSTATIN TOPICAL POWDER 15 GM TP SCH ×2 (10:57→22:14)
--- NOTE | 2017-07-16 14:05 | EKG REPORT ---
SEVERITY:- ABNORMAL ECG - ATRIAL FLUTTER, A-RATE 272 NONSPECIFIC INTRAVENTRICULAR CONDUCTION DELAY PROBABLE LEFT VENTRICULAR HYPERTROPHY : Confirmed by: Leana Napoles MD 16-Jul-2017 14:05:25
--- NOTE | 2017-07-16 15:50 | PDOC PROGRESS REPORT ---
Subjective Progress Note for:: 07/16/17 Subjective:: Patient seems to be doing better with gradual improvement. Pt is denying any chest arm or neck discomfort. Patient denying any PND, orthopnea. Patient denied any sustained palpitations, dizziness, syncope, near syncope. Patient denying any fever chills. Patient denying any other significant discomfort. Patient is atrial flutter fibrillation with intermittent 2-1 conduction being noted.. Review of systems: Rest review of systems negative. Medications: Medications have been reviewed. Physical Exam Vital Signs: Temp Pulse Resp BP Pulse Ox 98.3 F 52 L 22 H 127/59 H 96 07/16/17 11:37 07/16/17 11:42 07/16/17 11:42 07/16/17 11:37 07/16/17 11:42 Intake & Output 07/15/17 07/16/17 07/17/17 06:59 06:59 06:59 Intake Total 1150 2345 400 Output Total 1275 3550 500 Balance -125 -1205 -100 Weight 145.3 kg 143.8 kg Exam: GENERAL: well-nourished and in no acute distress. Alert and oriented x3 HEAD: Atraumatic, normocephalic. EYES: Pupils equal round and reactive to light, extraocular movements intact, sclera anicteric, conjunctiva are normal. ENT: TMs normal, nares patent, oropharynx clear without exudates. Moist mucous membranes. No oral ulcerations or bleeding gums noted NECK: supple without lymphadenopathy. Trachea is central. No cervical or axillary lymphadenopathy noted. Carotids are 2+, JVD WNL LUNGS: Respiration seems nonlabored, no significant accessory muscle action noted. Bilateral fine crackles and few bilateral wheezes rales or rhonchi noted. No significant dullness noted on percussion. CHEST: Palpation of the chest wall shows no significant chest wall tenderness. No other significant abnormalities noted. HEART: [place] DIRECTOR CHECK, No PSH, 1/6 SONDRA aortic area, 1/6 mccray systolic murmur mitral area, no rubs, no gallops. ABDOMEN: Soft, no significant tenderness appreciated, normoactive bowel sounds. No guarding, no rebound. No rigidity noted . No masses appreciated. EXTREMITIES: Pedal pulses are 1-2+, no calf tenderness noted. No clubbing or cyanosis.trace to 1+ pedal edema noted NEUROLOGICAL: Focused neurological exam showed no significant neurologic deficit. Normal speech, no focal weakness appreciated. PSYCH: Normal mood, normal affect. Judgment and insight within normal limits. SKIN: No significant ecchymosis, rash, ulcerations or signs of pruritus noted. MUSCULOSKELETAL EXAM: No significant joint swelling noted. Results Laboratory Results: 07/16/17 04:33 07/16/17 04:33 07/16/17 07/16/17 07/16/17 04:33 04:33 09:25 WBC 5.8 RBC 3.62 L Hgb 10.4 L Hct 32.4 L MCV 89 MCH 28.8 MCHC 32.2 RDW 16.0 H Plt Count 175 Seg Neutrophils % 77.6 Lymphocytes % 13.3 Monocytes % 8.4 Eosinophils % 0.4 Basophils % 0.3 Absolute Neutrophils 4.5 Absolute Lymphocytes 0.8 Absolute Monocytes 0.5 Absolute Eosinophils 0.0 Absolute Basophils 0.0 Carbonic Acid 2.03 H HCO3/H2CO3 Ratio 20:1 ABG pH 7.40 ABG pCO2 67.4 H ABG pO2 57.1 L ABG HCO3 41.0 H ABG O2 Saturation 88.6 L ABG Base Excess 13.7 FiO2 3L Sodium 139.7 Potassium 5.0 Chloride 93 L Carbon Dioxide 40 H* Anion Gap 7 BUN 53 H Creatinine 1.16 Est GFR ( Amer) 55 L Est GFR (Non-Af Amer) 46 L Glucose 109 Calcium 8.2 L Total Bilirubin 0.6 AST 23 ALT 31 Alkaline Phosphatase 104 Total Protein 6.0 L Albumin 3.1 L 07/10/17 07/10/17 07/11/17 16:40 22:00 06:12 Creatine Kinase CK-MB (CK-2) Troponin I < 0.012 < 0.012 0.014 NT-Pro-B Natriuret Pep 6370 H 07/15/17 07/15/17 07/15/17 11:54 11:54 17:20 Creatine Kinase 23 L 39 CK-MB (CK-2) 1.81 Troponin I 0.122 NT-Pro-B Natriuret Pep 07/15/17 07/15/17 07/15/17 17:20 23:18 23:18 Creatine Kinase < 20 L CK-MB (CK-2) 1.69 1.72 Troponin I 0.124 0.115 NT-Pro-B Natriuret Pep EKG Comments: Atrial flutter fibrillation with predominantly controlled heart rate. Impressions: Chest X-Ray 07/10/17 12:34 IMPRESSION: CARDIAC ENLARGEMENT. VASCULAR CONGESTION. Venous Doppler Study 07/15/17 00:00 IMPRESSION: NO EVIDENCE DVT OR SVT IN EITHER LEG. Limited visualization of the femoral veins. Chest/Abdomen CTA 07/15/17 13:02 IMPRESSION: 1. Limited by motion. 2. Extensive lung findings to include consolidation and collapse throughout the right lower lobe, lesser changes in the left lower lobe. Associated bilateral small effusions. 3. No pulmonary embolus detected. Assessment & Plan - Diagnosis (1) Paroxysmal atrial fibrillation Is this a current diagnosis for this admission?: Yes (2) Acute and chronic respiratory failure with hypoxia Is this a current diagnosis for this admission?: Yes (3) Acute diastolic CHF (congestive heart failure) Is this a current diagnosis for this admission?: Yes (4) Hypertension Qualifiers: Hypertension type: unspecified Qualified Code(s): I10 - Essential (primary ) hypertension Is this a current diagnosis for this admission?: Yes (5) Moderate to severe pulmonary hypertension Is this a current diagnosis for this admission?: Yes (6) Morbid obesity Is this a current diagnosis for this admission?: Yes (7) Elevated troponin I level Is this a current diagnosis for this admission?: Yes - Notes Notes: Patient noted to have now rather persistent atrial fibrillation. As regards acute on chronic respiratory failure, this is stable and improving. CHF also seems improving. Continue diuretic therapy. Hypertension is under better control. As regards pulmonary hypertension continue oxygen supplementation and also intermittent positive pressure breathing help. Troponin I elevation is related to supply demand mismatch rather than acute coronary syndrome. Patient would immensely benefit from weight loss. This was explained. Continue chronic anticoagulation. Will continue to follow patient. - Time Time with patient: Greater than 35 minutes - CODE STATUS was discussed, patient remains full code. Surrogate decision-maker unchanged. Multiple medical problems were addressed. More than 50% of the time spent coordinating care, discussing management plans with involved caregivers. Management plans discussed with involved personnels. Medical decision making was of moderate to high complexity, patient's has multiple comorbidities. Medications reviewed and adjusted accordingly: Yes
[2017-07-16] MEDS: MONTELUKAST SODIUM 10 MG TABLET PO SCH (17:46)
[2017-07-17] MEDS: LANSOPRAZOLE 15 MG TAB.RAP.DR PO SCH ×2 (05:29→16:29)
[2017-07-17 05:46] LABS: CALCIUM 8.1 mg/dL (8.4-10.2)
[2017-07-17 05:47] LABS: BLOOD UREA NITROGEN 56 mg/dL (7-20); CREATININE RESULT 1.36 mg/dL (0.52-1.25); GLUCOSE 111 mg/dL (75-110); POTASSIUM 4.7 mmol/L (3.6-5.0)
[2017-07-17 05:48] LABS: ANION GAP 10 (5-19); CARBON DIOXIDE 38 mmol/L (22-30); CHLORIDE 91 mmol/L (98-107); MAGNESIUM 2.1 mg/dL (1.6-2.3); SODIUM 138.9 mmol/L (137-145)
[2017-07-17] MEDS: IPRATROPIUM/ALBUTEROL 0.5-2.5 MG/3 ML AMPUL NEB SCH ×4 (07:55→20:24)
[2017-07-17] MEDS: APIXABAN 2.5 MG TABLET PO SCH ×2 (10:53→17:09)
[2017-07-17] MEDS: METOLAZONE 5 MG TABLET PO SCH (10:54)
[2017-07-17] MEDS: ASPIRIN 81 MG TABLET, ENT COATED PO SCH (10:54)
[2017-07-17] MEDS: AZITHROMYCIN 250 MG TABLET PO SCH (10:54)
[2017-07-17] MEDS: PREDNISONE 10 MG TABLET PO SCH (10:55)
[2017-07-17] MEDS: FUROSEMIDE 40 MG TABLET PO SCH ×2 (10:56→17:09)
[2017-07-17] MEDS: METOPROLOL TARTRATE 25 MG TABLET PO SCH (10:57)
[2017-07-17] MEDS: CITALOPRAM HYDROBROMIDE 20 MG TABLET PO SCH (10:57)
[2017-07-17] MEDS: FLUTICASONE/SALMETEROL DISKUS 250-50 MCG/DOSE IH SCH ×2 (10:58→21:43)
[2017-07-17] MEDS: NYSTATIN TOPICAL POWDER 15 GM TP SCH ×2 (10:59→21:44)
[2017-07-17] MEDS: DOCUSATE SODIUM 100 MG CAPSULE PO SCH (11:00)
--- NOTE | 2017-07-17 12:35 | PDOC PROGRESS REPORT ---
Subjective Progress Note for:: 07/17/17 Subjective:: f/u: acute on chronic hypoxic resp failure, diastolic HF, afib, COPD exac and poss PNA reports she is doing ok, still SOA from time to time but much better than when she arrived; still wheezing with minimal exertion and dry hacking cough. she shanda chest pain, palpitations, N/V/D, melena, hematochezia. she underwent CTA chest 07/15 and no PE but large segment of the RLL collapsed with small effusion noted as well. she remains zmax and prednisone. ROS: as above, all systems reviewed, remaining systems negative. she still has calderon cath in place due to immobility and I/O monitoring, neg 1.2L last 24hrs. Physical Exam Vital Signs: Temp Pulse Resp BP Pulse Ox 98.4 F 58 L 18 113/75 96 07/17/17 07:29 07/17/17 12:23 07/17/17 12:23 07/17/17 07:29 07/17/17 12:23 Intake & Output 07/16/17 07/17/17 07/18/17 06:59 06:59 06:59 Intake Total 2345 1023 Output Total 3550 2850 Balance -1205 -1827 Weight 143.8 kg 140.6 kg General appearance: PRESENT: no acute distress, morbidly obese Head exam: PRESENT: atraumatic Eye exam: PRESENT: EOMI. ABSENT: scleral icterus Mouth exam: PRESENT: moist Neck exam: PRESENT: full ROM. ABSENT: tenderness Respiratory exam: PRESENT: crackles - diffusely R>L, wheezes - faint end exp. ABSENT: accessory muscle use Cardiovascular exam: PRESENT: RRR. ABSENT: systolic murmur, tachycardia Extremities exam: PRESENT: pedal edema - trace. ABSENT: calf tenderness Musculoskeletal exam: PRESENT: full ROM. ABSENT: tenderness Neurological exam: PRESENT: alert, awake, oriented to person, oriented to place , oriented to situation Psychiatric exam: PRESENT: normal mood. ABSENT: anxious Skin exam: PRESENT: dry, warm Results Laboratory Results: 07/16/17 04:33 07/17/17 04:13 07/17/17 04:13 Sodium 138.9 Potassium 4.7 Chloride 91 L Carbon Dioxide 38 H Anion Gap 10 BUN 56 H Creatinine 1.36 H Est GFR ( Amer) 46 L Est GFR (Non-Af Amer) 38 L Glucose 111 H Calcium 8.1 L Magnesium 2.1 07/10/17 07/10/17 07/11/17 16:40 22:00 06:12 Creatine Kinase CK-MB (CK-2) Troponin I < 0.012 < 0.012 0.014 NT-Pro-B Natriuret Pep 6370 H 07/15/17 07/15/17 07/15/17 11:54 11:54 17:20 Creatine Kinase 23 L 39 CK-MB (CK-2) 1.81 Troponin I 0.122 NT-Pro-B Natriuret Pep 07/15/17 07/15/17 07/15/17 17:20 23:18 23:18 Creatine Kinase < 20 L CK-MB (CK-2) 1.69 1.72 Troponin I 0.124 0.115 NT-Pro-B Natriuret Pep Impressions: Chest X-Ray 07/10/17 12:34 IMPRESSION: CARDIAC ENLARGEMENT. VASCULAR CONGESTION. Venous Doppler Study 07/15/17 00:00 IMPRESSION: NO EVIDENCE DVT OR SVT IN EITHER LEG. Limited visualization of the femoral veins. Chest/Abdomen CTA 07/15/17 13:02 IMPRESSION: 1. Limited by motion. 2. Extensive lung findings to include consolidation and collapse throughout the right lower lobe, lesser changes in the left lower lobe. Associated bilateral small effusions. 3. No pulmonary embolus detected. Assessment & Plan - Diagnosis (1) Acute and chronic respiratory failure with hypoxia Is this a current diagnosis for this admission?: Yes Plan: stable; continue to wean down supplemental O2 as tolerated (2) Acute diastolic CHF (congestive heart failure) Is this a current diagnosis for this admission?: Yes Plan: continue attempts at gentle daily 1L diuresis for now as she is improving. (3) Elevated troponin I level Is this a current diagnosis for this admission?: Yes Plan: troponin leak due to resp distress and aflutter/fib; stable, per cardiology (4) Paroxysmal atrial fibrillation Is this a current diagnosis for this admission?: Yes Plan: continue current regimen. (5) Hypertension Qualifiers: Hypertension type: unspecified Qualified Code(s): I10 - Essential (primary ) hypertension Is this a current diagnosis for this admission?: Yes (6) Moderate to severe pulmonary hypertension Is this a current diagnosis for this admission?: Yes (7) Morbid (severe) obesity due to excess calories Is this a current diagnosis for this admission?: Yes (8) CAP (community acquired pneumonia) Qualifiers: Laterality: right Lung location: lower lobe of lung Qualified Code(s): J18.1 - Lobar pneumonia, unspecified organism Is this a current diagnosis for this admission?: Yes Plan: unclear pathogen, currently on day 7 of zithromax and with the dense consolidation would recommend a 10d course and then re-evaluate. she is getting better so i don't think broadening her abx is of benefit at this time. - Time Time Spent with patient: 35 or more minutes Medications reviewed and adjusted accordingly: Yes - Plan Summary Plan Summary: continue calderon for strict I/O's as we diurese; monitor renal function awaiting placement/rehab options
[2017-07-17] MEDS: MONTELUKAST SODIUM 10 MG TABLET PO SCH (17:09)
[2017-07-17] MEDS ORDERED: METOPROLOL TARTRATE 25 MG TABLET PO ONE (17:30)
--- NOTE | 2017-07-17 19:46 | PDOC PROGRESS REPORT ---
Subjective Progress Note for:: 07/17/17 Subjective:: Patient seems to be doing better with gradual improvement. Pt is denying any chest arm or neck discomfort. Patient denying any PND, orthopnea. Patient denied any sustained palpitations, dizziness, syncope, near syncope. Patient denying any fever chills. Patient denying any other significant discomfort. Patient is atrial flutter fibrillation. Heart rate generally well controlled.. Review of systems: Rest review of systems negative. Medications: Medications have been reviewed. Physical Exam Vital Signs: Temp Pulse Resp BP Pulse Ox 98.5 F 62 22 H 119/73 95 07/17/17 15:23 07/17/17 16:21 07/17/17 16:52 07/17/17 15:23 07/17/17 16:21 Intake & Output 07/16/17 07/17/17 07/18/17 06:59 06:59 06:59 Intake Total 2345 1023 505 Output Total 3550 2850 1150 Balance -1205 -1827 -645 Weight 143.8 kg 140.6 kg Exam: GENERAL: well-nourished and in no acute distress. Alert and oriented x3 HEAD: Atraumatic, normocephalic. EYES: Pupils equal round and reactive to light, extraocular movements intact, sclera anicteric, conjunctiva are normal. ENT: TMs normal, nares patent, oropharynx clear without exudates. Moist mucous membranes. No oral ulcerations or bleeding gums noted NECK: supple without lymphadenopathy. Trachea is central. No cervical or axillary lymphadenopathy noted. Carotids are 2+, JVD WNL LUNGS: Respiration seems nonlabored, no significant accessory muscle action noted. Breath sounds clear to auscultation bilaterally and equal noted. No wheezes rales or rhonchi noted. No significant dullness noted on percussion. CHEST: Palpation of the chest wall shows no significant chest wall tenderness. No other significant abnormalities noted. HEART: [place], No PSH, 1/6 SONDRA aortic area, 1/6 mccray systolic murmur mitral area, no rubs, no gallops. ABDOMEN: Soft, no significant tenderness appreciated, normoactive bowel sounds. No guarding, no rebound. No rigidity noted . No masses appreciated. EXTREMITIES: Pedal pulses are 1-2+, no calf tenderness noted. No clubbing or cyanosis.trace to 1+ pedal edema noted NEUROLOGICAL: Focused neurological exam showed no significant neurologic deficit. Normal speech, no focal weakness appreciated. PSYCH: Normal mood, normal affect. Judgment and insight within normal limits. SKIN: No significant ecchymosis, rash, ulcerations or signs of pruritus noted. MUSCULOSKELETAL EXAM: No significant joint swelling noted. Results Laboratory Results: 07/16/17 04:33 07/17/17 04:13 07/17/17 04:13 Sodium 138.9 Potassium 4.7 Chloride 91 L Carbon Dioxide 38 H Anion Gap 10 BUN 56 H Creatinine 1.36 H Est GFR ( Amer) 46 L Est GFR (Non-Af Amer) 38 L Glucose 111 H Calcium 8.1 L Magnesium 2.1 07/10/17 07/10/17 07/11/17 16:40 22:00 06:12 Creatine Kinase CK-MB (CK-2) Troponin I < 0.012 < 0.012 0.014 NT-Pro-B Natriuret Pep 6370 H 07/15/17 07/15/17 07/15/17 11:54 11:54 17:20 Creatine Kinase 23 L 39 CK-MB (CK-2) 1.81 Troponin I 0.122 NT-Pro-B Natriuret Pep 07/15/17 07/15/17 07/15/17 17:20 23:18 23:18 Creatine Kinase < 20 L CK-MB (CK-2) 1.69 1.72 Troponin I 0.124 0.115 NT-Pro-B Natriuret Pep EKG Comments: Atrial flutter fibrillation with controlled ventricular response Impressions: Chest X-Ray 07/10/17 12:34 IMPRESSION: CARDIAC ENLARGEMENT. VASCULAR CONGESTION. Venous Doppler Study 07/15/17 00:00 IMPRESSION: NO EVIDENCE DVT OR SVT IN EITHER LEG. Limited visualization of the femoral veins. Chest/Abdomen CTA 07/15/17 13:02 IMPRESSION: 1. Limited by motion. 2. Extensive lung findings to include consolidation and collapse throughout the right lower lobe, lesser changes in the left lower lobe. Associated bilateral small effusions. 3. No pulmonary embolus detected. Assessment & Plan - Diagnosis (1) Paroxysmal atrial fibrillation Is this a current diagnosis for this admission?: Yes (2) Acute and chronic respiratory failure with hypoxia Is this a current diagnosis for this admission?: Yes (3) Acute diastolic CHF (congestive heart failure) Is this a current diagnosis for this admission?: Yes (4) Hypertension Qualifiers: Hypertension type: unspecified Qualified Code(s): I10 - Essential (primary ) hypertension Is this a current diagnosis for this admission?: Yes (5) Moderate to severe pulmonary hypertension Is this a current diagnosis for this admission?: Yes (6) Morbid obesity Is this a current diagnosis for this admission?: Yes (7) Elevated troponin I level Is this a current diagnosis for this admission?: Yes - Notes Notes: Troponin I elevation: Most likely related to respiratory acidosis, hypercapnia and severe hypoxemia. Patient could have underlying CAD but not having any chest pain. At this point would recommend medical management. Persistent atrial fibrillation: Patient noted to have now persistent atrial fibrillation. Recommend rate control and chronic anticoagulation. Patient started on Eliquis. Acute on chronic diastolic CHF: Most likely precipitated by volume overload in setting of diastolic dysfunction and also atrial fibrillation. Patient also has significant element of right-sided heart failure. Moderate to severe pulmonary hypertension: Recommend oxygen supplementation and noninvasive positive pressure ventilation. Patient could start on CPAP/BiPAP therapy while in the hospital. Morbid obesity: Patient has been advised to lose weight. COPD: Continue with current regimen. May consider pulmonary evaluation. Patient has been generally stable from cardiac standpoint. Will sign off. Please reconsult if needed. Patient told me that she has followed up with me for sleep apnea problem. Please make follow-up appointment on discharge. - Time Time with patient: 15-25 minutes - CODE STATUS was discussed, patient remains full code. Surrogate decision-maker unchanged. Multiple medical problems were addressed. More than 50% of the time spent coordinating care, discussing management plans with involved caregivers. Management plans discussed with involved personnels. Medical decision making was of moderate to high complexity , patient's has multiple comorbidities. Medications reviewed and adjusted accordingly: Yes
[2017-07-18] MEDS: LANSOPRAZOLE 15 MG TAB.RAP.DR PO SCH ×2 (05:30→18:43)
[2017-07-18] MEDS ORDERED: FUROSEMIDE 40 MG TABLET PO SCH (07:19)
[2017-07-18] MEDS ORDERED: DILTIAZEM HCL INJ 25 MG/5 ML VIAL IV ONE (07:20)
[2017-07-18 07:27] LABS: BLOOD UREA NITROGEN 63 mg/dL (7-20); CALCIUM 7.8 mg/dL (8.4-10.2); CHLORIDE 87 mmol/L (98-107); CREATININE RESULT 1.33 mg/dL (0.52-1.25); GLUCOSE 110 mg/dL (75-110); MAGNESIUM 2.1 mg/dL (1.6-2.3); POTASSIUM 4.6 mmol/L (3.6-5.0); SODIUM 138.3 mmol/L (137-145)
[2017-07-18 07:34] LABS: ANION GAP 11 (5-19)
[2017-07-18 07:43] LABS: CARBON DIOXIDE 40 mmol/L (22-30)
[2017-07-18] MEDS: IPRATROPIUM/ALBUTEROL 0.5-2.5 MG/3 ML AMPUL NEB SCH (08:15)
[2017-07-18] MEDS ORDERED: METOPROLOL TARTRATE 25 MG TABLET PO SCH (10:00)
[2017-07-18] MEDS: CITALOPRAM HYDROBROMIDE 20 MG TABLET PO SCH (10:23)
[2017-07-18] MEDS: DOCUSATE SODIUM 100 MG CAPSULE PO SCH (10:24)
[2017-07-18] MEDS: ASPIRIN 81 MG TABLET, ENT COATED PO SCH (10:24)
[2017-07-18] MEDS: FUROSEMIDE 20 MG TABLET PO SCH ×2 (10:24→18:42)
[2017-07-18] MEDS: METOPROLOL TARTRATE 25 MG TABLET PO SCH ×2 (10:24→22:15)
[2017-07-18] MEDS: FLUTICASONE/SALMETEROL DISKUS 250-50 MCG/DOSE IH SCH ×2 (10:26→22:16)
[2017-07-18] MEDS: APIXABAN 2.5 MG TABLET PO SCH ×2 (10:27→18:40)
[2017-07-18] MEDS: PREDNISONE 10 MG TABLET PO SCH (10:28)
[2017-07-18] MEDS: NYSTATIN TOPICAL POWDER 15 GM TP SCH ×2 (10:30→22:16)
[2017-07-18] MEDS ORDERED: AZITHROMYCIN 250 MG TABLET PO ONE (11:00)
--- NOTE | 2017-07-18 11:10 | PDOC PROGRESS REPORT ---
Subjective Progress Note for:: 07/18/17 Subjective:: f/u: acute on chronic hypoxic resp failure, diastolic HF, afib, COPD exac and poss PNA reports she is doing ok, still SOA from time to time but much better than when she arrived; still wheezing with minimal exertion and dry hacking cough. she denies chest pain, palpitations, N/V/D, melena, hematochezi though her heart rate remains elevated. she underwent CTA chest 07/15 and no PE but large segment of the RLL collapsed with small effusion noted as well. she remains on Zmax and prednisone. Nursing reports the patient is refusing to wear her CPAP overnight. ROS: as above, all systems reviewed, remaining systems negative. she still has calderon cath in place due to immobility and I/O monitoring, neg 1.8L last 24hrs. Physical Exam Vital Signs: Temp Pulse Resp BP Pulse Ox 98.9 F 116 H 18 114/79 95 07/18/17 07:43 07/18/17 08:17 07/18/17 08:17 07/18/17 07:43 07/18/17 08:17 Intake & Output 07/17/17 07/18/17 07/19/17 06:59 06:59 06:59 Intake Total 1023 771 Output Total 2850 2550 Balance -1827 -1779 Weight 140.6 kg 142.4 kg General appearance: PRESENT: no acute distress, morbidly obese, resting comfortably when I arrived Head exam: PRESENT: atraumatic Eye exam: PRESENT: EOMI. ABSENT: scleral icterus Mouth exam: PRESENT: moist Neck exam: PRESENT: full ROM. ABSENT: tenderness Respiratory exam: PRESENT: crackles - diffusely R>L, unchanged, mild wheezes - faint end exp. ABSENT: accessory muscle use Cardiovascular exam: PRESENT: RRR. ABSENT: systolic murmur, tachycardia Extremities exam: PRESENT: pedal edema - trace. ABSENT: calf tenderness Musculoskeletal exam: PRESENT: full ROM. ABSENT: tenderness Neurological exam: PRESENT: alert, awake, oriented to person, oriented to place , oriented to situation Psychiatric exam: PRESENT: normal mood. ABSENT: anxious Skin exam: PRESENT: dry, warm Results Laboratory Results: 07/16/17 04:33 07/18/17 06:33 07/18/17 06:33 Sodium 138.3 Potassium 4.6 Chloride 87 L Carbon Dioxide 40 H* Anion Gap 11 BUN 63 H Creatinine 1.33 H Est GFR ( Amer) 47 L Est GFR (Non-Af Amer) 39 L Glucose 110 Calcium 7.8 L Magnesium 2.1 07/10/17 07/10/17 07/11/17 16:40 22:00 06:12 Creatine Kinase CK-MB (CK-2) Troponin I < 0.012 < 0.012 0.014 NT-Pro-B Natriuret Pep 6370 H 07/15/17 07/15/17 07/15/17 11:54 11:54 17:20 Creatine Kinase 23 L 39 CK-MB (CK-2) 1.81 Troponin I 0.122 NT-Pro-B Natriuret Pep 07/15/17 07/15/17 07/15/17 17:20 23:18 23:18 Creatine Kinase < 20 L CK-MB (CK-2) 1.69 1.72 Troponin I 0.124 0.115 NT-Pro-B Natriuret Pep Impressions: Chest/Abdomen CTA 07/15/17 13:02 IMPRESSION: 1. Limited by motion. 2. Extensive lung findings to include consolidation and collapse throughout the right lower lobe, lesser changes in the left lower lobe. Associated bilateral small effusions. 3. No pulmonary embolus detected. Assessment & Plan - Diagnosis (1) Paroxysmal atrial fibrillation Is this a current diagnosis for this admission?: Yes Plan: I think the persistent tachycardia is likely the result of overdiuresis at this point evidenced by contraction alkalosis on basic metabolic panel. Will decrease diuretics, give a single dose of Cardizem and increase Toprol dose. (2) Acute and chronic respiratory failure with hypoxia Is this a current diagnosis for this admission?: Yes Plan: stable; continue to wean down supplemental O2 as tolerated, continue systemic steroids and as needed nebs but discontinue the scheduled albuterol due to the persistent tachycardia. (3) Acute diastolic CHF (congestive heart failure) Is this a current diagnosis for this admission?: Yes Plan: Improved however now developing a contraction alkalosis. Decrease diuretics and monitor for effect. (4) Elevated troponin I level Is this a current diagnosis for this admission?: Yes Plan: troponin leak due to resp distress and aflutter/fib; stable, per cardiology (5) Hypertension Qualifiers: Hypertension type: unspecified Qualified Code(s): I10 - Essential (primary ) hypertension Is this a current diagnosis for this admission?: Yes (6) Moderate to severe pulmonary hypertension Is this a current diagnosis for this admission?: Yes Plan: Certainly complicates her recovery. She is home O2 dependent at 3 L/min. (7) Morbid (severe) obesity due to excess calories Is this a current diagnosis for this admission?: Yes Plan: I believe adds a restrictive component to her respiratory difficulties and certainly complicates her recovery. (8) CAP (community acquired pneumonia) Qualifiers: Laterality: right Lung location: lower lobe of lung Qualified Code(s): J18.1 - Lobar pneumonia, unspecified organism Is this a current diagnosis for this admission?: Yes Plan: unclear pathogen, currently on day 8 of zithromax and with the dense consolidation would recommend a 10d course and then re-evaluate. she is getting better so i don't think broadening her abx is of benefit at this time. (9) Metabolic alkalosis with respiratory acidosis Is this a current diagnosis for this admission?: Yes Plan: And I think a component of contraction alkalosis due to diuresis. Treatment as noted above. Patient was encouraged to resume use of her nocturnal CPAP but does not appear she is willing at least at this time. - Time Time Spent with patient: 35 or more minutes Medications reviewed and adjusted accordingly: Yes
[2017-07-18] MEDS: MONTELUKAST SODIUM 10 MG TABLET PO SCH (18:42)
[2017-07-19 05:27] LABS: ABSOLUTE LYMPHOCYTES (AUTO) 0.8 10^3/uL (0.5-4.7); ABSOLUTE MONOCYTES (AUTO) 0.6 10^3/uL (0.1-1.4); ABSOLUTE NEUT (AUTO) 5.7 10^3/uL (1.7-8.2); BASOPHILS % (AUTO) 0.6 % (0-2); EOSINOPHILS % (AUTO) 0.6 % (0-6); HEMATOCRIT 32.9 % (36.0-47.0); HEMOGLOBIN 10.7 g/dL (12.0-15.5); HGB HCT DIFFERENCE -0.8; LYMPHOCYTES % (AUTO) 10.9 % (13-45); MEAN CORPUSCULAR HEMOGLOBIN 28.7 pg (27.0-33.4); MEAN CORPUSCULAR HGB CONC 32.5 g/dL (32.0-36.0); MEAN CORPUSCULAR VOLUME 88 fl (80-97); MONOCYTES % (AUTO) 8.9 % (3-13); RED BLOOD COUNT 3.73 10^6/uL (3.72-5.28); RED CELL DISTRIBUTION WIDTH 16.3 % (11.5-14.0); WHITE BLOOD COUNT 7.2 10^3/uL (4.0-10.5)
[2017-07-19 05:43] LABS: BLOOD UREA NITROGEN 65 mg/dL (7-20); CALCIUM 8.2 mg/dL (8.4-10.2); CHLORIDE 85 mmol/L (98-107); CREATININE RESULT 1.31 mg/dL (0.52-1.25); GLUCOSE 110 mg/dL (75-110); POTASSIUM 4.7 mmol/L (3.6-5.0); SODIUM 135.4 mmol/L (137-145)
[2017-07-19 05:55] LABS: ANION GAP 8 (5-19)
[2017-07-19 06:18] LABS: CARBON DIOXIDE 42 mmol/L (22-30)
[2017-07-19] MEDS: LANSOPRAZOLE 15 MG TAB.RAP.DR PO SCH ×2 (06:33→17:27)
[2017-07-19] MEDS: PREDNISONE 10 MG TABLET PO SCH (09:42)
[2017-07-19] MEDS: METOPROLOL TARTRATE 25 MG TABLET PO SCH ×2 (09:43→21:36)
[2017-07-19] MEDS: CITALOPRAM HYDROBROMIDE 20 MG TABLET PO SCH (09:43)
[2017-07-19] MEDS: DOCUSATE SODIUM 100 MG CAPSULE PO SCH (09:43)
[2017-07-19] MEDS: FUROSEMIDE 20 MG TABLET PO SCH ×2 (09:44→17:26)
[2017-07-19] MEDS: ASPIRIN 81 MG TABLET, ENT COATED PO SCH (09:44)
[2017-07-19] MEDS: APIXABAN 2.5 MG TABLET PO SCH ×2 (09:44→17:27)
[2017-07-19] MEDS: AZITHROMYCIN 250 MG TABLET PO SCH (09:45)
[2017-07-19] MEDS: FLUTICASONE/SALMETEROL DISKUS 250-50 MCG/DOSE IH SCH ×2 (09:46→21:38)
[2017-07-19] MEDS: NYSTATIN TOPICAL POWDER 15 GM TP SCH ×2 (09:48→21:38)
[2017-07-19] MEDS: ALBUTEROL SULFATE 0.083% NEB 2.5 MG/3 ML AMPUL NEB PRN (11:44)
[2017-07-19] MEDS: MONTELUKAST SODIUM 10 MG TABLET PO SCH (17:27)
--- NOTE | 2017-07-19 17:52 | PDOC PROGRESS REPORT ---
Subjective Progress Note for:: 07/19/17 Subjective:: Patient states she is feeling considerably better today. She thinks she is almost back to normal. She was able to wear the AVAP machine last night. More than anything she would like to have a Coke and some ice. No new shortness of breath or chest pain, no constipation or diarrhea. No urinary complaints. No abdominal pain. She is too weak to get up into a chair she thinks. She tells me at home she can walk around a little bit on her own but not much. Reason For Visit: ACUTE ON CHRONIC HYPOXIC RESP FAILURE Physical Exam Vital Signs: Temp Pulse Resp BP Pulse Ox 98.2 F 131 H 22 H 110/77 94 07/19/17 16:07 07/19/17 16:07 07/19/17 16:07 07/19/17 16:07 07/19/17 16:07 Intake & Output 07/18/17 07/19/17 07/20/17 06:59 06:59 06:59 Intake Total 771 1091 120 Output Total 2550 1750 200 Balance -1779 -659 -80 Weight 142.4 kg 138.8 kg General appearance: PRESENT: no acute distress, cooperative, morbidly obese Head exam: PRESENT: atraumatic, normocephalic Eye exam: PRESENT: conjunctiva pink, EOMI, PERRLA. ABSENT: scleral icterus Ear exam: PRESENT: normal external ear exam Mouth exam: PRESENT: dry mucosa Neck exam: ABSENT: lymphadenopathy Respiratory exam: PRESENT: clear to auscultation dena, decreased breath sounds, other - Slightly labored breathing which she feels is her baseline. ABSENT: chest wall tenderness, prolonged expiratory phas, rales, rhonchi, stridor Vascular exam: PRESENT: normal capillary refill Extremities exam: ABSENT: calf tenderness, tenderness Musculoskeletal exam: PRESENT: other - Obese extremities. ABSENT: ambulatory Neurological exam: PRESENT: alert, awake, oriented to person, oriented to place , oriented to time, oriented to situation Psychiatric exam: PRESENT: appropriate affect. ABSENT: agitated, anxious Results Laboratory Results: 07/19/17 05:05 07/19/17 05:05 07/19/17 07/19/17 05:05 05:05 WBC 7.2 RBC 3.73 Hgb 10.7 L Hct 32.9 L MCV 88 MCH 28.7 MCHC 32.5 RDW 16.3 H Plt Count 185 Seg Neutrophils % 79.0 H Lymphocytes % 10.9 L Monocytes % 8.9 Eosinophils % 0.6 Basophils % 0.6 Absolute Neutrophils 5.7 Absolute Lymphocytes 0.8 Absolute Monocytes 0.6 Absolute Eosinophils 0.0 Absolute Basophils 0.0 Sodium 135.4 L Potassium 4.7 Chloride 85 L Carbon Dioxide 42 H* Anion Gap 8 BUN 65 H Creatinine 1.31 H Est GFR ( Amer) 48 L Est GFR (Non-Af Amer) 40 L Glucose 110 Calcium 8.2 L 07/10/17 07/10/17 07/11/17 16:40 22:00 06:12 Creatine Kinase CK-MB (CK-2) Troponin I < 0.012 < 0.012 0.014 NT-Pro-B Natriuret Pep 6370 H 07/15/17 07/15/17 07/15/17 11:54 11:54 17:20 Creatine Kinase 23 L 39 CK-MB (CK-2) 1.81 Troponin I 0.122 NT-Pro-B Natriuret Pep 07/15/17 07/15/17 07/15/17 17:20 23:18 23:18 Creatine Kinase < 20 L CK-MB (CK-2) 1.69 1.72 Troponin I 0.124 0.115 NT-Pro-B Natriuret Pep Impressions: Chest X-Ray 07/10/17 12:34 IMPRESSION: CARDIAC ENLARGEMENT. VASCULAR CONGESTION. Venous Doppler Study 07/15/17 00:00 IMPRESSION: NO EVIDENCE DVT OR SVT IN EITHER LEG. Limited visualization of the femoral veins. Chest/Abdomen CTA 07/15/17 13:02 IMPRESSION: 1. Limited by motion. 2. Extensive lung findings to include consolidation and collapse throughout the right lower lobe, lesser changes in the left lower lobe. Associated bilateral small effusions. 3. No pulmonary embolus detected. Assessment & Plan - Diagnosis (1) Obstructive sleep apnea Is this a current diagnosis for this admission?: Yes Plan: Patient has not been willing to use CPAP. She states she has been awaiting a new BiPAP but it has not yet gotten to her home. We are trying to arrange for BiPAP to be used starting in the [facility] facility to which she is discharging. (2) Acute and chronic respiratory failure with hypoxia Is this a current diagnosis for this admission?: Yes Plan: Multifactorial with her morbid obesity, obstructive sleep apnea, chronic lung disease all playing roles. She is improving with treatment of underlying conditions and this will continue>>treatment of underlying conditions. (3) Acute diastolic CHF (congestive heart failure) Is this a current diagnosis for this admission?: Yes Plan: Patient has been diuresed effectively. She developed a contraction alkalosis. Lasix has been titrated down and I will titrate down further now to 20 mg p.o. every morning. Will recheck basic metabolic panel in the morning. (4) Elevated troponin I level Is this a current diagnosis for this admission?: Yes Plan: Per cardiology the patient's troponin elevation was likely due to respiratory distress and A. fib flutter. (5) Paroxysmal atrial fibrillation Is this a current diagnosis for this admission?: Yes Plan: Rate not well controlled today, will increase her metoprolol to 37.5 mg p.o. twice daily we will continue her apixaban for anticoagulation. (6) Hypertension Qualifiers: Hypertension type: unspecified Qualified Code(s): I10 - Essential (primary ) hypertension Is this a current diagnosis for this admission?: Yes (7) Moderate to severe pulmonary hypertension Is this a current diagnosis for this admission?: Yes Plan: At home patient is on 3 L of oxygen by nasal cannula. (8) Morbid (severe) obesity due to excess calories Is this a current diagnosis for this admission?: Yes (9) CAP (community acquired pneumonia) Qualifiers: Laterality: right Lung location: lower lobe of lung Qualified Code(s): J18.1 - Lobar pneumonia, unspecified organism Is this a current diagnosis for this admission?: Yes - Time Time Spent with patient: 35 or more minutes
[2017-07-20] MEDS: LANSOPRAZOLE 15 MG TAB.RAP.DR PO SCH ×2 (05:05→17:10)
[2017-07-20 05:47] LABS: BLOOD UREA NITROGEN 68 mg/dL (7-20); CALCIUM 8.2 mg/dL (8.4-10.2); CHLORIDE 84 mmol/L (98-107); CREATININE RESULT 1.23 mg/dL (0.52-1.25); GLUCOSE 110 mg/dL (75-110); POTASSIUM 4.5 mmol/L (3.6-5.0); SODIUM 136.1 mmol/L (137-145)
[2017-07-20 05:49] LABS: ANION GAP 12 (5-19)
[2017-07-20 06:08] LABS: CARBON DIOXIDE 40 mmol/L (22-30)
[2017-07-20] MEDS: APIXABAN 2.5 MG TABLET PO SCH (09:12)
[2017-07-20] MEDS: ASPIRIN 81 MG TABLET, ENT COATED PO SCH (09:13)
[2017-07-20] MEDS: FLUTICASONE/SALMETEROL DISKUS 250-50 MCG/DOSE IH SCH ×2 (09:13→21:46)
[2017-07-20] MEDS: METOPROLOL TARTRATE 25 MG TABLET PO SCH (09:13)
[2017-07-20] MEDS: DOCUSATE SODIUM 100 MG CAPSULE PO SCH (09:14)
[2017-07-20] MEDS: AZITHROMYCIN 250 MG TABLET PO SCH (09:14)
[2017-07-20] MEDS: CITALOPRAM HYDROBROMIDE 20 MG TABLET PO SCH (09:14)
[2017-07-20] MEDS: PREDNISONE 10 MG TABLET PO SCH (09:14)
[2017-07-20] MEDS: NYSTATIN TOPICAL POWDER 15 GM TP SCH ×2 (09:15→21:47)
[2017-07-20] MEDS ORDERED: FUROSEMIDE 20 MG TABLET PO SCH (10:00)
[2017-07-20] MEDS ORDERED: METOPROLOL TARTRATE 25 MG TABLET PO ONE (15:00)
[2017-07-20] MEDS: MONTELUKAST SODIUM 10 MG TABLET PO SCH (17:10)
[2017-07-20] MEDS: APIXABAN 5 MG TABLET PO SCH (17:10)
--- NOTE | 2017-07-20 19:18 | PDOC PROGRESS REPORT ---
Subjective Progress Note for:: 07/20/17 Subjective:: She feels ok today, still refusing to wear her hospital bipap and saying the mask does not fit right. No CP or palpitations. Eating and drinking well. Still not able to get out of bed. Feels too weak. We talked about code status and she wants to remain full code, feeling that her quality of life is good. Reason For Visit: ACUTE ON CHRONIC HYPOXIC RESP FAILURE, new onset AFib Physical Exam Vital Signs: Temp Pulse Resp BP Pulse Ox 97.5 F 125 H 22 H 94/72 L 90 L 07/20/17 15:31 07/20/17 15:31 07/20/17 15:31 07/20/17 15:31 07/20/17 15:31 Intake & Output 07/19/17 07/20/17 07/21/17 06:59 06:59 06:59 Intake Total 1091 600 400 Output Total 1750 1425 250 Balance -659 -825 150 Weight 138.8 kg 134.3 kg General appearance: PRESENT: no acute distress, cooperative, morbidly obese Head exam: PRESENT: atraumatic, normocephalic Eye exam: PRESENT: conjunctiva pink Ear exam: PRESENT: normal external ear exam Mouth exam: PRESENT: moist Respiratory exam: PRESENT: clear to auscultation dena. ABSENT: rales, rhonchi, wheezes Cardiovascular exam: PRESENT: irregular rhythm, tachycardia GI/Abdominal exam: PRESENT: normal bowel sounds, soft, other - Morbidly obese abdomen which makes exam compromised. ABSENT: distended, guarding, mass, organolmegaly, rebound, tenderness Extremities exam: ABSENT: tenderness Musculoskeletal exam: PRESENT: normal inspection - Other than significant obesity Neurological exam: PRESENT: alert, awake, oriented to person, oriented to place , oriented to situation Psychiatric exam: PRESENT: flat affect Results Laboratory Results: 07/19/17 05:05 07/20/17 04:49 07/20/17 04:49 Sodium 136.1 L Potassium 4.5 Chloride 84 L Carbon Dioxide 40 H* Anion Gap 12 BUN 68 H Creatinine 1.23 Est GFR ( Amer) 52 L Est GFR (Non-Af Amer) 43 L Glucose 110 Calcium 8.2 L 07/10/17 07/10/17 07/11/17 16:40 22:00 06:12 Creatine Kinase CK-MB (CK-2) Troponin I < 0.012 < 0.012 0.014 NT-Pro-B Natriuret Pep 6370 H 07/15/17 07/15/17 07/15/17 11:54 11:54 17:20 Creatine Kinase 23 L 39 CK-MB (CK-2) 1.81 Troponin I 0.122 NT-Pro-B Natriuret Pep 07/15/17 07/15/17 07/15/17 17:20 23:18 23:18 Creatine Kinase < 20 L CK-MB (CK-2) 1.69 1.72 Troponin I 0.124 0.115 NT-Pro-B Natriuret Pep Impressions: Chest X-Ray 07/10/17 12:34 IMPRESSION: CARDIAC ENLARGEMENT. VASCULAR CONGESTION. Venous Doppler Study 07/15/17 00:00 IMPRESSION: NO EVIDENCE DVT OR SVT IN EITHER LEG. Limited visualization of the femoral veins. Chest/Abdomen CTA 07/15/17 13:02 IMPRESSION: 1. Limited by motion. 2. Extensive lung findings to include consolidation and collapse throughout the right lower lobe, lesser changes in the left lower lobe. Associated bilateral small effusions. 3. No pulmonary embolus detected. Assessment & Plan - Diagnosis (1) Obstructive sleep apnea Is this a current diagnosis for this admission?: Yes Plan: Patient was prescribed BiPAP by her outpatient physician. Sister is going to burr picker the BiPAP today and bring it in so that we can get it fitted while she is here in order to help prepare for a safe discharge. I am hoping that with a well fitting mask the patient will be more willing to wear her BiPAP. (2) Acute and chronic respiratory failure with hypoxia Is this a current diagnosis for this admission?: Yes Plan: Patient is returning to baseline. She has multifactorial chronic respiratory failure. (3) Acute diastolic CHF (congestive heart failure) Is this a current diagnosis for this admission?: Yes Plan: Yesterday Lasix was decreased from 20 p.o. twice daily to 20 p.o. daily due to contraction alkalosis. He continues to diurese well and still has a contraction alkalosis so I am going to hold her Lasix for now and recheck her basic metabolic panel in the morning. (4) Elevated troponin I level Is this a current diagnosis for this admission?: Yes (5) Paroxysmal atrial fibrillation Is this a current diagnosis for this admission?: Yes Plan: Patient today has had heart rate in the 120s, asymptomatic. Yesterday her metoprolol was increased to 37.5 mg p.o. twice daily which helped her for a while but she is elevated again today. I am going to increase her metoprolol to 50 mg p.o. every 12. (6) Hypertension Qualifiers: Hypertension type: unspecified Qualified Code(s): I10 - Essential (primary ) hypertension Is this a current diagnosis for this admission?: Yes (7) Moderate to severe pulmonary hypertension Is this a current diagnosis for this admission?: Yes (8) Morbid (severe) obesity due to excess calories Is this a current diagnosis for this admission?: Yes Plan: pt not willing to lose weight at this point, does not thinks she is able (9) CAP (community acquired pneumonia) Qualifiers: Laterality: right Lung location: lower lobe of lung Qualified Code(s): J18.1 - Lobar pneumonia, unspecified organism Is this a current diagnosis for this admission?: Yes Plan: We will continue full course of azithromycin. Patient is improved from this perspective without fever or sputum production. - Time Time Spent with patient: 35 or more minutes
[2017-07-20 20:44] LABS: ANION GAP 11 (5-19); BLOOD UREA NITROGEN 76 mg/dL (7-20); CALCIUM 8.3 mg/dL (8.4-10.2); CARBON DIOXIDE 38 mmol/L (22-30); CHLORIDE 85 mmol/L (98-107); GLUCOSE 211 mg/dL (75-110); POTASSIUM 4.9 mmol/L (3.6-5.0); SODIUM 134.3 mmol/L (137-145)
[2017-07-20] MEDS: METOPROLOL TARTRATE 50 MG TABLET PO SCH (21:50)
[2017-07-21] MEDS: LANSOPRAZOLE 15 MG TAB.RAP.DR PO SCH ×2 (05:24→17:23)
[2017-07-21] MEDS: DOCUSATE SODIUM 100 MG CAPSULE PO SCH (09:04)
[2017-07-21] MEDS: APIXABAN 5 MG TABLET PO SCH ×2 (09:04→17:23)
[2017-07-21] MEDS: ASPIRIN 81 MG TABLET, ENT COATED PO SCH (09:04)
[2017-07-21] MEDS: AZITHROMYCIN 250 MG TABLET PO SCH (09:05)
[2017-07-21] MEDS: CITALOPRAM HYDROBROMIDE 20 MG TABLET PO SCH (09:05)
[2017-07-21] MEDS: PREDNISONE 10 MG TABLET PO SCH (09:05)
[2017-07-21] MEDS: NYSTATIN TOPICAL POWDER 15 GM TP SCH ×2 (09:06→21:08)
[2017-07-21] MEDS: METOPROLOL TARTRATE 50 MG TABLET PO SCH ×2 (09:06→21:06)
[2017-07-21] MEDS: FLUTICASONE/SALMETEROL DISKUS 250-50 MCG/DOSE IH SCH ×2 (09:06→21:07)
[2017-07-21] MEDS: ALBUTEROL SULFATE 0.083% NEB 2.5 MG/3 ML AMPUL NEB PRN (12:06)
--- NOTE | 2017-07-21 15:39 | PDOC DISCHARGE SUMMARY ---
General - Admit/Disc Date/PCP Admission Date/Primary Care Provider: 07/10/17 14:39 YARELIS MARTINEZ Discharge Date: 07/21/17 - Discharge Diagnosis (1) Obstructive sleep apnea Is this a current diagnosis for this admission?: Yes Summary: Patient has morbid obesity. She has recently been prescribed a BiPAP that has been delivered to the hospital and will be available for use at the half-way facility. She intermittently uses the BiPAP in the hospital and did well with it except when the mask was poorly fitting. (2) Acute and chronic respiratory failure with hypoxia Is this a current diagnosis for this admission?: Yes Summary: This is a multifactorial problem for this patient. She has morbid obesity, pulmonary hypertension, congestive heart failure, obstructive sleep apnea, and acute pneumonia which is resolving. Underlying problems are eating and have been treated. She requires oxygen at baseline, 3 L. (3) Acute diastolic CHF (congestive heart failure) Is this a current diagnosis for this admission?: Yes Summary: Patient was diuresed aggressively and had a contraction alkalosis, lasix decreased and then stopped for a day and CO2 has returned to normal. SNF will need to restart her diuretics. (4) Elevated troponin I level Is this a current diagnosis for this admission?: Yes Summary: no evidence of acute coronary syndrome (5) Paroxysmal atrial fibrillation Is this a current diagnosis for this admission?: Yes Summary: This hospitalization the patient went into A. fib with RVR. This is a new diagnosis for her. She has been on metoprolol 50 mg p.o. twice daily and her rate is better controlled. When she is not exerting herself her rate is controlled and when she exerts her rate goes up but then does resolve. She is also on Eliquis for anticoagulation. She should have cardiology follow-up after discharge from SNF. (6) Hypertension Is this a current diagnosis for this admission?: Yes Summary: Blood pressure has been fluctuating periods I believe that some of the blood pressures we have on record are in accurate secondary to patient's obese arms and cuff sizes. She is not showing signs of hypotension, such as dizziness confusion or lightheadedness. Because she was started on metoprolol I have stopped her outpatient antihypertensives. (7) Moderate to severe pulmonary hypertension Is this a current diagnosis for this admission?: Yes (8) Morbid (severe) obesity due to excess calories Is this a current diagnosis for this admission?: Yes Summary: My chart reviewed this patient has undergone gastric bypass which was not successful given her current morbid obesity. Ideally this patient would undergo aggressive weight loss but at this point I do not know if that is possible for her. The very least hopefully rehab will enable her to be a little bit more mobile so that she can get home to be with her family. (9) CAP (community acquired pneumonia) Is this a current diagnosis for this admission?: Yes Summary: Patient had some wheezing and evidence of pneumonia on admission. She was started on azithromycin and that should be continued for 2 more days. Otherwise no sputum or fever at this time and she is much improved from this perspective. She could use an incentive spirometer if possible at the half-way [facility]. (10) COPD (chronic obstructive pulmonary disease) Is this a current diagnosis for this admission?: Yes Summary: Patient has extensive secondhand tobacco smoke and has been diagnosed with COPD. Continue her bronchodilators and she is on a 5 day course of prednisone 20 mg daily and then prednisone can be discontinued. - Additional Information Resuscitation Status: Full Code Discharge Diet: Cardiac Discharge Activity: Activity As Tolerated, Balance Activity w/Rest, Energy Conservation, Weigh Daily Home Medications: Cholecalciferol (Vitamin D3) [Vitamin D3 1000 Unit Tablet] 1,000 unit PO DAILY 07/10/17 Citalopram Hydrobromide [Celexa 20 mg Tablet] 20 mg PO DAILY 07/10/17 Fluticasone/Salmeterol [Advair 250-50 Diskus 28 dose] 1 puff IH Q12 07/10/17 Hydroxyzine HCl [Atarax 10 mg Tablet] 10 mg PO Q6H 07/10/17 Montelukast Sodium [Singulair 10 mg Tablet] 10 mg PO QPM 07/10/17 Oxybutynin Chloride [Ditropan 5 mg Tablet] 5 mg PO BID 07/10/17 Acetaminophen [Tylenol 325 mg Tablet] 325 mg PO Q4HP PRN tablet 07/21/17 Albuterol Sulfate [Ventolin 0.083% Neb 2.5 mg/3 mL Ampul] 2.5 mg NEB RTQ2HP PRN vial.neb 07/21/17 Apixaban [Eliquis 5 mg Tablet] 5 mg PO BID tablet 07/21/17 Aspirin [Ecotrin 81 mg EC Tablet] 81 mg PO DAILY tabec 07/21/17 Azithromycin [Zithromax 250 mg Tablet] 500 mg PO DAILY tablet 07/21/17 Docusate Sodium [Colace 100 mg Capsule] 100 mg PO DAILY capsule 07/21/17 Flu Vacc [id number] 36Mos Up/Pf [Fluzone Adlt Quad 3606-3074 Vac 0.5 ml Syr] 0.5 ml IM .DISCHARGE PRN disp.syrin 07/21/17 Lansoprazole [Prevacid 15 mg Odt Tablet] 15 mg PO BID@0600,1700 tab.rap.dr Metoprolol Tartrate [Lopressor 50 mg Tablet] 50 mg PO Q12 tablet 07/21/17 Nystatin [Mycostatin Topical Powder 15 gm] 1 applic TP Q12 bottle 07/21/17 Prednisone [Deltasone 20 mg Tablet] 20 mg PO DAILY tablet 07/21/17 History of Present Illness History of Present Illness: ASHLEY COTTRELL is a 72 year old female admitted to the hospitalist service with acute on chronic hypoxemic respiratory failure. This is multifactorial. She was admitted to the hospitalist service for workup and treatment of the various etiologies. Please see individual diagnoses as already dictated. Physical Exam Vital Signs: Temp Pulse Resp BP Pulse Ox 97.5 F 118 H 16 87/71 L 91 L 07/21/17 11:51 07/21/17 12:06 07/21/17 12:06 07/21/17 11:51 07/21/17 12:06 Intake & Output 07/20/17 07/21/17 07/22/17 06:59 06:59 06:59 Intake Total 600 920 0 Output Total 1425 750 100 Balance -825 170 -100 Weight 134.3 kg 135.2 kg General appearance: PRESENT: no acute distress, morbidly obese Head exam: PRESENT: atraumatic, normocephalic Eye exam: PRESENT: EOMI. ABSENT: scleral icterus Ear exam: PRESENT: normal external ear exam Mouth exam: PRESENT: moist Respiratory exam: PRESENT: clear to auscultation dena. ABSENT: rales, wheezes Cardiovascular exam: PRESENT: irregular rhythm. ABSENT: tachycardia GI/Abdominal exam: PRESENT: normal bowel sounds, soft. ABSENT: distended, guarding, mass, organolmegaly, rebound, tenderness Gentrourinary exam: PRESENT: indwelling catheter - Patient becomes more mobile it would be reasonable to discontinue the Santiago catheter. Extremities exam: PRESENT: other - Patient's extremities are obese. It is hard for her to move herself about in bed. He does have some pitting edema dependently. Musculoskeletal exam: PRESENT: other - We see extremity exam above Neurological exam: PRESENT: alert, awake, oriented to person, oriented to place , oriented to time, oriented to situation, CN II-XII grossly intact Psychiatric exam: PRESENT: appropriate affect, normal mood. ABSENT: agitated, anxious Skin exam: PRESENT: dry, warm, other - Patient has significant fungal infection under the pannus and nystatin is being provided.. ABSENT: skin tears Results Laboratory Results: 07/19/17 05:05 07/20/17 19:55 07/20/17 19:55 Sodium 134.3 L Potassium 4.9 Chloride 85 L Carbon Dioxide 38 H Anion Gap 11 BUN 76 H Creatinine 1.60 H Est GFR ( Amer) 38 L Est GFR (Non-Af Amer) 32 L Glucose 211 H Calcium 8.3 L 07/10/17 07/10/17 07/11/17 16:40 22:00 06:12 Creatine Kinase CK-MB (CK-2) Troponin I < 0.012 < 0.012 0.014 NT-Pro-B Natriuret Pep 6370 H 07/15/17 07/15/17 07/15/17 11:54 11:54 17:20 Creatine Kinase 23 L 39 CK-MB (CK-2) 1.81 Troponin I 0.122 NT-Pro-B Natriuret Pep 07/15/17 07/15/17 07/15/17 17:20 23:18 23:18 Creatine Kinase < 20 L CK-MB (CK-2) 1.69 1.72 Troponin I 0.124 0.115 NT-Pro-B Natriuret Pep Impressions: Chest X-Ray 07/10/17 12:34 IMPRESSION: CARDIAC ENLARGEMENT. VASCULAR CONGESTION. Venous Doppler Study 07/15/17 00:00 IMPRESSION: NO EVIDENCE DVT OR SVT IN EITHER LEG. Limited visualization of the femoral veins. Chest/Abdomen CTA 07/15/17 13:02 IMPRESSION: 1. Limited by motion. 2. Extensive lung findings to include consolidation and collapse throughout the right lower lobe, lesser changes in the left lower lobe. Associated bilateral small effusions. 3. No pulmonary embolus detected. Qualifiers PATEINT BEING DISCHARGED WITH ANY OF THE FOLLOWING DIAGNOSIS?: No Plan Time Spent: Greater than 30 Minutes - 45 minutes spent with this patient and discharge, at the bedside
[2017-07-21] MEDS: MONTELUKAST SODIUM 10 MG TABLET PO SCH (17:23)
[2017-07-21 20:50] VITALS: BP 100/69
[2017-07-22] MEDS ORDERED: PREDNISONE 20 MG TABLET PO SCH (10:00)
== END 2017-07-21 22:15 | DRG 189 ==
LOC: ER 12:09 → EH 14:39 → 3S 16:51
PROVIDERS: ADMIT Emergency Medicine; ATTEND Emergency Medicine
PROC: 5A09457 Assistance with Respiratory Ventilation, 24-96 Consecutive Hours, Continuous Positive Airway Pressure (ICD-10-PCS; principal; 2017-07-10)
DX: J96.21 Acute and chronic respiratory failure with hypoxia (principal); I50.33 Acute on chronic diastolic (congestive) heart failure; J18.1 Lobar pneumonia, unspecified organism; J44.0 Chronic obstructive pulmonary disease with (acute) lower respiratory infection; Z68.43 Body mass index [BMI] 50.0-59.9, adult; I11.0 Hypertensive heart disease with heart failure; G47.33 Obstructive sleep apnea (adult) (pediatric); I48.0 Paroxysmal atrial fibrillation; E66.01 Morbid (severe) obesity due to excess calories; Z77.22 Contact with and (suspected) exposure to environmental tobacco smoke (acute) (chronic); M19.90 Unspecified osteoarthritis, unspecified site; D50.9 Iron deficiency anemia, unspecified; D51.9 Vitamin B12 deficiency anemia, unspecified; Z79.899 Other long term (current) drug therapy; Z79.82 Long term (current) use of aspirin; Z98.84 Bariatric surgery status; Z90.49 Acquired absence of other specified parts of digestive tract; Z90.710 Acquired absence of both cervix and uterus; Z88.8 Allergy status to other drugs, medicaments and biological substances
CPT/HCPCS: 36415; 36600; 51702; 71010; 71275; 80048; 80053; 82550; 82553; 82803; 83735; 83880; 84100; 84484; 85025; 85027; 85379; 90686; 93005; 93010; 93306; 93970; 94640; 94660; 94667; 94668; 94799; 96374; 99291; G8978-GP; G8979-GP; G8987-GO; G8988-GO; J1650; J1940; J3490; J7060; J7512; J7620